=== PATIENT | female | born 1950 | race Caucasian/White ===

== ENCOUNTER 2020-05-05 13:50 | Outpatient (CLI) | payer MEDICARE, OTHER ==
[2020-05-05 14:33] LABS: BASOPHILS % (AUTO) 0.4 %; EOSINOPHILS # (AUTO) 0.2 10^3/uL (0.0-0.7); EOSINOPHILS % (AUTO) 1.8 %; HGB - HEMOGLOBIN 8.7 g/dL (12.0-16.0); LYMPHOCYTES # (AUTO) 0.7 10^3/uL (1.5-3.5); LYMPHOCYTES % (AUTO) 8.8 %; MEAN CORPUSCULAR HEMOGLOBIN 30.5 pg (27.0-31.0); MEAN CORPUSCULAR HGB CONC 32.8 g/dL (32.0-36.0); MEAN PLATELET VOLUME 9.9 fL (7.9-10.8); MONOCYTES # (AUTO) 0.6 10^3/uL (0.0-1.0); MONOCYTES % (AUTO) 6.9 %; NEUTROPHILS # (AUTO) 6.6 10^3/uL (1.5-6.6); NEUTROPHILS % (AUTO) 81.2 %; PLT - PLATELET COUNT 207 10^3/uL (130-450); RED BLOOD COUNT 2.85 10^6/uL (4.20-5.40); RED CELL DISTRIBUTION WIDTH 13.1 % (12.0-15.0); WHITE BLOOD COUNT 8.2 x10^3/uL (4.8-10.8)
[2020-05-05 14:51] LABS: CK- CREATINE KINASE 41 IU/L (22-269)
[2020-05-05 15:03] LABS: THYROID STIMULATING HORMONE 1.49 uIU/mL (0.34-5.60)
[2020-05-05 15:14] LABS: CRP - C-REACTIVE PROTEIN < 1.0 mg/dL (0-1.0)
== END 2020-05-05 13:51 | disposition home or self-care (01) ==
LOC: LAB 13:50
PROVIDERS: ATTEND Internal Medicine
DX: D64.9 Anemia, unspecified (principal); R53.1 Weakness; R20.0 Anesthesia of skin
CPT/HCPCS: 36415; 82550; 82607; 84443; 85025; 85651; 86140

== ENCOUNTER 2020-05-12 08:00 | Outpatient (CLI) | payer MEDICARE, OTHER ==
[2020-05-12 17:59] LABS: ABSOLUTE RETICS # AUTO 0.08 10^6/uL (0.020-0.110); RED BLOOD COUNT 2.9 10^6/uL (4.20-5.40)
[2020-05-12 18:35] LABS: FERRITIN 91.9 ng/mL (11.0-306.8)
[2020-05-12 18:42] LABS: FOLATE 7.4 ng/mL (5.90 - >24.8)
[2020-05-12 18:44] LABS: % IRON SATURATION 17 % (20-50); IRON 63 ug/dL (28-170); TOTAL IRON BINDING CAPACITY 367 ug/dL (250-450); TRANSFERRIN 262 mg/dL (192-382)
== END 2020-05-12 23:59 | disposition home or self-care (01) ==
LOC: LAB 08:00
PROVIDERS: ATTEND Internal Medicine
DX: D64.9 Anemia, unspecified (principal)
CPT/HCPCS: 82668; 82728; 82746; 83540; 84466; 85045

== ENCOUNTER 2020-08-29 12:34 | Outpatient (CLI) | payer MEDICARE, OTHER ==
--- NOTE | 2020-08-29 15:45 | MRI Report ---
PROCEDURE: Lumbar Spine W/O INDICATIONS: MUSCLE WEAKNESS TECHNIQUE: Noncontrast sagittal T1 spin echo and T2 fast echo, sagittal STIR, axial T1 and T2 fast spin echo thr ough the lumbar spine. In cases with scoliosis, additional coronal T2 fast spin echo may be performe d. COMPARISON: None. FINDINGS: Image quality: Excellent. Alignment and Curvature: No plain films are available for comparison. There appears to be a transiti onal element at L5. Numbering system should be confirmed with plain film correlation prior to any lum bar spinal intervention. There is mild, rate 1 retrolisthesis of L3 on L4. Mild grade 1 anterolisthes is of L4 on L5. Bone Marrow: Marrow is of normal overall signal. No acute vertebral body compression fractures. Mi ld reactive signal within the end plates adjacent to the L3-L4 and L4-L5 intervertebral disc. Spinal Cord: Conus medullaris terminates at the mid L1 level. Visualized cord demonstrates normal s ignal and size. Paraspinous Soft Tissues: No paravertebral masses. T12-L1: Mild disc height loss and desiccation. No significant canal, nor foraminal stenosis. L1-L2: Mild disc height loss and desiccation. No significant canal, nor foraminal stenosis. L2-L3: Mild disc desiccation. Mild facet hypertrophy bilaterally. No significant canal, nor forami nal stenosis. L3-L4: Mild disc height loss and desiccation. Mild diffuse disc bulge. Mild facet and ligament flav um hypertrophy. Mild canal stenosis. Mild bilateral foraminal stenosis. L4-L5: Moderate disc height loss and desiccation. Mild diffuse disc bulge. Moderate bilateral facet hypertrophy. Mild canal stenosis. Mild bilateral foraminal stenosis. L5-S1: Rudimentary appearing disc. Mild bilateral facet hypertrophy. No significant canal, nor fora katherine stenosis. IMPRESSION: 1. 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 Correlation with plainfilms f or numbering purposes is recommended prior to any lumbar spinal intervention. 2. Multilevel degenerative disc and facet disease, in addition to epidural lipomatosis and ligamentum flavum hypertrophy. 3. Mild multilevel canal and foraminal stenoses. No neural impingement. Reviewed by: Uche Ivey MD on 08/29/2020 3:44 PM PST Approved by: Uche Ivey MD on 08/29/2020 3:44 PM PST Station ID: [id number]
--- NOTE | 2020-08-29 17:16 | MRI Report ---
PROCEDURE: Pelvis W/O INDICATIONS: MUSCLES WEAKNESS, RECURRENT FALLS, KIDNEY DIEASE TECHNIQUE: Noncontrast coronal oblique T1 and STIR, axial T1 and STIR, sagittal STIR obtained through the sacrum . COMPARISON: Concurrent study of the lumbar spine. FINDINGS: Image quality: Diagnostic. Bony structures: No bone marrow contusions or fractures of the visualized bony structures. Specifica lly, no sacral fracture identified. Soft tissues: There is mild edema within the visualized right gluteus medius and minimus muscles as well as the right iliacus muscle compatible with mild muscle strains. These are incompletely visualiz ed on the current study. Mild to moderate fatty atrophy of the gluteal muscles are also noted bilater ally. No presacral fluid collections. There is a small amount of nonspecific free fluid within the pelvis. Visualized bowel loops are normal in caliber. There is colonic diverticulosis. The urinary bladder is partially distended. IMPRESSION: 1. No evidence of sacral fracture. 2. Mild strains of the right gluteal and iliacus muscles. 3. Small amount of nonspecific free fluid in the pelvis. Reviewed by: Ludwig Ta MD on 08/29/2020 5:15 PM PST Approved by: Ludwig Ta MD on 08/29/2020 5:15 PM PST Station ID: [id number]
== END 2020-08-29 12:35 | disposition home or self-care (01) ==
LOC: DI 12:34
PROVIDERS: ATTEND Internal Medicine Hematology & Oncology
DX: E88.2 Lipomatosis, not elsewhere classified (principal); M47.816 Spondylosis without myelopathy or radiculopathy, lumbar region; M51.36 Other intervertebral disc degeneration, lumbar region; M48.061 Spinal stenosis, lumbar region without neurogenic claudication; M47.817 Spondylosis without myelopathy or radiculopathy, lumbosacral region; S39.012A Strain of muscle, fascia and tendon of lower back, initial encounter

== ENCOUNTER 2020-11-22 20:52 | Outpatient (CLI) | payer MEDICARE, OTHER | END 2020-11-22 20:53 | disposition EMS.NT | LOC: EMS 20:52 | DX: Z03.89 Encounter for observation for other suspected diseases and conditions ruled out (principal) ==

== ENCOUNTER 2020-12-14 23:57 | Outpatient (CLI) | payer MEDICARE, OTHER | END 2020-12-14 23:58 | disposition critical access hospital (66) | LOC: EMS 23:57 | DX: R06.02 Shortness of breath (principal) | CPT/HCPCS: A0425; A0429 ==

== ENCOUNTER 2020-12-15 00:09 | Inpatient (IN) | payer MEDICARE, OTHER ==
[2020-12-15] MEDS ORDERED: DEXAMETHASONE 10 MG/ML VIAL IV STA (00:20)
[2020-12-15] MEDS ORDERED: ALBUTEROL NEB 2.5 MG/3 ML INH STA (00:20)
[2020-12-15] MEDS ORDERED: IPRATROPIUM/ALBUTEROL 3 ML NEB INH STA (00:20)
--- NOTE | 2020-12-15 00:31 | ED Physician Documentation ---
PD HPI DYSPNEA - Stated complaint Stated Complaint: SOA - Chief complaint Chief Complaint: Resp - History obtained from History obtained from: Patient, EMS - Additional information Additional information: Patient is brought to the emergency department by EMS for sudden onset of shortness of breath at her residence at [facility]. History from the patient is somewhat limited, secondary to her degree of dyspnea, but she does deny any history of asthma, COPD, smoking, or CHF previously. She states something like this has happened to her a couple times before but she is not sure what her diagnosis was. Medics state that when they picked her up, her oxygen saturation was 78% on room air. They put her on a nonrebreather mask, which brought her up to around 90, and then switched her over to a DuoNeb. Patient had been noted to have wheezing on their exam. They state the patient seemed to feel a little better, but was still quite tachypneic and sats have been in the low 90s on a nonrebreather. Patient denies swelling or pain in her lower extremities. No chest pain. She has not had any vomiting or diarrhea. Review of her records reveals a history of stage IV kidney disease without hemodialysis, and anemia associated with her kidney disease. She is followed by heme-onc for this. No cardiac or pulmonary diagnoses are listed. Per records, the patient was vaccinated for Covid a couple of months ago. According to son, patient does not want artificial or invasive ventilation or resuscitation in the event of code. Review of Systems Ten Systems: 10 systems reviewed and negative Constitutional: reports: Reviewed and negative. denies: Fever, Chills Eyes: reports: Reviewed and negative Ears: reports: Reviewed and negative Nose: reports: Reviewed and negative Throat: reports: Reviewed and negative Cardiac: reports: Reviewed and negative Respiratory: reports: Dyspnea GI: reports: Reviewed and negative : reports: Reviewed and negative Skin: reports: Reviewed and negative Musculoskeletal: reports: Reviewed and negative Neurologic: reports: Reviewed and negative Psychiatric: reports: Reviewed and negative Endocrine: reports: Reviewed and negative Immunocompromised: reports: Reviewed and negative PD PAST MEDICAL HISTORY - Past Medical History Cardiovascular: None Respiratory: None Neuro: None Endocrine/Autoimmune: None GI: None : None Psych: None Musculoskeletal: None Derm: None - Present Medications Home Medications: Ambulatory Orders Medication Instructions Recorded Confirmed Acetaminophen [Tylenol] 500 mg PO BID 06/20/20 11/28/20 Amlodipine Besylate [Norvasc] 10 mg PO DAILY 06/20/20 11/28/20 Aspirin [Aspirin EC] 81 mg PO DAILY 06/20/20 11/28/20 Atorvastatin [Lipitor] 40 mg PO DAILY 06/20/20 11/28/20 Metoprolol Succinate [Kapspargo 100 mg PO DAILY 06/20/20 11/28/20 Sprinkle] Sevelamer Carbonate [Renvela] 1,600 mg PO DAILY 06/20/20 11/28/20 Sitagliptin Phosphate [Januvia] 25 mg PO DAILY 06/20/20 11/28/20 Sodium Bicarbonate 650 mg PO BID 06/20/20 11/28/20 calcitrioL [Rocaltrol] 0.25 mcg PO 06/20/20 11/28/20 Ergocalciferol [Vitamin D2] 1 cap PO 07/09/20 Hydralazine HCl 150 mg PO BID 07/09/20 11/28/20 calcitrioL [Rocaltrol] 0.5 mcg PO 12/15/20 - Allergies Allergies/Adverse Reactions: Allergies Allergy/AdvReac Type Severity Reaction Status Date / Time No Known Drug Allergies Allergy Verified 11/28/20 11:58 - Social History Smoking Status: Never smoker PD ED PE NORMAL - Vitals Vital signs reviewed: Yes - General General: Well developed/nourished, Other (Patient is alert and in moderate respiratory distress. ) - HEENT HEENT: Atraumatic, PERRL, EOMI, Moist mucous membranes - Neck Neck: Supple, no meningeal sign - Cardiac Cardiac: RRR, No murmur, Strong equal pulses - Respiratory Respiratory: Other (Moderate respiratory distress, speaking in phrases but unable to complete a sentence without taking a breath in the middle. No coughing. Decreased air movement bilateral lower lung fofana. Fine wheezing noted. No rales. Labored respirations with tachypnea and prolonged expiratory phase) - Abdomen Abdomen: Soft, Non tender, Non distended - Derm Derm: Warm and dry, No rash, Other (Moderate pallor.) - Extremities Extremities: No deformity, No edema - Neuro Neuro: Alert and oriented X 3 - Psych Psych: Normal mood, Normal affect Results - Vitals Vitals: Vital Signs - 24 hr 12/15/20 12/15/20 12/15/20 00:19 00:35 01:00 Temperature 36.8 C Heart Rate 121 H 74 72 Respiratory 35 H 44 H 34 H Rate Blood Pressure 138/87 H O2 Saturation 78 L 94 12/15/20 12/15/20 12/15/20 01:30 01:47 02:30 Temperature Heart Rate 73 71 72 Respiratory 31 H 33 H 35 H Rate Blood Pressure 145/65 H 135/59 H O2 Saturation 96 92 93 Oxygen O2 Source Simple Mask Oxygen Flow Rate 10 - EKG (time done) 0023 Rate: Rate (enter#) (70) Rhythm: NSR [place]: Normal Intervals: Prolonged VA QRS: Normal Ischemia: Non specific changes Compare to prior EKG: Old EKG unavailable Computer interpretation: Agree with computer - Labs Labs: Laboratory Tests 12/15/20 12/15/20 12/15/20 00:32 00:32 00:32 WBC 12.0 H RBC 2.96 L Hgb 9.1 L Hct 28.3 L MCV 95.6 MCH 30.7 MCHC 32.2 RDW 14.0 Plt Count 168 MPV 9.6 Neut # (Auto) 9.9 H Lymph # (Auto) 0.7 L [place] # (Auto) 1.1 H Eos # (Auto) 0.2 Baso # (Auto) 0.0 Absolute Nucleated RBC 0.00 Nucleated RBC % 0.0 PT 11.1 INR 1.0 D-Dimer 592.0 H Bld Gas Analysis Time Sample Site ABG pH ABG pCO2 ABG pO2 ABG HCO3 ABG Total CO2 ABG O2 Saturation ABG Base Excess Khadar Test O2 Delivery Device FiO2 Sodium 137 Potassium 4.7 Chloride 103 Carbon Dioxide 20 L Anion Gap 14.0 H BUN 61 H Creatinine 5.7 H Estimated GFR (MDRD) 7 L Glucose 248 H Calcium 10.3 Total Bilirubin 0.9 AST 15 ALT 11 Alkaline Phosphatase 71 Troponin I High Sens B-Natriuretic Peptide Total Protein 8.0 Albumin 3.6 Globulin 4.4 H Albumin/Globulin Ratio 0.8 L Lipase 46 Nasal Adenovirus (PCR) Nasal B. parapertussis DNA (PCR) Nasal Coronavir 229E PCR Nasal Coronavir HKU1 PCR Nasal Coronavir NL63 PCR Nasal Coronavir OC43 PCR Nasal Enterovir/Rhinovir PCR Nasal Influenza B PCR Nasal Influenza A PCR Nasal Parainfluen 1 PCR Nasal Parainfluen 2 PCR Nasal Parainfluen 3 PCR Nasal Parainfluen 4 PCR Nasal RSV (PCR) Nasal B.pertussis DNA PCR Nasal C.pneumoniae (PCR) Han Human Metapneumo PCR Nasal M.pneumoniae (PCR) Nasal SARS-CoV-2 (PCR) 12/15/20 12/15/20 12/15/20 00:32 00:32 01:00 WBC RBC Hgb Hct MCV MCH MCHC RDW Plt Count MPV Neut # (Auto) Lymph # (Auto) [place] # (Auto) Eos # (Auto) Baso # (Auto) Absolute Nucleated RBC Nucleated RBC % PT INR D-Dimer Bld Gas Analysis Time 0104 Sample Site RIGHT RADIAL ABG pH 7.46 H ABG pCO2 27 L ABG pO2 82 ABG HCO3 18.6 L ABG Total CO2 19.4 L ABG O2 Saturation 96 ABG Base Excess -4.4 L Khadar Test POSITIVE O2 Delivery Device SIMPLE MASK FiO2 54.00 Sodium Potassium Chloride Carbon Dioxide Anion Gap BUN Creatinine Estimated GFR (MDRD) Glucose Calcium Total Bilirubin AST ALT Alkaline Phosphatase Troponin I High Sens 23.3 H* B-Natriuretic Peptide 1339 H Total Protein Albumin Globulin Albumin/Globulin Ratio Lipase Nasal Adenovirus (PCR) Nasal B. parapertussis DNA (PCR) Nasal Coronavir 229E PCR Nasal Coronavir HKU1 PCR Nasal Coronavir NL63 PCR Nasal Coronavir OC43 PCR Nasal Enterovir/Rhinovir PCR Nasal Influenza B PCR Nasal Influenza A PCR Nasal Parainfluen 1 PCR Nasal Parainfluen 2 PCR Nasal Parainfluen 3 PCR Nasal Parainfluen 4 PCR Nasal RSV (PCR) Nasal B.pertussis DNA PCR Nasal C.pneumoniae (PCR) Han Human Metapneumo PCR Nasal M.pneumoniae (PCR) Nasal SARS-CoV-2 (PCR) 12/15/20 12/15/20 01:20 02:19 WBC RBC Hgb Hct MCV MCH MCHC RDW Plt Count MPV Neut # (Auto) Lymph # (Auto) [place] # (Auto) Eos # (Auto) Baso # (Auto) Absolute Nucleated RBC Nucleated RBC % PT INR D-Dimer Bld Gas Analysis Time Sample Site ABG pH ABG pCO2 ABG pO2 ABG HCO3 ABG Total CO2 ABG O2 Saturation ABG Base Excess Khadar Test O2 Delivery Device FiO2 Sodium Potassium Chloride Carbon Dioxide Anion Gap BUN Creatinine Estimated GFR (MDRD) Glucose Calcium Total Bilirubin AST ALT Alkaline Phosphatase Troponin I High Sens 22.3 H* B-Natriuretic Peptide Total Protein Albumin Globulin Albumin/Globulin Ratio Lipase Nasal Adenovirus (PCR) NOT DETECTED Nasal B. parapertussis DNA (PCR) NOT DETECTED Nasal Coronavir 229E PCR NOT DETECTED Nasal Coronavir HKU1 PCR NOT DETECTED Nasal Coronavir NL63 PCR NOT DETECTED Nasal Coronavir OC43 PCR NOT DETECTED Nasal Enterovir/Rhinovir PCR NOT DETECTED Nasal Influenza B PCR NOT DETECTED Nasal Influenza A PCR NOT DETECTED Nasal Parainfluen 1 PCR NOT DETECTED Nasal Parainfluen 2 PCR NOT DETECTED Nasal Parainfluen 3 PCR NOT DETECTED Nasal Parainfluen 4 PCR NOT DETECTED Nasal RSV (PCR) NOT DETECTED Nasal B.pertussis DNA PCR NOT DETECTED Nasal C.pneumoniae (PCR) NOT DETECTED Han Human Metapneumo PCR NOT DETECTED Nasal M.pneumoniae (PCR) NOT DETECTED Nasal SARS-CoV-2 (PCR) NOT DETECTED PD MEDICAL DECISION MAKING - ED course Complexity details: reviewed old records, reviewed results, re-evaluated patient, considered differential, d/w patient ED course: The patient appeared quite ill on arrival and was in marked respiratory distress, with labored respirations and a rate in the mid 30s to 40 breaths/min. Heart rate was normal at that time, though blood pressure was mildly elevated. She initially required 100% oxygen by nonrebreather mask to keep her oxygen saturation in the upper 80s while nebulizer treatments were prepared. She was given a DuoNeb plus an albuterol neb, as well as an IV dose of Decadron. This did improve the patient's air movement, and on repeat lung exam, she was noted to have rales throughout her right lung. She did initially still continue to have a high level of need of supplemental oxygen, just to keep her sats around 90. This did gradually improve over the ensuing hour. Chest x-ray showed a normal cardiac silhouette with multifocal consolidation throughout her right lung and consolidation in the left lower lobe, as well, consistent with bilateral pneumonia. Patient had been vaccinated for Covid already, and her respiratory PCR was negative. ABG showed alkalosis with a pH of 7.457, pCO2 of 26.9, and pO2 of 81.9 on with an FiO2 of 100%. Blood cultures were obtained and are pending at this time. Patient had a mildly elevated white blood cell count. Her initial troponin was modestly elevated, but repeat was slightly lower. I suspected, given the patient's history of kidney failure, that the troponin was at or near baseline. Patient's BNP was significantly elevated at over 1000, and D-dimer was also elevated. The patient's GFR was 7, and creatinine was 5.7. On review of patient's prior labs, it did appear that these were both within the range patient has been in for the last 7 months. The pa shalini was given IV Rocephin and Zithromax. I considered the possibility of a PE, although patient did not have any complaints of lower extremity pain or asymmetrical swelling. Due to the patient's poor kidney function, a CT pulmonary angiogram was not possible. I reassessed the patient multiple times during her stay, and she was ultimately found to be feeling quite a bit better, though still required 4 L of oxygen to keep her oxygen saturation in the low 90s. I reviewed the records that we did have, mainly from the patient's charm filter operator helper, and it did appear that the patient had had issues with feeling some dyspnea on exertion previously. It seemed that this was attributed to general deconditioning and poor health. The patient had been admitted to [facility] because she had been feeling too weak to take care of herself at home. The patient's hemoglobin tonight was 9.1, which was around her more recent baseline. I discussed with the patient her situation with her renal failure, and the patient stated that she had seen a steam table associate at [facility] regularly, but that she was not interested in dialysis, as her sister is on dialysis and the patient does not want to have to endure that. The patient was not sure of the last time that she saw the steam table associate, but states that she has mainly been managed by her primary care physician and charm filter operator helper at this point. The patient was doing much better than she had been on arrival, but I felt that she ought to be admitted to the hospital, given the extent of her infiltrates and her hypoxia. I spoke with Dr. Vinson, who did agree to admit the patient to her service. - Critical Care Time(min): 60 Comments: Critical care time was necessary, secondary to high probability of imminent or life threatening deterioration in patient's condition, secondary to acute respiratory distress with hypoxia. Frequent personal assessment and manipulation of the patient's condition was necessary to prevent imminent and life-threatening deterioration. Time Includes: Direct patient care, Review records, Reassess patient, Document care, Coordinate care, Medical consult, See progress note Data interpretation: Labs, Pulse ox, ABG, CXR, Cardiac output, See progress note Departure - Departure Disposition: 66 [facility] DC/Xfer Clinical Impression: Hypoxia Pneumonia Qualifiers: Pneumonia type: due to unspecified organism Laterality: bilateral Lung location: lower lobe of lung Qualified Code(s): J18.9 - Pneumonia, unspecified organism Condition: Serious
[2020-12-15 00:39] LABS: BASOPHILS % (AUTO) 0.3 %; EOSINOPHILS # (AUTO) 0.2 10^3/uL (0.0-0.7); EOSINOPHILS % (AUTO) 1.7 %; HCT - HEMATOCRIT 28.3 % (37.0-47.0); HGB - HEMOGLOBIN 9.1 g/dL (12.0-16.0); LYMPHOCYTES # (AUTO) 0.7 10^3/uL (1.5-3.5); MEAN CORPUSCULAR HEMOGLOBIN 30.7 pg (27.0-31.0); MEAN CORPUSCULAR HGB CONC 32.2 g/dL (32.0-36.0); MEAN CORPUSCULAR VOLUME 95.6 fL (81.0-99.0); MEAN PLATELET VOLUME 9.6 fL (7.9-10.8); MONOCYTES # (AUTO) 1.1 10^3/uL (0.0-1.0); MONOCYTES % (AUTO) 8.9 %; NEUTROPHILS # (AUTO) 9.9 10^3/uL (1.5-6.6); NEUTROPHILS % (AUTO) 82.7 %; PLT - PLATELET COUNT 168 10^3/uL (130-450); RED BLOOD COUNT 2.96 10^6/uL (4.20-5.40)
[2020-12-15 00:58] LABS: ALBUMIN 3.6 g/dL (3.2-5.5); ALBUMIN/GLOBULIN RATIO 0.8 (1.0-2.2); BILIRUBIN,TOTAL 0.9 mg/dL (0.2-1.0); CALCIUM 10.3 mg/dL (8.5-10.3); CREATININE 5.7 mg/dL (0.4-1.0); POTASSIUM 4.7 mmol/L (3.5-5.0)
[2020-12-15 01:04] LABS: PT - PROTHROMBIN TIME 11.1 secs (9.9-12.6)
[2020-12-15 01:05] LABS: ABG PCO2 27 mmHg (34-45); ABG PH 7.46 (7.35-7.45); ABG PO2 82 mmHg (80-100)
[2020-12-15 01:06] LABS: ABG BASE EXCESS -4.4 mmol/L (-2.0-3.0); ABG HCO3 18.6 mmol/L (22.0-26.0); ABG OXYGEN SATURATION 96 % (94-98); ABG TCO2 19.4 MMOL/L (21.0-29.0); ALLEN TEST POSITIVE
[2020-12-15] MEDS ORDERED: AZITHROMYCIN INJ 500 MG in SODIUM CHLORIDE 0.9% 250 ML IV STA (01:40)
[2020-12-15] MEDS ORDERED: cefTRIAXone 2 GM in SODIUM CHLORIDE 0.9% MINIBAG 100 ML IV STA (01:40)
[2020-12-15] MEDS ORDERED: cefTRIAXone 2 GM VIAL ONE (01:53)
[2020-12-15 02:41] LABS: B. PARAPERTUSSIS- RESP PCR PAN NOT DETECTED; B. PERTUSSIS- RESP PCR PANEL NOT DETECTED; C. PNEUMONIAE- RESP PCR PANEL NOT DETECTED; CORONAVIRUS 229E-RESP PCR NOT DETECTED; CORONAVIRUS HKU1-RESP PCR NOT DETECTED; CORONAVIRUS NL63-RESP PCR NOT DETECTED; CORONAVIRUS OC43-RESP PCR NOT DETECTED; HUMAN METAPNEUMOVIRUS NOT DETECTED; INFLUENZA A- RESP PCR PANEL NOT DETECTED; INFLUENZA B - RESP PCR PANEL NOT DETECTED; M. PNEUMONIAE- RESP PCR PANEL NOT DETECTED; PARAINFLUENZA VIRUS 1 NOT DETECTED; PARAINFLUENZA VIRUS 2 NOT DETECTED; PARAINFLUENZA VIRUS 3 NOT DETECTED; PARAINFLUENZA VIRUS 4 NOT DETECTED; RHINOVIRUS/ENTEROVIRUS NOT DETECTED; RSV- RESP PCR PANEL NOT DETECTED; SARS-CoV-2 -RESP PCR PANEL NOT DETECTED
[2020-12-15] MEDS ORDERED: ONDANSETRON ODT 4 MG TABLET TL PRN (03:21)
[2020-12-15] MEDS ORDERED: ONDANSETRON 4 MG/2 ML VIAL IVP PRN (03:21)
[2020-12-15] MEDS ORDERED: oxyCODONE 5 MG TABLET PO PRN (03:21)
[2020-12-15] MEDS ORDERED: ALBUTEROL NEB 2.5 MG/3 ML INH PRN (03:23)
--- NOTE | 2020-12-15 03:38 | HISTORY & PHYSICAL EXAMINATION ---
Chief Complaint - Chief Complaint Chief Complaint: cough and sob History of Present Illness - Admitted From Admitted From:: [facility] via EMS - History Obtained From Records Reviewed: [facility] History obtained from: Dr. Soto and patient Exam Limitations: poor historian and sob - History of Present Illness HPI Comment/Other: This is a 70-year-old female who has a history of chronic kidney disease stage V and is followed by nephrology, and anemia of chronic disease and is followed by oncology. She is on Aranesp, iron, B12. She presents with cough, weakness, shortness of breath for the last few days. She recently moved into [facility] in [place] due to chronic falls requiring EMS help, and right lower extremity weakness. Her oncologist did order an MRI and there is no focal lesion or spinal nerve compression causing the right lower leg weakness and she has been referred to neurology for evaluation. She was due to see them October 27 but canceled due to taxes having to be done. She does not have a history of lung disease. No history of asthma or emphysema. The cough is nonproductive. No hemoptysis. No one else around her is sick. She did receive her Covid vaccine. Most of her history is from the emergency room physicians as the patient is a poor historian with dyspnea. When EMS went to her assisted living facility to pick her up her O2 sats were 78% on room air. She was put on a nonrebreather mask, and DuoNeb. Wheezing was noted. She was evaluated by Dr. Soto in the emergency room. Temperature is 36.8, heart rate was 121, blood pressure 138/87 with a respiratory rate of 35 with moderate respiratory distress. She was unable to complete full sentences without taking a breath in the middle. Decreased air movement bilaterally with fine wheezing. Room air saturation was 78%. Chest x-ray shows multifocal consolidation throughout her right lung and consolidation in the left lower lobe. Initial troponin was 23, and repeat troponin is 22. Her BNP is elevated at 1339. White cell count is 12, hemoglobin 9.1. After treatment for pneumonia with antibiotics, nebulizers, steroids, and oxygen the patient is feeling better. She is less tachypneic. 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 She does not want dialysis. Patient is now admitted to the inpatient setting for treatment of bilateral pneumonia in a patient with renal failure. 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 Mother of multisystem failure at the age of 78. Siblings with chronic kidney disease and her sister is on dialysis and there is a history of strokes in one of them. 2 children healthy Living arrangement: Assisted living Living Situation: Alone Social History Notes: She was living alone at home. For several months now her oncologist has been strongly suggested she be moved to assisted living facility or fdc facility due to her weakness and falls. She even fell in his office with her first visit with him in June 2020. She finally moved to [facility] in the last couple of weeks. She was never a smoker, occasionally drinks alcohol. Is a for 9 years. 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 - Substance History Use: Uses substance without health or social issues: Alcohol Abuse: Recurrent use of substance despite neg consequences: NONE Dependence: Experiences withdrawal or developed tolerances: NONE - POLST Patient has POLST: No POLST Status: DNR Meds/Allgy - Home Medications Home Medications: Ambulatory Orders Medication Instructions Recorded Confirmed Acetaminophen [Tylenol] 500 mg PO BID 06/20/20 11/28/20 Amlodipine Besylate [Norvasc] 10 mg PO DAILY 06/20/20 11/28/20 Aspirin [Aspirin EC] 81 mg PO DAILY 06/20/20 11/28/20 Atorvastatin [Lipitor] 40 mg PO DAILY 06/20/20 11/28/20 Metoprolol Succinate [Kapspargo 100 mg PO DAILY 06/20/20 11/28/20 Sprinkle] Sevelamer Carbonate [Renvela] 1,600 mg PO DAILY 06/20/20 11/28/20 Sitagliptin Phosphate [Januvia] 25 mg PO DAILY 06/20/20 11/28/20 Sodium Bicarbonate 650 mg PO BID 06/20/20 11/28/20 calcitrioL [Rocaltrol] 0.25 mcg PO 06/20/20 11/28/20 Ergocalciferol [Vitamin D2] 1 cap PO 07/09/20 Hydralazine HCl 150 mg PO BID 07/09/20 11/28/20 calcitrioL [Rocaltrol] 0.5 mcg PO 12/15/20 - Allergies Allergies/Adverse Reactions: Allergies Allergy/AdvReac Type Severity Reaction Status Date / Time No Known Drug Allergies Allergy Verified 11/28/20 11:58 Review of Systems - Constitutional Constitutional: reports: Fatigue, Chills, Malaise, Weakness, Poor appetite, Other (All of this has been getting worse over the last year to year and a half. Has been resisting leaving her home due to desire for independence.) - Eyes Eyes: reports: Vision loss (She attributes to aging. She does not know if she has diabetic retinopathy. She cannot remember the last time she saw an imaging scheduler.). denies: Pain, Irritation, Amaurosis - Ears, Nose & Throat Ears, Nose & Throat: denies: Hearing loss, Hearing aids, Postnasal drainage, Sore throat, Hoarseness - Cardiovascular Cariovascular: reports: Exertional dyspnea, Decr. exercise tolerance (Gradually getting worse for the last year and a half. She is now in a wheelchair.). denies: Irregular heart rate, Palpitations, Chest pain - Respiratory Respiratory: reports: Cough, Wheezing, SOB at rest, SOB with exertion. denies: Sputum production, Apnea - Gastrointestinal Gastrointestinal: denies: Abdominal pain, Abdominal distention, Constipation, Diarrhea, Rectal bleeding, Black stools - Genitourinary Genitourinary: reports: Incontinence. denies: Dysuria, Frequency, Urgency - Musculoskeletal Musculoskeletal: reports: Limited range of motion, Muscle weakness (Right leg is particularly painful, and will buckle underneath her unexpectedly causing falls) - Integumentary Integumentary: denies: Rash, Pruritis, Lesions - Neurological Neurological: reports: General weakness, Focal weakness - Psychiatric Psychiatric: reports: Depression - Endocrine Endocrine: denies: Polyuria, Polydypsia, Polyphagia - Hematologic/Lymphatic Hematologic/Lymphatic: reports: Anemia, Bruising Prior Level of Functionality: Was living alone at home, semiindependent in spite of her multiple falls weakness and fatigue. The right shoulder fracture resulted in a severe diminishment in her ability to take care of her self but she persisted in living alone in spite of the falls For over a year and a half. She was finally persuaded to move to assisted living facility and has been there for Just over a week. She needs help with dressing, and can no longer cook for herself, clean house, drive.She uses a wheelchair now. This because her right leg is so weak she falls Exam - Vital Signs Reviewed Vital Signs: Yes Vital Signs: Vital Signs x48h Temp Pulse Resp BP Pulse Ox 12/15/20 02:30 72 35 H 135/59 H 93 12/15/20 01:47 71 33 H 145/65 H 92 12/15/20 01:30 73 31 H 96 12/15/20 01:00 72 34 H 94 12/15/20 00:35 74 44 H 12/15/20 00:19 36.8 C 121 H 35 H 138/87 H 78 L - Physical Exam General Appearance: positive: Alert, Moderate distress (Pursed lip breathing at times, still not able to complete full sentences), Other (5 foot 5 inch female who is 92.9 kg,) Eyes Bilateral: positive: PERRL, EOMI ENT: positive: Dry mucous membranes Neck: positive: No JVD. negative: Stiff neck, Carotid bruit Respiratory: positive: Wheezes, Other (No rib retraction, no use of accessory muscles but she is recruiting her abdominal wall to help her breathe) Peripheral Pulses: positive: 1+ Abdomen: positive: Non-tender, Nml bowel sounds, No distention, Other (Abdominal pannus difficult to assess for organomegaly). negative: Guarding, Rebound Skin: positive: Warm, Dry, Pallor, Other (Multiple bruises on lateral hips, lateral knees, knees, shins.). negative: Diaphoresis, Skin rash Extremities: positive: Full ROM, No pedal edema Neurologic/Psychiatric: positive: Oriented x3, CN's nml (2-12), Weakness. negative: Motor nml (Severe generalized weakness. She needs the help of 2 people to be able to roll her over her side to side, and she cannot be mobile even within the bed and needs help with him to bring her up into the bed to be comfortable.She cannot lift her right leg off the bed, but is able to move her left leg.) Conclusion/Plan - Problem List (1) Acute respiratory failure with hypoxia Conclusion/Plan: This patient does not have a history of lung disease, COPD, congestive heart failure. She is not on home O2. No previous history of asthma. She does have a history of chronic kidney disease stage V and may have early CHF after review of her creatinine and CO2. But she declines dialysis. Plan: Inpatient admission Treat underlying cause which is pneumonia Check echocardiogram (2) Pneumonia Conclusion/Plan: She recently moved into an assisted living facility, but has had no recent hospitalizations. While she is probably immunocompromise from her chronic kidney disease, I do not feel she warrants treatment other than community- acquired pneumonia treatment. Plan: Rocephin and azithromycin Florastor Daily white cell count Qualifiers: Pneumonia type: due to unspecified organism Laterality: bilateral Lung location: lower lobe of lung Qualified Code(s): J18.9 - Pneumonia, unspecified organism (3) Bronchospasm, acute Conclusion/Plan: In a patient who does not have a history of lung disease, emphysema. She could have cardiac asthma. Plan: Scheduled DuoNeb, as needed albuterol, low-dose steroids for 3 days. (4) Acute renal failure superimposed on stage 5 chronic kidney disease, not on chronic dialysis Conclusion/Plan: There is acute worsening that I suspect is most likely due to p.o. intake or lack thereof. That would result in some dehydration. My worry is that she has slipped into needing dialysis because of mild acidosis on CO2 but venous pH is normal. Her BNP is elevated. There is no report of how much urine she is making. Plan: Avoid nephrotoxic agents Check echocardiogram Check bladder scan for urine output Qualifiers: Acute renal failure type: unspecified Qualified Code(s): N17.9 - Acute kidney failure, unspecified; N18.5 - Chronic kidney disease, stage 5 (5) Type 2 diabetes mellitus, uncontrolled Conclusion/Plan: The outpatient setting she is usually on Januvia, and I will switch her over to Lantus and sliding scale insulin. Check glycosylated hemoglobin. Carb co ntrolled diet. Qualifiers: Glycemic state: with hyperglycemia Qualified Code(s): E11.65 - Type 2 diabetes mellitus with hyperglycemia (6) Anemia in chronic kidney disease (CKD) Conclusion/Plan: Currently hemoglobin appears stable. No need for transfusion unless she is below 7. She recently received her Aranesp, dextran on December 12. Plan: I again discussed the need for dialysis in her. If she is hypoxic and short of breath because she is now in congestive heart failure, prognosis is poor. She initially did not know if she did want resuscitation. I explained to her that if she goes into pulmonary or cardiac failure because of her congestive heart failure due to dialysis, lack of dialysis will definitely result in an early . I encouraged her to let us know if she changes her mind. Try not to wait too long since dialysis cannot be done at the last second. And in view of the fact of the poor prognosis with lack of dialysis, she wishes to be DNR Qualifiers: Chronic kidney disease stage: stage 5, not on chronic dialysis Qualified Code(s): N18.5 - Chronic kidney disease, stage 5; D63.1 - Anemia in chronic kidney disease (7) Elevated troponin level not due myocardial infarction Conclusion/Plan: We have high-sensitivity troponins with high normal being 14. In this patient she is in chronic renal failure and I suspect that her shortness of breath, cardiac work-up resulted in enzyme leak. Her trending is "flat". As such I do not suspect NSTEMI (8) Right leg weakness Conclusion/Plan: It is painful, causing enough weakness that she can no longer weight-bear on her leg, and MRI of the back is been normal. The pain is diffuse and down the right leg. Bruising is evident in the right ischial tuberosity skin area. Right lateral knee area. No effusions of the knee. No effusions of the ankle. MRI of the spine has been normal. Plan: Plain film in the morning. She is exhausted tonight. (9) DVT prophylaxis Conclusion/Plan: Started on heparin. Usual dose is 40 mg. Due to her renal failure it will be decreased to 30 mg. - Lab Results Lab results reviewed: Yes Fish Bones: 12/15/20 00:32 12/15/20 00:32 - Diagnostic Imaging Results Diagnostic Imaging Results: positive: Prelim report reviewed Diagnostic Imaging Results Comments: Multifocal consolidation of the right lung and left lung base. Cardiomegaly. 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 - EKG Results EKG Interpreted Independently: No Core Measures - Anticipated LOS I expect patient to be DC'd or transferred within 96 hours.: Yes - DVT/VTE - Prophylaxis VTE/DVT Device ordered at admit?: Yes
[2020-12-15] MEDS ORDERED: LACTATED RINGERS 1,000 ML IV SCH (04:00)
[2020-12-15 05:53] LABS: CREATININE 5.8 mg/dL (0.4-1.0); POTASSIUM 4.4 mmol/L (3.5-5.0)
[2020-12-15] MEDS: IPRATROPIUM/ALBUTEROL 3 ML NEB INH SCH ×4 (07:14→19:50)
[2020-12-15 07:35] LABS: BASOPHILS % (AUTO) 0.3 %; HCT - HEMATOCRIT 26.1 % (37.0-47.0); HGB - HEMOGLOBIN 8.4 g/dL (12.0-16.0); LYMPHOCYTES # (AUTO) 0.3 10^3/uL (1.5-3.5); LYMPHOCYTES % (AUTO) 3.3 %; MEAN CORPUSCULAR HEMOGLOBIN 30.8 pg (27.0-31.0); MEAN CORPUSCULAR HGB CONC 32.2 g/dL (32.0-36.0); MEAN CORPUSCULAR VOLUME 95.6 fL (81.0-99.0); MEAN PLATELET VOLUME 10.6 fL (7.9-10.8); MONOCYTES # (AUTO) 0.1 10^3/uL (0.0-1.0); MONOCYTES % (AUTO) 1.1 %; NEUTROPHILS # (AUTO) 8.8 10^3/uL (1.5-6.6); NEUTROPHILS % (AUTO) 94.7 %; PLT - PLATELET COUNT 163 10^3/uL (130-450); RED BLOOD COUNT 2.73 10^6/uL (4.20-5.40); RED CELL DISTRIBUTION WIDTH 14.1 % (12.0-15.0); WHITE BLOOD COUNT 9.3 x10^3/uL (4.8-10.8)
--- NOTE | 2020-12-15 07:37 | PHARMACY PROGRESS NOTE ---
- Best Possible Medication History Admit Date and Time: 12/15/20 0321 Processed by: Pharmacy Medication History completed: Yes Secondary Source(s): Facility MAR as ONLY source As the person ultimately responsible for medication therapy, providers are able to order a medication from an existing home medication list in [facility] via the "Reconcile Routine" prior to Confirmation of that medication by support group manager. Such practice is discouraged except when the physician, in their clinical judgment, deems that a medical need exists for a medication without regard to previous use.
[2020-12-15] MEDS: SACCHAROMYCES BOULARDII 250 MG CAPSULE PO SCH ×2 (07:58→16:51)
[2020-12-15] MEDS: INSULIN ASPART 300 UNIT/3 ML PEN SUBQ SCH ×6 (07:59→21:38)
[2020-12-15] MEDS ORDERED: INSULIN GLARGINE 300 UNIT/3 ML PEN SUBQ ONE (08:00)
[2020-12-15] MEDS ORDERED: ENOXAPARIN 40 MG/0.4 ML SYRINGE SUBQ SCH ×2 (09:00)
--- NOTE | 2020-12-15 09:13 | XRAY Report ---
PROCEDURE: Chest 1 View X-Ray INDICATIONS: Chest Pain TECHNIQUE: One view of the chest was acquired. COMPARISON: None FINDINGS: Surgical changes and devices: None. Lungs and pleura: There is an overall appearance bilateral pulmonary opacities most severe in the rig ht base. Increased pulmonary vascularity is present. Mediastinum: Mediastinal contours appear normal. Heart size is enlarged. Bones and chest wall: No suspicious bony lesions. Overlying soft tissues appear unremarkable. Old right proximal humeral fracture. IMPRESSION: 1. Bilateral pulmonary opacities suspicious for pneumonia. Underlying areas of pneumonia and/or atele ctasis cannot be excluded. Recommend interval follow-up to document resolution is present underlying mass lesion. The above findings are concordant with preliminary report. Reviewed by: Angelica Crenshaw MD on 12/15/2020 9:12 AM PDT Approved by: Angelica Crenshaw MD on 12/15/2020 9:12 AM PDT Station ID: [id number]
[2020-12-15] MEDS: SODIUM CHLORIDE FLUSH 0.9% 10 ML SYRINGE IVP SCH ×2 (09:23→16:52)
[2020-12-15] MEDS: ENOXAPARIN 30 MG/0.3 ML SYRINGE SUBQ SCH (09:24)
--- NOTE | 2020-12-15 09:41 | Ultrasound Report ---
PROCEDURE: Duplex Ext Veins Bilateral INDICATIONS: BRAEDEN YOUMICHELINE TECHNIQUE: Real-time imaging, as well as color and pulse Doppler interrogation, were performed of the deep veins of both legs from the inguinal ligament to the popliteal fossa. COMPARISON: None FINDINGS: The deep veins are normally compressible, and free of intraluminal thrombus. Color and pu lse Doppler demonstrate normal phasic intravascular flow. There is normal augmentation response to d istal compression maneuver. IMPRESSION: No evidence of bilateral lower extremity DVT. Reviewed by: Uche Ivey MD on 12/15/2020 9:39 AM PDT Approved by: Uche Ivey MD on 12/15/2020 9:39 AM PDT Station ID: [id number]
--- NOTE | 2020-12-15 09:49 | XRAY Report ---
PROCEDURE: Hip w/Pelvis 2-3V RT INDICATIONS: fall w femur and hip pain TECHNIQUE: AP pelvis with lateral view(s) of the right hip(s). COMPARISON: X-ray femur 12/15/2020 FINDINGS: Exam is markedly limited secondary to patient body habitus. Bones: No fractures or dislocations. Pelvic ring appears intact. No suspicious bony lesions. Soft tissues: The visualized bowel gas pattern is normal. No suspicious soft tissue calcifications. IMPRESSION: Markedly limited exam secondary to patient body habitus. No gross fracture is identified . However, if concern persists, CT is highly recommended for better visualization and characterizatio n. Reviewed by: Angelica Crenshaw MD on 12/15/2020 9:48 AM PDT Approved by: Angelica Crenshaw MD on 12/15/2020 9:48 AM PDT Station ID: [id number]
--- NOTE | 2020-12-15 09:51 | XRAY Report ---
PROCEDURE: Femur 2V RT INDICATIONS: falls w hip and femur pain TECHNIQUE: 2 views of the femur were acquired. COMPARISON: X-ray hip 12/15/2020 FINDINGS: Extremely limited exam secondary to patient body habitus in the region of the proximal femur.. Bones: No fractures or dislocations. No suspicious bony lesions. Soft tissues: No suspicious soft tissue calcifications or masses. IMPRESSION: Markedly limited exam particularly in the region of the proximal femur. No gross fracture is identifi ed. If clinical concern persists, CT is recommended for further evaluation and visualization. Reviewed by: Angelica Crenshaw MD on 12/15/2020 9:50 AM PDT Approved by: Angelica Crenshaw MD on 12/15/2020 9:50 AM PDT Station ID: [id number]
[2020-12-15 11:40] LABS: ESTIMATED AVERAGE GLUCOSE 169 mg/dL (70-100); HEMOGLOBIN A1c% 7.5 % (4.27-6.07)
[2020-12-15 15:31] LABS: CALCIUM 9.9 mg/dL (8.5-10.3); CREATININE 5.8 mg/dL (0.4-1.0); POTASSIUM 4.7 mmol/L (3.5-5.0)
--- NOTE | 2020-12-15 16:20 | ADVANCE CARE PLANNING NOTE ---
Advance Care Planning - Planning Encounter Date: 12/15/20 Time: 15:05 Purpose: To complete a POLST form. Parties in Attendance: The patient and her son, Robson. Decisional Capacity of the Patient: She has ability to make her own medical decisions. - Diagnosis for Encounter (1) Acute renal failure superimposed on stage 5 chronic kidney disease, not on chronic dialysis Qualifiers: Acute renal failure type: unspecified Qualified Code(s): N17.9 - Acute kidney failure, unspecified; N18.5 - Chronic kidney disease, stage 5 Summary: The patient has known CKD stage V and now has acute kidney injury admitted for community-acquired pneumonia. She has made it clear that she does not want dialysis after seeing her sister go to dialysis over the past 10 years. - Encounter Subjective/Patient's Story: She joined the [employer] when she was 17 years old and retired 5 years ago. She has a son and daughter as well as many grandchildren. She reports living very fulfilled life and she is very happy with what she has accomplished. She has seen her sister go through dialysis over the past 10 years including multiple ports and infections associated with this. She understands the change in quality of life that comes with dialysis. Objective/Medical Story: She has known CKD stage V and used to see a vessel slagman at [facility]. She is no longer followed there due to her being over 100 miles away. She is looking to get a vessel slagman closer to [facility]. She does see a smog technician in [place], Dr. Rai Green, for anemia. She receives B12 and iron supplementation. She is now admitted for community-acquired pneumonia as well as acute kidney injury superimposed on CKD. She is being treated with IV antibiotics and hydration. Goals of Care: She has accepted that she has worsening renal disease and she has not changed her wishes with regards to dialysis. She has seen her sister go through over the past 10 years and she does not want to do the same. She does not want to put any pressure or emotional stress on her children and so she wants to complete POLST form to reflect her medical wishes so that they do not have to make these decisions for her. Plan: The patient has made it quite clear that she is a DNR and she does not want dialysis. We reviewed a POLST form and this was completed today. She is a DNR with limited interventions. The POLST form was completed to reflect this. Additional Discussion: We discussed what entails of CPR and the risks and benefits of dialysis. Code Status: Do Not Attempt Resuscitation Time spent on advance care plannin
[2020-12-15] MEDS ORDERED: INSULIN GLARGINE 300 UNIT/3 ML PEN SUBQ SCH (21:00)
[2020-12-15] MEDS ORDERED: INSULIN ASPART 300 UNIT/3 ML PEN SUBQ ONE (21:07)
[2020-12-15] MEDS: SODIUM BICARBONATE 650 MG TABLET PO SCH (21:36)
[2020-12-15] MEDS: INSULIN GLARGINE 300 UNIT/3 ML PEN SUBQ SCH (21:39)
[2020-12-16] MEDS: cefTRIAXone 1 GM in SODIUM CHLORIDE 0.9% MINIBAG 100 ML IV SCH (02:02)
[2020-12-16] MEDS: SODIUM CHLORIDE FLUSH 0.9% 10 ML SYRINGE IVP SCH ×3 (02:50→18:23)
[2020-12-16] MEDS: AZITHROMYCIN INJ 500 MG in SODIUM CHLORIDE 0.9% 250 ML IV SCH (02:50)
[2020-12-16] MEDS: ACETAMINOPHEN 325 MG TABLET PO PRN ×3 (03:38→14:28)
[2020-12-16 05:40] LABS: BASOPHILS % (AUTO) 0.2 %; HCT - HEMATOCRIT 22.2 % (37.0-47.0); HGB - HEMOGLOBIN 7.1 g/dL (12.0-16.0); LYMPHOCYTES # (AUTO) 0.5 10^3/uL (1.5-3.5); LYMPHOCYTES % (AUTO) 4.1 %; MEAN CORPUSCULAR HEMOGLOBIN 30.2 pg (27.0-31.0); MEAN CORPUSCULAR VOLUME 94.5 fL (81.0-99.0); MEAN PLATELET VOLUME 10.7 fL (7.9-10.8); MONOCYTES # (AUTO) 0.8 10^3/uL (0.0-1.0); MONOCYTES % (AUTO) 6.8 %; NEUTROPHILS # (AUTO) 9.9 10^3/uL (1.5-6.6); NEUTROPHILS % (AUTO) 87.9 %; PLT - PLATELET COUNT 181 10^3/uL (130-450); RED BLOOD COUNT 2.35 10^6/uL (4.20-5.40); RED CELL DISTRIBUTION WIDTH 13.8 % (12.0-15.0); WHITE BLOOD COUNT 11.3 x10^3/uL (4.8-10.8)
[2020-12-16 05:41] LABS: CALCIUM 9.4 mg/dL (8.5-10.3); CREATININE 5.5 mg/dL (0.4-1.0); MAGNESIUM 2.2 mg/dL (1.7-2.8); PHOSPHORUS 4.7 mg/dL (2.5-4.6); POTASSIUM 4.6 mmol/L (3.5-5.0)
[2020-12-16] MEDS ORDERED: INSULIN ASPART 300 UNIT/3 ML PEN SUBQ SCH (08:00)
[2020-12-16] MEDS: SACCHAROMYCES BOULARDII 250 MG CAPSULE PO SCH ×2 (08:23→18:23)
[2020-12-16] MEDS: ENOXAPARIN 30 MG/0.3 ML SYRINGE SUBQ SCH (08:24)
[2020-12-16] MEDS: INSULIN ASPART 300 UNIT/3 ML PEN SUBQ SCH ×4 (08:24→21:33)
[2020-12-16] MEDS: SODIUM BICARBONATE 650 MG TABLET PO SCH ×2 (08:24→21:33)
--- NOTE | 2020-12-16 09:39 | XRAY Report ---
PROCEDURE: Chest 1 View X-Ray INDICATIONS: sob TECHNIQUE: One view of the chest was acquired. COMPARISON: Chest x-ray 12/15/2020 FINDINGS: Surgical changes and devices: None. Lungs and pleura: Increased pulmonary vascularity is present bilaterally as well as bilateral pulmona ry opacities. Overall appearance is minimally improved compared to prior exam. There is blunting of t he costophrenic angles bilaterally. Mediastinum: Mediastinal contours appear normal. Heart size is enlarged. Bones and chest wall: No suspicious bony lesions. Overlying soft tissues appear unremarkable. IMPRESSION: Persistent appearance of increased vascularity and bilateral opacities suggestive of effusions and ed alejandra. Given appearance of opacities, there is suspicion for superimposed pneumonia. Reviewed by: Angelica Crenshaw MD on 12/16/2020 9:38 AM PDT Approved by: Angelica Crenshaw MD on 12/16/2020 9:38 AM PDT Station ID: [id number]
--- NOTE | 2020-12-16 09:42 | XRAY Report ---
PROCEDURE: Foot 3 View RT INDICATIONS: pain, and fall in home TECHNIQUE: 3 views of the foot were acquired. COMPARISON: None FINDINGS: Bones: No fractures or dislocations. No suspicious bony lesions. Soft tissues: No tibiotalar joint effusion. Achilles tendon appears normal. IMPRESSION: No visualized acute fracture or dislocation. However, occult injury cannot be excluded. Recommend almaz rt interval imaging follow-up in 7-10 days as clinically indicated for additional evaluation. Reviewed by: Angelica Crenshaw MD on 12/16/2020 9:41 AM PDT Approved by: Angelica Crenshaw MD on 12/16/2020 9:41 AM PDT Station ID: [id number]
[2020-12-16] MEDS ORDERED: GABAPENTIN 100 MG CAPSULE PO SCH ×2 (10:00)
--- NOTE | 2020-12-16 12:19 | PROVIDER PROGRESS NOTE ---
Subjective - Prog Note Date Prog Note Date: 12/16/20 - Subjective Pt reports feeling: No change Subjective: Patient present significant dyspnea on today. She also complains of right feel with tingling and numbness. She reported this tingling and numbness was chronic, but she also report she had frequent falls. She continues to decline to have dialysis for her kidney failure. She also agree to have palliative care Current Medications - Current Medications Current Medications: Active Medications Acetaminophen (Acetaminophen 325 Mg Tablet) 650 mg PO Q4HR PRN PRN Reason: Pain 1 to 4 Last Admin: 12/16/20 08:24 Dose: 650 mg Documented by: Albuterol (Albuterol Neb 2.5 Mg/3 Ml) 2.5 mg INH Q4HR PRN PRN Reason: Wheezing Last Admin: 12/16/20 07:32 Dose: 2.5 mg Documented by: Furosemide (Furosemide 40 Mg/4 Ml Vial) 80 mg IVP DAILY [facility] Last Admin: 12/16/20 12:27 Dose: 80 mg Documented by: Gabapentin (Gabapentin 100 Mg Capsule) 100 mg PO Q24H [facility] Heparin Sodium (Porcine) (Heparin 5,000 Unit/Ml Vial) 5,000 unit SUBQ BID [facility] Azithromycin 500 mg/ Sodium (Chloride) 250 mls @ 250 mls/hr IV Q24H [facility] Stop: 12/18/20 03:29 Last Infusion: 12/16/20 03:50 Dose: Infused Documented by: Ceftriaxone Sodium 1 gm/ (Sodium Chloride) 100 mls @ 200 mls/hr IV Q24H [facility] Stop: 12/20/20 02:29 Last Infusion: 12/16/20 02:32 Dose: Infused Documented by: Insulin Aspart (Insulin Aspart 300 Unit/3 Ml Pen) 3 - 11 unit SUBQ 0800,1200,1700,2100 [facility]; Protocol Last Admin: 12/16/20 11:49 Dose: 9 unit Documented by: Insulin Glargine (Insulin Glargine 300 Unit/3 Ml Pen) 20 unit SUBQ QPM [facility] Last Admin: 12/15/20 21:39 Dose: 20 unit Documented by: Ondansetron HCl (Ondansetron Odt 4 Mg Tablet) 4 mg TL Q6HR PRN PRN Reason: Nausea / Vomiting Ondansetron HCl (Ondansetron 4 Mg/2 Ml Vial) 4 mg IVP Q6HR PRN PRN Reason: Nausea / Vomiting Oxycodone HCl (Oxycodone 5 Mg Tablet) 5 mg PO Q4HR PRN PRN Reason: Pain 5 to 7 Saccharomyces Boulardii (Saccharomyces Boulardii 250 Mg Capsule) 250 mg PO BIDWM [facility] Last Admin: 12/16/20 08:23 Dose: 250 mg Documented by: Sodium Bicarbonate (Sodium Bicarbonate 650 Mg Tablet) 650 mg PO BID [facility] Last Admin: 12/16/20 08:24 Dose: 650 mg Documented by: Sodium Chloride (Sodium Chloride Flush 0.9% 10 Ml Syringe) 10 ml IVP PRN PRN PRN Reason: NEEDED PER PROVIDER ORDERS Last Admin: 12/16/20 12:28 Dose: 10 ml Documented by: Sodium Chloride (Sodium Chloride Flush 0.9% 10 Ml Syringe) 10 ml IVP 010 0,0900,1700 [facility] Last Admin: 12/16/20 08:24 Dose: 10 ml Documented by: Acetaminophen [Tylenol] 500 mg PO BID 06/20/20 Aspirin [Aspirin EC] 81 mg PO DAILY 06/20/20 Sevelamer Carbonate [Renvela] 1,600 mg PO DAILY 06/20/20 Sitagliptin Phosphate [Januvia] 25 mg PO DAILY 06/20/20 Sodium Bicarbonate 650 mg PO BID 06/20/20 calcitrioL [Rocaltrol] 0.25 mcg PO SUTUTHSA 06/20/20 Ergocalciferol [Vitamin D2] 50,000 unit PO WE 07/09/20 Hydralazine HCl 150 mg PO BID 07/09/20 Amlodipine Besylate/Benazepril [Lotrel 10-40 mg Capsule] 1 each PO DAILY 12/15/20 Atorvastatin Calcium 40 mg PO QPM 12/15/20 Metoprolol Succinate [Toprol Xl] 100 mg PO DAILY 12/15/20 calcitrioL [Rocaltrol] 0.5 mcg PO MOWEFR 12/15/20 Objective - Vital Signs/Intake & Output Vital Signs: Vital Signs x48h Temp Pulse Pulse Resp BP BP Pulse Ox 12/16/20 11:51 36.8 C 73 26 H 132/54 H 93 12/16/20 08:00 36.3 C L 73 26 H 135/58 H 92 12/16/20 07:33 71 16 Intake & Output: Intake & Output 12/13/20 12/14/20 12/15/20 12/16/20 23:59 23:59 23:59 23:59 Intake Total 1921.66 470 Output Total 450 1000 Balance 1471.66 -530 - Objective General Appearance: positive: Alert. negative: Lethargic Eyes Bilateral: positive: Normal inspection, PERRL, No lid inflammation ENT: positive: ENT inspection nml, No signs of dehydration. negative: Purulent nasal drainage Neck: positive: Nml inspection, Trachea midline. negative: Thyromegaly, Tracheal deviation Respiratory: positive: Chest non-tender, Wheezes, Rales. negative: Breath sounds nml, Rhonchi Cardiovascular: positive: Regular rate & rhythm, No murmur. negative: Tachycardia, Bradycardia, Systolic murmur, Diastolic murmur Peripheral Pulses: 2+ Radial (R), 2+ Radial (L) Abdomen: positive: Non-tender, Nml bowel sounds, No distention. negative: Tenderness Back: positive: Nml inspection Skin: positive: Color nml, Warm, Dry. negative: Cyanosis, Diaphoresis Extremities: positive: Non-tender, No pedal edema. negative: Calf tenderness Neurologic/Psychiatric: positive: Oriented x3. negative: Weakness, Sensory loss, Facial droop, Slurred/abnml speech - Lab Results Fish Bones: 12/16/20 05:05 12/16/20 05:05 Other Labs: Lab Results x24hrs 12/16/20 12/16/20 12/16/20 Range/Units 11:09 07:45 05:05 WBC (4.8-10.8) x10^3/uL RBC (4.20-5.40) 10^6/uL Hgb (12.0-16.0) g/dL Hct (37.0-47.0) % MCV (81.0-99.0) fL MCH (27.0-31.0) pg MCHC (32.0-36.0) g/dL RDW (12.0-15.0) % Plt Count (130-450) 10^3/uL MPV (7.9-10.8) fL Neut # (Auto) (1.5-6.6) 10^3/uL Lymph # (Auto) (1.5-3.5) 10^3/uL Posey # (Auto) (0.0-1.0) 10^3/uL Eos # (Auto) (0.0-0.7) 10^3/uL Baso # (Auto) (0.0-0.1) 10^3/uL Absolute Nucleated RBC x10^3/uL Nucleated RBC % /100WBC Sodium (135-145) mmol/L Potassium (3.5-5.0) mmol/L Chloride (101-111) mmol/L Carbon Dioxide (21-32) mmol/L Anion Gap (6-13) BUN (6-20) mg/dL Creatinine (0.4-1.0) mg/dL Estimated GFR (MDRD) (>89) Glucose (70-100) mg/dL POC Whole Bld Glucose 280 H 287 H (70 - 100) mg/dL Calcium (8.5-10.3) mg/dL Phosphorus (2.5-4.6) mg/dL Magnesium (1.7-2.8) mg/dL B-Natriuretic Peptide 1113 H (5-100) pg/mL 12/16/20 12/16/20 12/15/20 Range/Units 05:05 05:05 20:36 WBC 11.3 H (4.8-10.8) x10^3/uL RBC 2.35 L (4.20-5.40) 10^6/uL Hgb 7.1 L (12.0-16.0) g/dL Hct 22.2 L (37.0-47.0) % MCV 94.5 (81.0-99.0) fL MCH 30.2 (27.0-31.0) pg MCHC 32.0 (32.0-36.0) g/dL RDW 13.8 (12.0-15.0) % Plt Count 181 (130-450) 10^3/uL MPV 10.7 (7.9-10.8) fL Neut # (Auto) 9.9 H (1.5-6.6) 10^3/uL Lymph # (Auto) 0.5 L (1.5-3.5) 10^3/uL Posey # (Auto) 0.8 (0.0-1.0) 10^3/uL Eos # (Auto) 0.0 (0.0-0.7) 10^3/uL Baso # (Auto) 0.0 (0.0-0.1) 10^3/uL Absolute Nucleated RBC 0.00 x10^3/uL Nucleated RBC % 0.0 /100WBC Sodium 134 L (135-145) mmol/L Potassium 4.6 (3.5-5.0) mmol/L Chloride 102 (101-111) mmol/L Carbon Dioxide 19 L (21-32) mmol/L Anion Gap 13.0 (6-13) BUN 72 H (6-20) mg/dL Creatinine 5.5 H (0.4-1.0) mg/dL Estimated GFR (MDRD) 8 L (>89) Glucose 293 H (70-100) mg/dL POC Whole Bld Glucose 393 H (70 - 100) mg/dL Calcium 9.4 (8.5-10.3) mg/dL Phosphorus 4.7 H (2.5-4.6) mg/dL Magnesium 2.2 (1.7-2.8) mg/dL B-Natriuretic Peptide (5-100) pg/mL 12/15/20 12/15/20 Range/Units 16:42 15:13 WBC (4.8-10.8) x10^3/uL RBC (4.20-5.40) 10^6/uL Hgb (12.0-16.0) g/dL Hct (37.0-47.0) % MCV (81.0-99.0) fL MCH (27.0-31.0) pg MCHC (32.0-36.0) g/dL RDW (12.0-15.0) % Plt Count (130-450) 10^3/uL MPV (7.9-10.8) fL Neut # (Auto) (1.5-6.6) 10^3/uL Lymph # (Auto) (1.5-3.5) 10^3/uL Posey # (Auto) (0.0-1.0) 10^3/uL Eos # (Auto) (0.0-0.7) 10^3/uL Baso # (Auto) (0.0-0.1) 10^3/uL Absolute Nucleated RBC x10^3/uL Nucleated RBC % /100WBC Sodium 134 L (135-145) mmol/L Potassium 4.7 (3.5-5.0) mmol/L Chloride 102 (101-111) mmol/L Carbon Dioxide 19 L (21-32) mmol/L Anion Gap 13.0 (6-13) BUN 68 H (6-20) mg/dL Creatinine 5.8 H (0.4-1.0) mg/dL Estimated GFR (MDRD) 7 L (>89) Glucose 381 H (70-100) mg/dL POC Whole Bld Glucose 374 H (70 - 100) mg/dL Calcium 9.9 (8.5-10.3) mg/dL Phosphorus (2.5-4.6) mg/dL Magnesium (1.7-2.8) mg/dL B-Natriuretic Peptide (5-100) pg/mL ABX Reporting Has patient been on IV antibiotics over the past 48 hours?: Yes Assessment/Plan - Problem List (1) Dyspnea Impression: patient present shortness of breath today with RR 26/27. pt still need 4 liter of O2 support. CXR reveals persisted increased vascular bilateral pulmonary edema and effusion, and suspicion of superimposed pneumonia. pt had over 1000 BNP, ECHO reveals preserved EF but mild right heart abnormal pressure. pt has stage 5 renal failure and decline to have dialysis. we will give high dosage lasix to see if diuretics works for pt to reduce pulmonary edema and improve her respiratory status. pt's BP is tolerated to have diuretics now. (2) Acute respiratory failure with hypoxia Conclusion/Plan: pt still need 4 liter of O2 support. it is likely caused by her combination of pulmonary edema, fluid over-loaded plus pneumonia order lasix, continue antibiotics (3) Pneumonia continue Rocephin and azithromycin Florastor Daily white cell count (4) Bronchospasm, acute In a patient who does not have a history of lung disease, emphysema. She could have cardiac asthma. Scheduled DuoNeb, as needed albuterol, hold steroid because of pulmonary edema. supplement of O2 as needed (5) Acute renal failure superimposed on stage 5 chronic kidney disease, not on chronic dialysis pt decline to have dialysis, she had stage 5 renal failure. she agree to have palliative care consult, based her diastolic heart failure and renal, her prognosis is poor. Plan: Avoid nephrotoxic agents Check echocardiogram Check bladder scan for urine output (6) Type 2 diabetes mellitus, uncontrolled continue to have Lantus and sliding scale insulin. A1C is 7.5. Carb controlled diet. (7) Anemia in chronic kidney disease (CKD) Conclusion/Plan: Currently hemoglobin 7.1. untill she is below 7 then consideration of transfusion of blood. She recently received her Aranesp, dextran on December 12. it is likely caused by her renal failure chronic disease. will have anemia study, and followup with the study.her prognosis is poor, and consult with palliative care. (8) Elevated troponin level not due myocardial infarction Conclusion/Plan: We have high-sensitivity troponins with high normal being 14. In this patient she is in chronic renal failure and I suspect that her shortness of breath, cardiac work-up resulted in enzyme leak. Her trending is "flat". 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 pt report she had frequent fall, check right foot which has no acute fracture or dislocation. pt has no other focal neurology deficient, this is her chronic conditions, no consideration of TIA/Stroke at this point. order gabapentin (10) DVT prophylaxis Conclusion/Plan: Started on heparin.
[2020-12-16] MEDS: FUROSEMIDE 40 MG/4 ML VIAL IVP SCH (12:27)
[2020-12-16] MEDS: SODIUM CHLORIDE FLUSH 0.9% 10 ML SYRINGE IVP PRN (12:28)
[2020-12-16 14:55] LABS: ABSOLUTE RETICS # AUTO 0.065 10^6/uL (0.020-0.110); RED BLOOD COUNT 2.55 10^6/uL (4.20-5.40); RETICULOCYTE COUNT % (AUTO) 2.54 % (0.5-2.3)
[2020-12-16 15:24] LABS: % IRON SATURATION 13 % (20-50); IRON 34 ug/dL (28-170); TOTAL IRON BINDING CAPACITY 255 ug/dL (250-450); TRANSFERRIN 182 mg/dL (192-382)
[2020-12-16 15:27] LABS: FERRITIN 377.4 ng/mL (11.0-306.8)
[2020-12-16] MEDS: INSULIN GLARGINE 300 UNIT/3 ML PEN SUBQ SCH (21:34)
[2020-12-17] MEDS: SODIUM CHLORIDE FLUSH 0.9% 10 ML SYRINGE IVP SCH ×3 (01:23→17:17)
[2020-12-17] MEDS: cefTRIAXone 1 GM in SODIUM CHLORIDE 0.9% MINIBAG 100 ML IV SCH (01:23)
[2020-12-17] MEDS: AZITHROMYCIN INJ 500 MG in SODIUM CHLORIDE 0.9% 250 ML IV SCH (02:04)
[2020-12-17 05:37] LABS: BASOPHILS % (AUTO) 0.1 %; EOSINOPHILS % (AUTO) 0.1 %; HCT - HEMATOCRIT 22.5 % (37.0-47.0); HGB - HEMOGLOBIN 7.1 g/dL (12.0-16.0); LYMPHOCYTES # (AUTO) 0.8 10^3/uL (1.5-3.5); MEAN CORPUSCULAR HEMOGLOBIN 30.2 pg (27.0-31.0); MEAN CORPUSCULAR HGB CONC 31.6 g/dL (32.0-36.0); MEAN CORPUSCULAR VOLUME 95.7 fL (81.0-99.0); MEAN PLATELET VOLUME 10.1 fL (7.9-10.8); MONOCYTES # (AUTO) 0.8 10^3/uL (0.0-1.0); MONOCYTES % (AUTO) 8.3 %; NEUTROPHILS # (AUTO) 7.8 10^3/uL (1.5-6.6); NEUTROPHILS % (AUTO) 82.1 %; PLT - PLATELET COUNT 184 10^3/uL (130-450); RED BLOOD COUNT 2.35 10^6/uL (4.20-5.40); RED CELL DISTRIBUTION WIDTH 13.9 % (12.0-15.0); WHITE BLOOD COUNT 9.5 x10^3/uL (4.8-10.8)
[2020-12-17 05:43] LABS: CREATININE 5.6 mg/dL (0.4-1.0); MAGNESIUM 2.3 mg/dL (1.7-2.8); POTASSIUM 4.7 mmol/L (3.5-5.0)
[2020-12-17] MEDS: INSULIN ASPART 300 UNIT/3 ML PEN SUBQ SCH ×4 (08:22→21:10)
[2020-12-17] MEDS: HEPARIN 5,000 UNIT/ML VIAL SUBQ SCH ×2 (08:22→21:12)
[2020-12-17] MEDS: SACCHAROMYCES BOULARDII 250 MG CAPSULE PO SCH ×2 (08:33→17:40)
[2020-12-17] MEDS: FUROSEMIDE 40 MG/4 ML VIAL IVP SCH (08:33)
[2020-12-17] MEDS: polyethylene glycoL 3350 17 GM PACKET PO SCH (08:33)
[2020-12-17] MEDS: SEVELAMER 800 MG TABLET PO SCH ×2 (08:33→21:10)
[2020-12-17] MEDS: SODIUM BICARBONATE 650 MG TABLET PO SCH ×2 (08:34→21:10)
[2020-12-17] MEDS ORDERED: SEVELAMER 800 MG TABLET PO SCH (09:00)
--- NOTE | 2020-12-17 11:12 | CONSULTATION NOTE ---
Palliative Care Consultation - Referral Referring Provider: Fracisco LOVELL Time of Visit: 5316-6053 Referral setting: Hospitalized patient Referral Reason: CKD Stage V/Pneumonia/Goals of Care - Information Sources Records reviewed: Previous records reviewed History/Review of Systems obtained from: Patient Exam limitations: Clinical condition (patient with STM issues; reports feeling "fuzzy") - History of Present Illness Brief History of Present Illness: This is a 70-year-old woman who was admitted acutely for acute respiratory failure with hypoxia, pneumonia, and acute renal failure superimposed on stage V chronic kidney disease not on dialysis. She had recently moved to [facility], was having increased cough, weakness, and shortness of breath but did not recognize her decline, until staff are concerned and identified the hypoxia. She was sent into the emergency room, does not really recall the last couple days. Patient had been quite clear she did not want dialysis, had been managed by a peer financial counselor at [facility], currently is not being followed by nephrology. She is being followed by hematology for anemia of renal disease, has received Aranesp and B12 infusions. She had presented with prior right lower extremity weakness, this has worsened over the last 10 to 12 months, resulting in patient being wheelchair-bound over the last couple months. She has had several falls, which she is found quite traumatic, was having home physical therapy with no improvement. She did have a little work-up with a MRI of her lumbar spine, as well as x-rays with no identified underlying etiology. She does complain of numbness, increased pain with weightbearing, and unable to ambulate regarding this. Patient currently is feeling "somewhat fuzzy", her hemoglobin is 7.1, she is disoriented to time, but is oriented to person and place. She does have some insight into her disorientation, her son reports she has had some increased cognitive issues over the last couple weeks. Patient does have some insight into the seriousness of her illness, she reports she has lost a significant amount of weight, unable to confirm this with the son, as they have not been able to weigh her. She did have a fall 3 years ago, which displaced right humeral fracture, she did not get this repaired, and has some negative feelings regarding this. She does express she does feel like she is beginning to feel like she is coming to the end, which is "okay". She has felt quite depressed, with her worsening functional status and loss of independence, her son has been concerned about her isolation particularly in the context of the pandemic. She was starting to make friends and settle in at [facility]. 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 She had worked at [employer], reports she retired about 5 to 6 years ago. She lost her 9 years ago after a spinal surgery, with a traumatic outcome regarding a PE. Her dog about a year ago, whom she was quite close with, she has had multiple traumatic events over the last few years, she did come to move closer to her son about 5 years ago. With her increased falls and decline in functional status, she had just transition to [facility]. She does have a home in [place], she loves to go to [employer] shopping. She does have her son and his here in the [place] who provide her significant support, as well as her daughter who is planning to come in December from [place]. Family History - Family History Family History: Mother: , Father: , Sister: Alive and Well, Renal Disease/Failure (one sister on dialysis; has 3 other sisters; one brother) Medications/Allergies - Medications Active Medication List: Active Medications Acetaminophen (Acetaminophen 325 Mg Tablet) 650 mg PO Q4HR PRN PRN Reason: Pain 1 to 4 Last Admin: 12/16/20 14:28 Dose: 650 mg Documented by: Albuterol (Albuterol Neb 2.5 Mg/3 Ml) 2.5 mg INH Q4HR PRN PRN Reason: Wheezing Last Admin: 12/16/20 07:32 Dose: 2.5 mg Documented by: Calcitriol (Calcitriol 0.25 Mcg Capsule) 0.5 mcg PO MoWeFr@0900 [facility] Calcitriol (Calcitriol 0.25 Mcg Capsule) 0.25 mcg PO SUTUTHSA [facility] Furosemide (Furosemide 40 Mg/4 Ml Vial) 40 mg IVP DAILY [facility] Gabapentin (Gabapentin 100 Mg Capsule) 100 mg PO Q24H [facility] Heparin Sodium (Porcine) (Heparin 5,000 Unit/Ml Vial) 5,000 unit SUBQ BID [facility] Last Admin: 12/17/20 08:22 Dose: 5,000 unit Documented by: Ceftriaxone Sodium 1 gm/ (Sodium Chloride) 100 mls @ 200 mls/hr IV Q24H [facility] Stop: 12/20/20 02:29 Last Infusion: 12/17/20 01:53 Dose: Infused Documented by: Insulin Aspart (Insulin Aspart 300 Unit/3 Ml Pen) 3 - 11 unit SUBQ 0800,1200,1700,2100 [facility]; Protocol Last Admin: 12/17/20 08:22 Dose: 3 unit Documented by: Insulin Glargine (Insulin Glargine 300 Unit/3 Ml Pen) 20 unit SUBQ QPM [facility] Last Admin: 12/16/20 21:34 Dose: 20 unit Documented by: Ondansetron HCl (Ondansetron Odt 4 Mg Tablet) 4 mg TL Q6HR PRN PRN Reason: Nausea / Vomiting Oxycodone HCl (Oxycodone 5 Mg Tablet) 5 mg PO Q4HR PRN PRN Reason: Pain 5 to 7 Polyethylene Glycol (Polyethylene Glycol 3350 17 Gm Packet) 17 gm PO DAILY [facility] Last Admin: 12/17/20 08:33 Dose: 17 gm Documented by: Saccharomyces Boulardii (Saccharomyces Boulardii 250 Mg Capsule) 250 mg PO BIDWM [facility] Last Admin: 12/17/20 08:33 Dose: 250 mg Documented by: Sevelamer HCl (Sevelamer 800 Mg Tablet) 1,600 mg PO BID [facility] Last Admin: 12/17/20 08:33 Dose: 1,600 mg Documented by: Sodium Bicarbonate (Sodium Bicarbonate 650 Mg Tablet) 650 mg PO BID [facility] Last Admin: 12/17/20 08:34 Dose: 650 mg Documented by: Sodium Chloride (Sodium Chloride Flush 0.9% 10 Ml Syringe) 10 ml IVP PRN PRN PRN Reason: NEEDED PER PROVIDER ORDERS Last Admin: 12/16/20 12:28 Dose: 10 ml Documented by: Sodium Chloride (Sodium Chloride Flush 0.9% 10 Ml Syringe) 10 ml IVP 0100,0900,1700 [facility] Last Admin: 12/17/20 08:34 Dose: 10 ml Documented by: Acetaminophen [Tylenol] 500 mg PO BID 06/20/20 Aspirin [Aspirin EC] 81 mg PO DAILY 06/20/20 Sevelamer Carbonate [Renvela] 1,600 mg PO BID 06/20/20 Sitagliptin Phosphate [Januvia] 25 mg PO DAILY 06/20/20 Sodium Bicarbonate 650 mg PO BID 06/20/20 calcitrioL [Rocaltrol] 0.25 mcg PO SUTUTHSA 06/20/20 Ergocalciferol [Vitamin D2] 50,000 unit PO WE 07/09/20 Hydralazine HCl 150 mg PO BID 07/09/20 Amlodipine Besylate/Benazepril [Lotrel 10-40 mg Capsule] 1 each PO DAILY 12/15/20 Atorvastatin Calcium 40 mg PO QPM 12/15/20 Metoprolol Succinate [Toprol Xl] 100 mg PO DAILY 12/15/20 calcitrioL [Rocaltrol] 0.5 mcg PO MOWEFR 12/15/20 - Allergies Allergies/Adverse Reactions: Allergies Allergy/AdvReac Type Severity Reaction Status Date / Time No Known Drug Allergies Allergy Verified 11/28/20 11:58 Review of Systems - Constitutional Constitutional: reports: Fatigue, Poor appetite (reports early satiet), Weight loss. denies: Fever, Chills - Cardiovascular Cardiovascular: reports: Edema (occasional LE), Exertional dyspnea, Decr. exercise tolerance. denies: Chest pain - Respiratory Respiratory: reports: Cough (improved), SOB at rest, SOB with exertion - Gastrointestinal Gastrointestinal: reports: Early satiety. denies: Constipation, Diarrhea, Nausea, Reflux/heartburn - Genitourinary Genitourinary: reports: Other (on Wick catheter) - Musculoskeletal Musculoskeletal: reports: Muscle aches, Stiffness, Limited range of motion (right side;), Muscle weakness, Transfer issues (using wheelchair at [facility]) - Integumentary Integumentary: reports: Dryness - Neurological Neurological: reports: General weakness, Numbness (right leg; painful to touch), Memory problems (feeling "fuzzy") - Psychiatric Psychiatric: reports: Depression, Anxiety - Endocrine Endocrine: reports: Diabetes type 2 - Hematologic/Lymphatic Hematologic/Lymph: reports: Anemia (worsening 7.1), Recurrent infections (pneumonia being treated with AB) - All Other Systems All Other Systems: reports: Other (limited ROS) Physical Exam - Vital Signs Vital Signs: Vital Signs x48h Temp Pulse Pulse Resp BP Pulse Ox 12/17/20 10:15 67 18 12/17/20 07:33 36.6 C 65 24 142/62 H 94 - Physical Exam General Appearance: positive: No acute distress, Alert Eyes Bilateral: positive: Normal inspection ENT: positive: No signs of dehydration Neck: positive: Trachea midline Cardiovascular: positive: Regular rate & rhythm Respiratory: positive: Diminished in bases, Other (breathless with conversation) Abdomen: positive: Non-tender, Soft, Taut Skin: positive: Pallor, Dryness Extremities: positive: No pedal edema Neurologic/Psychiatric: positive: Disoriented to time, Depressed mood/affect, Flat affect, Other (tearful through conversation) Palliative Care - POLST Patient has POLST: Yes POLST Status: DNR, Selective Treatment (completed with Dr. Ayoub) Pain: Pain worsening, Location (right leg and thigh;) Tiredness/Fatigue: Moderate (4-6) Drowsiness/Sedation: Moderate (4-6) Nausea: None Anorexia: Moderate (4-6) (early satiety), Weight loss ("80 pounds" unable to) Dyspnea: Moderate (4-6), Comment (worse with activity) Depression: Moderate (4-6) Anxiety: Moderate (4-6) Feelings of wellbeing/Perceived Quality of Life: Fair, Acceptable, Worsening Sleep: Sleeps well (reports slept well last night) Constipation: No Performance Status: Patient currently bedbound, reports she is wheelchair-bound at facility. Does need assistance with transfers, reports she has a hospital bed and a lift chair. Her perception is her functional status has declined most rapidly over the last month, and is unable to meet her care needs or be independent. - Palliative Care Discussion: Patient does understand she has CKD 5, and would be a candidate for dialysis. She does not feel that this would be consistent with her wishes, her sister had been on dialysis for over 10 years, she feels like she has had functional decline, loss of independence, does not perceive her quality of life is improving. She has recently moved into assisted living, does appear to be settling in, does like going to meals and meeting other residents. 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 She does understand she is acutely ill, she has not been hospitalized prior to this nor had any surgeries, she reports she is "beginning to feel like life is coming to an end" and is saying that this is "okay". Her biggest worry is being a burden on her children, she would like at end-of-life to have a quiet exit, to be able to say goodbye to her kids but not disrupt their lives as far as being her caregiver. We did discuss that we did not see whether it is coming in the next few weeks over the next few months to years,that [facility] does do end-of-life care and does a nice job. Patient did complete a POLST on 12/15 with her son and Dr. Montes, she does confirm she does not want any heroic measures nor her suffering extended if it was her time. 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 Her short-term goals if she were to recover, is to return to [facility], continue with support of care there, she is hoping to gain some strength, but does not perceive herself as being able to ambulate again. She perceives the trauma of a fall with greater than the trauma of dying. Did speak with son Robson, who has been supporting her over the last few years. Her care needs have been increasing, and certainly concern with her falls. She had just moved into [facility], is hoping for her to have a safe place, has been concerned about her being alone, and wondering if she will improve with increased interaction he feels isolation has not helped her with her "mental acuity". He does not see her being independent again, given her decline. He does understand though did not understand the severity of her illness with CKD stage V, we did discuss the continuum of care including hospice as part of the continuum. Will follow and see how much patient improves, reviewed current findings from today, he is planning to come visit. Results - Lab Results Lab results reviewed: Yes Fish Bones: 12/17/20 05:25 12/17/20 05:25 Lab and Imaging Results: Lab Results x24hrs 12/17/20 12/17/20 12/17/20 Range/Units 11:06 07:32 05:25 WBC (4.8-10.8) x10^3/uL RBC (4.20-5.40) 10^6/uL Hgb (12.0-16.0) g/dL Hct (37.0-47.0) % MCV (81.0-99.0) fL MCH (27.0-31.0) pg MCHC (32.0-36.0) g/dL RDW (12.0-15.0) % Plt Count (130-450) 10^3/uL MPV (7.9-10.8) fL Reticulocyte % (Auto) (0.5-2.3) % Neut # (Auto) (1.5-6.6) 10^3/uL Lymph # (Auto) (1.5-3.5) 10^3/uL Power # (Auto) (0.0-1.0) 10^3/uL Eos # (Auto) (0.0-0.7) 10^3/uL Baso # (Auto) (0.0-0.1) 10^3/uL Absolute Nucleated RBC x10^3/uL Nucleated RBC % /100WBC Absolute Retic (0.020-0.110) 10^6/uL Sodium (135-145) mmol/L Potassium (3.5-5.0) mmol/L Chloride (101-111) mmol/L Carbon Dioxide (21-32) mmol/L Anion Gap (6-13) BUN (6-20) mg/dL Creatinine (0.4-1.0) mg/dL Estimated GFR (MDRD) (>89) Glucose (70-100) mg/dL POC Whole Bld Glucose 181 H 164 H (70 - 100) mg/dL Calcium (8.5-10.3) mg/dL Phosphorus (2.5-4.6) mg/dL Magnesium (1.7-2.8) mg/dL Iron (28-170) ug/dL TIBC (250-450) ug/dL % Saturation (20-50) % Transferrin (192-382) mg/dL Ferritin (11.0-306.8) ng/mL Lactate Dehydrogenase (91-225) IU/L B-Natriuretic Peptide 710 H (5-100) pg/mL Vitamin B12 (180-914) pg/mL 12/17/20 12/17/20 12/17/20 Range/Units 05:25 05:25 05:25 WBC 9.5 (4.8-10.8) x10^3/uL RBC 2.35 L (4.20-5.40) 10^6/uL Hgb 7.1 L (12.0-16.0) g/dL Hct 22.5 L (37.0-47.0) % MCV 95.7 (81.0-99.0) fL MCH 30.2 (27.0-31.0) pg MCHC 31.6 L (32.0-36.0) g/dL RDW 13.9 (12.0-15.0) % Plt Count 184 (130-450) 10^3/uL MPV 10.1 (7.9-10.8) fL Reticulocyte % (Auto) (0.5-2.3) % Neut # (Auto) 7.8 H (1.5-6.6) 10^3/uL Lymph # (Auto) 0.8 L (1.5-3.5) 10^3/uL Power # (Auto) 0.8 (0.0-1.0) 10^3/uL Eos # (Auto) 0.0 (0.0-0.7) 10^3/uL Baso # (Auto) 0.0 (0.0-0.1) 10^3/uL Absolute Nucleated RBC 0.00 x10^3/uL Nucleated RBC % 0.0 /100WBC Absolute Retic (0.020-0.110) 10^6/uL Sodium 135 (135-145) mmol/L Potassium 4.7 (3.5-5.0) mmol/L Chloride 104 (101-111) mmol/L Carbon Dioxide 19 L (21-32) mmol/L Anion Gap 12.0 (6-13) BUN 75 H (6-20) mg/dL Creatinine 5.6 H (0.4-1.0) mg/dL Estimated GFR (MDRD) 7 L (>89) Glucose 180 H (70-100) mg/dL POC Whole Bld Glucose (70 - 100) mg/dL Calcium 9.0 (8.5-10.3) mg/dL Phosphorus 6.0 H (2.5-4.6) mg/dL Magnesium 2.3 (1.7-2.8) mg/dL Iron (28-170) ug/dL TIBC (250-450) ug/dL % Saturation (20-50) % Transferrin (192-382) mg/dL Ferritin (11.0-306.8) ng/mL Lactate Dehydrogenase (91-225) IU/L B-Natriuretic Peptide (5-100) pg/mL Vitamin B12 (180-914) pg/mL 12/16/20 12/16/20 12/16/20 Range/Units 20:29 16:44 14:43 WBC (4.8-10.8) x10^3/uL RBC (4.20-5.40) 10^6/uL Hgb (12.0-16.0) g/dL Hct (37.0-47.0) % MCV (81.0-99.0) fL MCH (27.0-31.0) pg MCHC (32.0-36.0) g/dL RDW (12.0-15.0) % Plt Count (130-450) 10^3/uL MPV (7.9-10.8) fL Reticulocyte % (Auto) (0.5-2.3) % Neut # (Auto) (1.5-6.6) 10^3/uL Lymph # (Auto) (1.5-3.5) 10^3/uL Power # (Auto) (0.0-1.0) 10^3/uL Eos # (Auto) (0.0-0.7) 10^3/uL Baso # (Auto) (0.0-0.1) 10^3/uL Absolute Nucleated RBC x10^3/uL Nucleated RBC % /100WBC Absolute Retic (0.020-0.110) 10^6/uL Sodium (135-145) mmol/L Potassium (3.5-5.0) mmol/L Chloride (101-111) mmol/L Carbon Dioxide (21-32) mmol/L Anion Gap (6-13) BUN (6-20) mg/dL Creatinine (0.4-1.0) mg/dL Estimated GFR (MDRD) (>89) Glucose (70-100) mg/dL POC Whole Bld Glucose 186 H 218 H (70 - 100) mg/dL Calcium (8.5-10.3) mg/dL Phosphorus (2.5-4.6) mg/dL Magnesium (1.7-2.8) mg/dL Iron (28-170) ug/dL TIBC (250-450) ug/dL % Saturation (20-50) % Transferrin (192-382) mg/dL Ferritin (11.0-306.8) ng/mL Lactate Dehydrogenase 177 (91-225) IU/L B-Natriuretic Peptide (5-100) pg/mL Vitamin B12 (180-914) pg/mL 12/16/20 12/16/20 12/16/20 Range/Units 14:43 14:43 14:43 WBC (4.8-10.8) x10^3/uL RBC 2.55 L (4.20-5.40) 10^6/uL Hgb (12.0-16.0) g/dL Hct (37.0-47.0) % MCV (81.0-99.0) fL MCH (27.0-31.0) pg MCHC (32.0-36.0) g/dL RDW (12.0-15.0) % Plt Count (130-450) 10^3/uL MPV (7.9-10.8) fL Reticulocyte % (Auto) 2.54 H (0.5-2.3) % Neut # (Auto) (1.5-6.6) 10^3/uL Lymph # (Auto) (1.5-3.5) 10^3/uL Power # (Auto) (0.0-1.0) 10^3/uL Eos # (Auto) (0.0-0.7) 10^3/uL Baso # (Auto) (0.0-0.1) 10^3/uL Absolute Nucleated RBC x10^3/uL Nucleated RBC % /100WBC Absolute Retic 0.065 (0.020-0.110) 10^6/uL Sodium (135-145) mmol/L Potassium (3.5-5.0) mmol/L Chloride (101-111) mmol/L Carbon Dioxide (21-32) mmol/L Anion Gap (6-13) BUN (6-20) mg/dL Creatinine (0.4-1.0) mg/dL Estimated GFR (MDRD) (>89) Glucose (70-100) mg/dL POC Whole Bld Glucose (70 - 100) mg/dL Calcium (8.5-10.3) mg/dL Phosphorus (2.5-4.6) mg/dL Magnesium (1.7-2.8) mg/dL Iron 34 (28-170) ug/dL TIBC 255 (250-450) ug/dL % Saturation 13 L (20-50) % Transferrin 182 L (192-382) mg/dL Ferritin 377.4 H (11.0-306.8) ng/mL Lactate Dehydrogenase (91-225) IU/L B-Natriuretic Peptide (5-100) pg/mL Vitamin B12 > 7000 H (180-914) pg/mL Impression and Recommendations - Palliative Care Impression: This is a 70-year-old woman who presented acutely with respiratory distress, pneumonia, and acute renal failure superimposed on stage V chronic kidney disease not on chronic dialysis. Patient has had declining functional status, presents with mild cognitive changes, and increasing dependence for caregiving with recent transition to [facility]. Patient's goals are to return back to [facility], hoping to feel better and regain some independence. Patient does have some insight into seriousness of her illness, and is concerned about her declining quality of life. Palliative care to provide support for goals of care and transition planning. Recommendations/Counseling Done: 1. Fatigue. This is multifactorial, including worsening kidney failure, deconditioning, worsening anemia and acute illness. Follow-up with hospitalist regarding transfusion for anemia, patient at baseline is managed by oncology for anemia of renal disease. Patient also benefit from PT/OT frankie, had spoken with Natalie GILBERT and at [facility], they were considering initiating outpatient services in facility prior to hospitalization, would resume this plan on discharge. 2. Depression. This is multifactorial, patient has been quite isolated, does relate a significant amounts of grief and loss with loss of independence, loss of her dog, Not transitioning to new setting. Patient may actually benefit with decreased isolation and better able to engage in conversation. 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 3. CKD stage V. Patient has no history known of COPD or CHF, does present with fluid overload. Review hospice eligibility criteria for renal failure is patient does refuse dialysis, and creatinine clearance is less than 10; (less than 15 for diabetics) patient is 14 (and serum creatinine greater than 8; ( greater than 6 for diabetic) patient is 5.4 ; patient is making urine, does present with some symptoms of fluid overload but not intractable fluid overload, and does not have other comorbidities of chronic lung disease cardiac disease or liver disease. We will follow hospital course, does meet 2/3 of criteria, but most likely would be better served for monitoring through palliative care unless continues to decline or further sequela from her illness during this hospitalization. 4. Right lower extremity pain. It does appear to be neuropathic and description, with numbness component. Patient was initiated on gabapentin, would move this to nighttime dosing and titrate slowly given her renal clearance. 5. Advanced care planning. Patient did complete a POLST with DN AR/DNI and selective treatments with Dr. Ayoub 12/15 with son present. Counseling provided to both patient and son regarding continuum of care palliative versus hospice, confirmed with both patient and son goals of care to focus on quality of life is sues and keeping comfortable, versus prolonging suffering. Patient's hope is to have more time, her daughter is coming to visit in December, and would like both quantity and quality of life if possible, but is concerned about her ongoing loss of independence and decline overall. 90 minutes with greater than 50% of this done in counseling regarding goals of care, setting up rapport, coordination of care with hospital team, and anticipatory guidance with both patient and son.
[2020-12-17] MEDS: GABAPENTIN 100 MG CAPSULE PO SCH (12:17)
[2020-12-17] MEDS: calcitrioL 0.25 MCG CAPSULE PO SCH (12:18)
--- NOTE | 2020-12-17 15:02 | PROVIDER PROGRESS NOTE ---
Subjective - Prog Note Date Prog Note Date: 12/17/20 - Subjective Pt reports feeling: Improved Subjective: Patient report for her breathing she feels much better, she state "we did great job." She still feels significant fatigued, her hemoglobin is 7.1, palliative care provider recommended 1 unit blood transfusion for patient. Current Medications - Current Medications Current Medications: Active Medications Acetaminophen (Acetaminophen 325 Mg Tablet) 650 mg PO Q4HR PRN PRN Reason: Pain 1 to 4 Last Admin: 12/16/20 14:28 Dose: 650 mg Documented by: Albuterol (Albuterol Neb 2.5 Mg/3 Ml) 2.5 mg INH Q4HR PRN PRN Reason: Wheezing Last Admin: 12/16/20 07:32 Dose: 2.5 mg Documented by: Calcitriol (Calcitriol 0.25 Mcg Capsule) 0.5 mcg PO MoWeFr@0900 [facility] Last Admin: 12/17/20 12:18 Dose: 0.5 mcg Documented by: Calcitriol (Calcitriol 0.25 Mcg Capsule) 0.25 mcg PO SUTUTHSA [facility] Furosemide (Furosemide 40 Mg/4 Ml Vial) 40 mg IVP DAILY [facility] Gabapentin (Gabapentin 100 Mg Capsule) 100 mg PO Q24H [facility] Last Admin: 12/17/20 12:17 Dose: 100 mg Documented by: Heparin Sodium (Porcine) (Heparin 5,000 Unit/Ml Vial) 5,000 unit SUBQ BID [facility] Last Admin: 12/17/20 08:22 Dose: 5,000 unit Documented by: Ceftriaxone Sodium 1 gm/ (Sodium Chloride) 100 mls @ 200 mls/hr IV Q24H [facility] Stop: 12/20/20 02:29 Last Infusion: 12/17/20 01:53 Dose: Infused Documented by: Insulin Aspart (Insulin Aspart 300 Unit/3 Ml Pen) 3 - 11 unit SUBQ 0800,1200,1700,2100 [facility]; Protocol Last Admin: 12/17/20 12:18 Dose: 5 unit Documented by: Insulin Glargine (Insulin Glargine 300 Unit/3 Ml Pen) 20 unit SUBQ QPM [facility] Last Admin: 12/16/20 21:34 Dose: 20 unit Documented by: Ondansetron HCl (Ondansetron Odt 4 Mg Tablet) 4 mg TL Q6HR PRN PRN Reason: Nausea / Vomiting Oxycodone HCl (Oxycodone 5 Mg Tablet) 5 mg PO Q4HR PRN PRN Reason: Pain 5 to 7 Polyethylene Glycol (Polyethylene Glycol 3350 17 Gm Packet) 17 gm PO DAILY [facility] Last Admin: 12/17/20 08:33 Dose: 17 gm Documented by: Saccharomyces Boulardii (Saccharomyces Boulardii 250 Mg Capsule) 250 mg PO BIDWM [facility] Last Admin: 12/17/20 08:33 Dose: 250 mg Documented by: Sevelamer HCl (Sevelamer 800 Mg Tablet) 1,600 mg PO BID [facility] Last Admin: 12/17/20 08:33 Dose: 1,600 mg Documented by: Sodium Bicarbonate (Sodium Bicarbonate 650 Mg Tablet) 650 mg PO BID [facility] Last Admin: 12/17/20 08:34 Dose: 650 mg Documented by: Sodium Chloride (Sodium Chloride Flush 0.9% 10 Ml Syringe) 10 ml IVP PRN PRN PRN Reason: NEEDED PER PROVIDER ORDERS Last Admin: 12/16/20 12:28 Dose: 10 ml Documented by: Sodium Chloride (Sodium Chloride Flush 0.9% 10 Ml Syringe) 10 ml IVP 0100,0900,1700 [facility] Last Admin: 12/17/20 08:34 Dose: 10 ml Documented by: Acetaminophen [Tylenol] 500 mg PO BID 06/20/20 Aspirin [Aspirin EC] 81 mg PO DAILY 06/20/20 Sevelamer Carbonate [Renvela] 1,600 mg PO BID 06/20/20 Sitagliptin Phosphate [Januvia] 25 mg PO DAILY 06/20/20 Sodium Bicarbonate 650 mg PO BID 06/20/20 calcitrioL [Rocaltrol] 0.25 mcg PO SUTUTHSA 06/20/20 Ergocalciferol [Vitamin D2] 50,000 unit PO WE 07/09/20 Hydralazine HCl 150 mg PO BID 07/09/20 Amlodipine Besylate/Benazepril [Lotrel 10-40 mg Capsule] 1 each PO DAILY 12/15/20 Atorvastatin Calcium 40 mg PO QPM 12/15/20 Metoprolol Succinate [Toprol Xl] 100 mg PO DAILY 12/15/20 calcitrioL [Rocaltrol] 0.5 mcg PO MOWEFR 12/15/20 Objective - Vital Signs/Intake & Output Vital Signs: Vital Signs x48h Temp Pulse Pulse Pulse Pulse Pulse Resp 12/17/20 12:19 36.4 C L 76 20 12/17/20 11:50 71 76 69 12/17/20 11:49 71 76 69 12/17/20 11:00 24 12/17/20 10:15 67 18 12/17/20 07:33 36.6 C 65 24 BP BP BP BP Pulse Ox 12/17/20 12:19 142/85 H 95 12/17/20 11:50 166/74 H 142/85 H 146/57 H 12/17/20 11:49 166/74 H 142/85 H 146/57 H 12/17/20 11:00 92 12/17/20 10:15 12/17/20 07:33 142/62 H 94 Intake & Output: Intake & Output 12/14/20 12/15/20 12/16/20 12/17/20 23:59 23:59 23:59 23:59 Intake Total 1921.66 620 830 Output Total 450 1500 3600 Balance 1471.66 -654 -8210 - Objective General Appearance: positive: No acute distress, Alert. negative: Lethargic Eyes Bilateral: positive: Normal inspection, PERRL, No lid inflammation ENT: positive: ENT inspection nml, No signs of dehydration. negative: Purulent nasal drainage Neck: positive: Nml inspection, Trachea midline. negative: Thyromegaly, Tr acheal deviation Respiratory: positive: Chest non-tender, No respiratory distress, Rales. negative: Wheezes Cardiovascular: positive: Regular rate & rhythm, No murmur. negative: Tachycardia, Bradycardia, Systolic murmur, Diastolic murmur Peripheral Pulses: 2+ Radial (R), 2+ Radial (L) Abdomen: positive: Non-tender, Nml bowel sounds, No distention. negative: Tenderness Back: positive: Nml inspection Skin: positive: Color nml, Warm, Dry. negative: Cyanosis, Diaphoresis Extremities: positive: Non-tender, Nml appearance, No pedal edema. negative: Calf tenderness Neurologic/Psychiatric: positive: Oriented x3, Sensation nml, Mood/affect nml. negative: Weakness, Sensory loss, Facial droop, Slurred/abnml speech - Lab Results Fish Bones: 12/17/20 05:25 12/17/20 05:25 Other Labs: Lab Results x24hrs 12/17/20 12/17/20 12/17/20 Range/Units 11:53 11:06 07:32 WBC (4.8-10.8) x10^3/uL RBC (4.20-5.40) 10^6/uL Hgb (12.0-16.0) g/dL Hct (37.0-47.0) % MCV (81.0-99.0) fL MCH (27.0-31.0) pg MCHC (32.0-36.0) g/dL RDW (12.0-15.0) % Plt Count (130-450) 10^3/uL MPV (7.9-10.8) fL Neut # (Auto) (1.5-6.6) 10^3/uL Lymph # (Auto) (1.5-3.5) 10^3/uL Day # (Auto) (0.0-1.0) 10^3/uL Eos # (Auto) (0.0-0.7) 10^3/uL Baso # (Auto) (0.0-0.1) 10^3/uL Absolute Nucleated RBC x10^3/uL Nucleated RBC % /100WBC Sodium (135-145) mmol/L Potassium (3.5-5.0) mmol/L Chloride (101-111) mmol/L Carbon Dioxide (21-32) mmol/L Anion Gap (6-13) BUN (6-20) mg/dL Creatinine (0.4-1.0) mg/dL Estimated GFR (MDRD) (>89) Glucose (70-100) mg/dL POC Whole Bld Glucose 181 H 164 H (70 - 100) mg/dL Calcium (8.5-10.3) mg/dL Phosphorus (2.5-4.6) mg/dL Magnesium (1.7-2.8) mg/dL Iron (28-170) ug/dL TIBC (250-450) ug/dL % Saturation (20-50) % Transferrin (192-382) mg/dL Ferritin (11.0-306.8) ng/mL Lactate Dehydrogenase (91-225) IU/L B-Natriuretic Peptide (5-100) pg/mL Vitamin B12 (180-914) pg/mL Blood Type B POSITIVE Blood Type Recheck Antibody Screen NEGATIVE Crossmatch IS Only See Detail 12/17/20 12/17/20 12/17/20 Range/Units 05:25 05:25 05:25 WBC (4.8-10.8) x10^3/uL RBC (4.20-5.40) 10^6/uL Hgb (12.0-16.0) g/dL Hct (37.0-47.0) % MCV (81.0-99.0) fL MCH (27.0-31.0) pg MCHC (32.0-36.0) g/dL RDW (12.0-15.0) % Plt Count (130-450) 10^3/uL MPV (7.9-10.8) fL Neut # (Auto) (1.5-6.6) 10^3/uL Lymph # (Auto) (1.5-3.5) 10^3/uL Day # (Auto) (0.0-1.0) 10^3/uL Eos # (Auto) (0.0-0.7) 10^3/uL Baso # (Auto) (0.0-0.1) 10^3/uL Absolute Nucleated RBC x10^3/uL Nucleated RBC % /100WBC Sodium (135-145) mmol/L Potassium (3.5-5.0) mmol/L Chloride (101-111) mmol/L Carbon Dioxide (21-32) mmol/L Anion Gap (6-13) BUN (6-20) mg/dL Creatinine (0.4-1.0) mg/dL Estimated GFR (MDRD) (>89) Glucose (70-100) mg/dL POC Whole Bld Glucose (70 - 100) mg/dL Calcium (8.5-10.3) mg/dL Phosphorus 6.0 H (2.5-4.6) mg/dL Magnesium (1.7-2.8) mg/dL Iron (28-170) ug/dL TIBC (250-450) ug/dL % Saturation (20-50) % Transferrin (192-382) mg/dL Ferritin (11.0-306.8) ng/mL Lactate Dehydrogenase (91-225) IU/L B-Natriuretic Peptide 710 H (5-100) pg/mL Vitamin B12 (180-914) pg/mL Blood Type Blood Type Recheck B POSITIVE Antibody Screen Crossmatch IS Only 12/17/20 12/17/20 12/16/20 Range/Units 05:25 05:25 20:29 WBC 9.5 (4.8-10.8) x10^3/uL RBC 2.35 L (4.20-5.40) 10^6/uL Hgb 7.1 L (12.0-16.0) g/dL Hct 22.5 L (37.0-47.0) % MCV 95.7 (81.0-99.0) fL MCH 30.2 (27.0-31.0) pg MCHC 31.6 L (32.0-36.0) g/dL RDW 13.9 (12.0-15.0) % Plt Count 184 (130-450) 10^3/uL MPV 10.1 (7.9-10.8) fL Neut # (Auto) 7.8 H (1.5-6.6) 10^3/uL Lymph # (Auto) 0.8 L (1.5-3.5) 10^3/uL Day # (Auto) 0.8 (0.0-1.0) 10^3/uL Eos # (Auto) 0.0 (0.0-0.7) 10^3/uL Baso # (Auto) 0.0 (0.0-0.1) 10^3/uL Absolute Nucleated RBC 0.00 x10^3/uL Nucleated RBC % 0.0 /100WBC Sodium 135 (135-145) mmol/L Potassium 4.7 (3.5-5.0) mmol/L Chloride 104 (101-111) mmol/L Carbon Dioxide 19 L (21-32) mmol/L Anion Gap 12.0 (6-13) BUN 75 H (6-20) mg/dL Creatinine 5.6 H (0.4-1.0) mg/dL Estimated GFR (MDRD) 7 L (>89) Glucose 180 H (70-100) mg/dL POC Whole Bld Glucose 186 H (70 - 100) mg/dL Calcium 9.0 (8.5-10.3) mg/dL Phosphorus (2.5-4.6) mg/dL Magnesium 2.3 (1.7-2.8) mg/dL Iron (28-170) ug/dL TIBC (250-450) ug/dL % Saturation (20-50) % Transferrin (192-382) mg/dL Ferritin (11.0-306.8) ng/mL Lactate Dehydrogenase (91-225) IU/L B-Natriuretic Peptide (5-100) pg/mL Vitamin B12 (180-914) pg/mL Blood Type Blood Type Recheck Antibody Screen Crossmatch IS Only 12/16/20 12/16/20 12/16/20 Range/Units 16:44 14:43 14:43 WBC (4.8-10.8) x10^3/uL RBC (4.20-5.40) 10^6/uL Hgb (12.0-16.0) g/dL Hct (37.0-47.0) % MCV (81.0-99.0) fL MCH (27.0-31.0) pg MCHC (32.0-36.0) g/dL RDW (12.0-15.0) % Plt Count (130-450) 10^3/uL MPV (7.9-10.8) fL Neut # (Auto) (1.5-6.6) 10^3/uL Lymph # (Auto) (1.5-3.5) 10^3/uL Day # (Auto) (0.0-1.0) 10^3/uL Eos # (Auto) (0.0-0.7) 10^3/uL Baso # (Auto) (0.0-0.1) 10^3/uL Absolute Nucleated RBC x10^3/uL Nucleated RBC % /100WBC Sodium (135-145) mmol/L Potassium (3.5-5.0) mmol/L Chloride (101-111) mmol/L Carbon Dioxide (21-32) mmol/L Anion Gap (6-13) BUN (6-20) mg/dL Creatinine (0.4-1.0) mg/dL Estimated GFR (MDRD) (>89) Glucose (70-100) mg/dL POC Whole Bld Glucose 218 H (70 - 100) mg/dL Calcium (8.5-10.3) mg/dL Phosphorus (2.5-4.6) mg/dL Magnesium (1.7-2.8) mg/dL Iron (28-170) ug/dL TIBC (250-450) ug/dL % Saturation (20-50) % Transferrin (192-382) mg/dL Ferritin 377.4 H (11.0-306.8) ng/mL Lactate Dehydrogenase 177 (91-225) IU/L B-Natriuretic Peptide (5-100) pg/mL Vitamin B12 > 7000 H (180-914) pg/mL Blood Type Blood Type Recheck Antibody Screen Crossmatch IS Only 12/16/20 Range/Units 14:43 WBC (4.8-10.8) x10^3/uL RBC (4.20-5.40) 10^6/uL Hgb (12.0-16.0) g/dL Hct (37.0-47.0) % MCV (81.0-99.0) fL MCH (27.0-31.0) pg MCHC (32.0-36.0) g/dL RDW (12.0-15.0) % Plt Count (130-450) 10^3/uL MPV (7.9-10.8) fL Neut # (Auto) (1.5-6.6) 10^3/uL Lymph # (Auto) (1.5-3.5) 10^3/uL Day # (Auto) (0.0-1.0) 10^3/uL Eos # (Auto) (0.0-0.7) 10^3/uL Baso # (Auto) (0.0-0.1) 10^3/uL Absolute Nucleated RBC x10^3/uL Nucleated RBC % /100WBC Sodium (135-145) mmol/L Potassium (3.5-5.0) mmol/L Chloride (101-111) mmol/L Carbon Dioxide (21-32) mmol/L Anion Gap (6-13) BUN (6-20) mg/dL Creatinine (0.4-1.0) mg/dL Estimated GFR (MDRD) (>89) Glucose (70-100) mg/dL POC Whole Bld Glucose (70 - 100) mg/dL Calcium (8.5-10.3) mg/dL Phosphorus (2.5-4.6) mg/dL Magnesium (1.7-2.8) mg/dL Iron 34 (28-170) ug/dL TIBC 255 (250-450) ug/dL % Saturation 13 L (20-50) % Transferrin 182 L (192-382) mg/dL Ferritin (11.0-306.8) ng/mL Lactate Dehydrogenase (91-225) IU/L B-Natriuretic Peptide (5-100) pg/mL Vitamin B12 (180-914) pg/mL Blood Type Blood Type Recheck Antibody Screen Crossmatch IS Only ABX Reporting Has patient been on IV antibiotics over the past 48 hours?: Yes Assessment/Plan - Problem List (1) Dyspnea Impression: 12/17 Patient reported she feel much better for her breathing. She appears no shortness breathing. RR is down to 20 and 95% sats on 3 liter of O2, it is improved. pt had 1500 cc urine on yesterday and 3600 cc on today after pt was given Lasix, and BNP is down to 700 from 1100 on yesterday. continue IV 80mg Lasix on today, then reduce to 40 mg IV on tomorrow. patient present shortness of breath today with RR 26/27. pt still need 4 liter of O2 support. CXR reveals persisted increased vascular bilateral pulmonary edema and effusion, and suspicion of superimposed pneumonia. pt had over 1000 BNP, ECHO reveals preserved EF but mild right heart abnormal pressure. pt has stage 5 renal failure and decline to have dialysis. we will give high dosage lasix to see if diuretics works for pt to reduce pulmonary edema and improve her respiratory status. pt's BP is tolerated to have diuretics now. (2) Acute respiratory failure with hypoxia Conclusion/Plan: 12/17 Patient reported she feel much better for her breathing. it is improved. WBC became normal range. RR is down to 20 and pt has 95% sats on 3 liter of O2. Continue antibiotics azithromycin and Rocephin and IV lasix. pt still need 4 liter of O2 support. it is likely caused by her combination of pulmonary edema, fluid over-loaded plus pneumonia order lasix, continue antibiotics (3) Pneumonia 12/17, improved. WBC became normal range. RR is down to 20 and pt has 95% sats on 3 liter of O2 Continue antibiotics azithromycin continue Rocephin and azithromycin Florastor Daily white cell count (4) Bronchospasm, acute In a patient who does not have a history of lung disease, emphysema. She could have cardiac asthma. Scheduled DuoNeb, as needed albuterol, hold steroid because of pulmonary edema. supplement of O2 as needed (5) Acute renal failure superimposed on stage 5 chronic kidney disease, not on chronic dialysis 12/17 stable, creatinine is 5.6, yesterday is 5.5. 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 and will reduced Lasix dosage on tomorrow. pt decline to have dialysis, she had stage 5 renal failure. she agree to have palliative care consult, based her diastolic heart failure and renal, her prognosis is poor. Plan: Avoid nephrotoxic agents Check echocardiogram Check bladder scan for urine output (6) Type 2 diabetes mellitus, uncontrolled continue to have Lantus and sliding scale insulin. A1C is 7.5. Carb controlled diet. (7) Anemia in chronic kidney disease (CKD) Conclusion/Plan: pt feel fatigue,HGB is 7.1, and Palliative care provide recommended 1 unit blood transfusion for patient. Currently hemoglobin 7.1. untill she is below 7 then consideration of transfusion of blood. She recently received her Aranesp, dextran on December 12. it is likely caused by her renal failure chronic disease. will have anemia study, and followup with the study.her prognosis is poor, and consult with palliative care. (8) Elevated troponin level not due myocardial infarction Conclusion/Plan: We have high-sensitivity troponins with high normal being 14. In this patient she is in chronic renal failure and I suspect that her shortness of breath, cardiac work-up resulted in enzyme leak. Her trending is "flat". As such I do not suspect NSTEMI (9) Right leg parethesia and weakness 12/17 Patient reported she feel better On right leg paresthesia, continue gabapentin. 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 pt report she had frequent fall, check right foot which has no acute fracture or dislocation. pt has no other focal neurology deficient, this is her chronic conditions, no consideration of TIA/Stroke at this point. order gabapentin (10) DVT prophylaxis Conclusion/Plan: Started on heparin.
[2020-12-17] MEDS: ACETAMINOPHEN 325 MG TABLET PO PRN (19:20)
[2020-12-17] MEDS ORDERED: DOCUSATE SODIUM 250 MG CAPSULE PO PRN (20:56)
[2020-12-17] MEDS ORDERED: SENNA 8.6 MG TABLET PO PRN (20:56)
[2020-12-17 21:09] LABS: HCT - HEMATOCRIT 26.6 % (37.0-47.0); HGB - HEMOGLOBIN 8.7 g/dL (12.0-16.0)
[2020-12-17] MEDS: INSULIN GLARGINE 300 UNIT/3 ML PEN SUBQ SCH (21:14)
[2020-12-18] MEDS: cefTRIAXone 1 GM in SODIUM CHLORIDE 0.9% MINIBAG 100 ML IV SCH (01:28)
[2020-12-18] MEDS: SODIUM CHLORIDE FLUSH 0.9% 10 ML SYRINGE IVP SCH ×3 (01:51→16:37)
[2020-12-18 05:27] LABS: MAGNESIUM 2.3 mg/dL (1.7-2.8); PHOSPHORUS 6.9 mg/dL (2.5-4.6)
[2020-12-18] MEDS: SEVELAMER 800 MG TABLET PO SCH ×2 (08:07→21:24)
[2020-12-18] MEDS: SACCHAROMYCES BOULARDII 250 MG CAPSULE PO SCH ×2 (08:07→16:37)
[2020-12-18] MEDS: polyethylene glycoL 3350 17 GM PACKET PO SCH (08:08)
[2020-12-18] MEDS: INSULIN ASPART 300 UNIT/3 ML PEN SUBQ SCH ×4 (08:08→21:25)
[2020-12-18] MEDS: SODIUM BICARBONATE 650 MG TABLET PO SCH ×2 (08:08→21:23)
[2020-12-18] MEDS: HEPARIN 5,000 UNIT/ML VIAL SUBQ SCH ×2 (08:09→21:24)
[2020-12-18 08:30] LABS: BASOPHILS % (AUTO) 0.3 %; EOSINOPHILS # (AUTO) 0.2 10^3/uL (0.0-0.7); EOSINOPHILS % (AUTO) 2.1 %; HCT - HEMATOCRIT 28.9 % (37.0-47.0); HGB - HEMOGLOBIN 9.4 g/dL (12.0-16.0); LYMPHOCYTES % (AUTO) 13.1 %; MEAN CORPUSCULAR HEMOGLOBIN 30.5 pg (27.0-31.0); MEAN CORPUSCULAR HGB CONC 32.5 g/dL (32.0-36.0); MEAN CORPUSCULAR VOLUME 93.8 fL (81.0-99.0); MEAN PLATELET VOLUME 10.1 fL (7.9-10.8); MONOCYTES # (AUTO) 0.9 10^3/uL (0.0-1.0); MONOCYTES % (AUTO) 11.3 %; NEUTROPHILS # (AUTO) 5.4 10^3/uL (1.5-6.6); NEUTROPHILS % (AUTO) 71.3 %; NRBC ABSOLUTE COUNT (AUTO) 0.02 x10^3/uL; NUCLEATED RED BLOOD CELLS AUTO 0.3 /100WBC; PLT - PLATELET COUNT 205 10^3/uL (130-450); RED BLOOD COUNT 3.08 10^6/uL (4.20-5.40); RED CELL DISTRIBUTION WIDTH 13.9 % (12.0-15.0); WHITE BLOOD COUNT 7.5 x10^3/uL (4.8-10.8)
[2020-12-18 08:45] LABS: CALCIUM 9.5 mg/dL (8.5-10.3); CREATININE 5.7 mg/dL (0.4-1.0); POTASSIUM 4.8 mmol/L (3.5-5.0)
[2020-12-18] MEDS: SODIUM CHLORIDE FLUSH 0.9% 10 ML SYRINGE IVP PRN (08:55)
[2020-12-18] MEDS: calcitrioL 0.25 MCG CAPSULE PO SCH (08:55)
[2020-12-18] MEDS ORDERED: FUROSEMIDE 40 MG/4 ML VIAL IVP SCH ×2 (09:00)
--- NOTE | 2020-12-18 11:48 | PROVIDER PROGRESS NOTE ---
Subjective - Prog Note Date Prog Note Date: 12/18/20 - Subjective Pt reports feeling: No change Subjective: pt's BUN is 80 today but pt is alert and oriented on today. she state she feel very tired and hope to have sleep. she report her breath is good. she denies fever, chill, chest pain. Current Medications - Current Medications Current Medications: Active Medications Acetaminophen (Acetaminophen 325 Mg Tablet) 650 mg PO Q4HR PRN PRN Reason: Pain 1 to 4 Last Admin: 12/17/20 19:20 Dose: 650 mg Documented by: Albuterol (Albuterol Neb 2.5 Mg/3 Ml) 2.5 mg INH Q4HR PRN PRN Reason: Wheezing Last Admin: 12/16/20 07:32 Dose: 2.5 mg Documented by: Calcitriol (Calcitriol 0.25 Mcg Capsule) 0.5 mcg PO MoWeFr@0900 [facility] Last Admin: 12/17/20 12:18 Dose: 0.5 mcg Documented by: Calcitriol (Calcitriol 0.25 Mcg Capsule) 0.25 mcg PO SUTUTHSA [facility] Last Admin: 12/18/20 08:55 Dose: 0.25 mcg Documented by: Docusate Sodium (Docusate Sodium 250 Mg Capsule) 250 - 500 mg PO DAILY PRN PRN Reason: Constipation Last Admin: 12/18/20 08:07 Dose: 250 mg Documented by: Furosemide (Furosemide 40 Mg/4 Ml Vial) 40 mg IVP DAILY [facility] Gabapentin (Gabapentin 100 Mg Capsule) 100 mg PO Q24H [facility] Last Admin: 12/17/20 12:17 Dose: 100 mg Documented by: Heparin Sodium (Porcine) (Heparin 5,000 Unit/Ml Vial) 5,000 unit SUBQ BID [facility] Last Admin: 12/18/20 08:09 Dose: 5,000 unit Documented by: Ceftriaxone Sodium 1 gm/ (Sodium Chloride) 100 mls @ 200 mls/hr IV Q24H [facility] Stop: 12/20/20 02:29 Last Infusion: 12/18/20 01:58 Dose: Infused Documented by: Insulin Aspart (Insulin Aspart 300 Unit/3 Ml Pen) 3 - 11 unit SUBQ 0800,1200,1700,2100 [facility]; Protocol Last Admin: 12/18/20 08:08 Dose: 3 unit Documented by: Insulin Glargine (Insulin Glargine 300 Unit/3 Ml Pen) 20 unit SUBQ QPM [facility] Last Admin: 12/17/20 21:14 Dose: 20 unit Documented by: Ondansetron HCl (Ondansetron Odt 4 Mg Tablet) 4 mg TL Q6HR PRN PRN Reason: Nausea / Vomiting Oxycodone HCl (Oxycodone 5 Mg Tablet) 5 mg PO Q4HR PRN PRN Reason: Pain 5 to 7 Polyethylene Glycol (Polyethylene Glycol 3350 17 Gm Packet) 17 gm PO DAILY [facility] Last Admin: 12/18/20 08:08 Dose: 17 gm Documented by: Saccharomyces Boulardii (Saccharomyces Boulardii 250 Mg Capsule) 250 mg PO BIDWM [facility] Last Admin: 12/18/20 08:07 Dose: 250 mg Documented by: Senna (Senna 8.6 Mg Tablet) 8.6 - 17.2 mg PO DAILY PRN PRN Reason: Constipation Last Admin: 12/18/20 08:07 Dose: 8.6 mg Documented by: Sevelamer HCl (Sevelamer 800 Mg Tablet) 1,600 mg PO BID [facility] Last Admin: 12/18/20 08:07 Dose: 1,600 mg Documented by: Sodium Bicarbonate (Sodium Bicarbonate 650 Mg Tablet) 650 mg PO BID [facility] Last Admin: 12/18/20 08:08 Dose: 650 mg Documented by: Sodium Chloride (Sodium Chloride Flush 0.9% 10 Ml Syringe) 10 ml IVP PRN PRN PRN Reason: NEEDED PER PROVIDER ORDERS Last Admin: 12/18/20 08:55 Dose: 10 ml Documented by: Sodium Chloride (Sodium Chloride Flush 0.9% 10 Ml Syringe) 10 ml IVP 0100,0900,1700 [facility] Last Admin: 12/18/20 08:08 Dose: 10 ml Documented by: Acetaminophen [Tylenol] 500 mg PO BID 06/20/20 Aspirin [Aspirin EC] 81 mg PO DAILY 06/20/20 Sevelamer Carbonate [Renvela] 1,600 mg PO BID 06/20/20 Sitagliptin Phosphate [Januvia] 25 mg PO DAILY 06/20/20 Sodium Bicarbonate 650 mg PO BID 06/20/20 calcitrioL [Rocaltrol] 0.25 mcg PO SUTUTHSA 06/20/20 Ergocalciferol [Vitamin D2] 50,000 unit PO WE 12/09/20 Hydralazine HCl 150 mg PO BID 07/09/20 Amlodipine Besylate/Benazepril [Lotrel 10-40 mg Capsule] 1 each PO DAILY 12/15/20 Atorvastatin Calcium 40 mg PO QPM 12/15/20 Metoprolol Succinate [Toprol Xl] 100 mg PO DAILY 12/15/20 calcitrioL [Rocaltrol] 0.5 mcg PO MOWEFR 12/15/20 Objective - Vital Signs/Intake & Output Vital Signs: Vital Signs x48h Temp Pulse Resp BP Pulse Ox 12/18/20 08:55 71 171/69 H 12/18/20 08:00 36.6 C 62 18 163/61 H 93 12/18/20 05:31 36.5 C 66 20 151/66 H 95 Intake & Output: Intake & Output 12/15/20 12/16/20 12/17/20 12/18/20 23:59 23:59 23:59 23:59 Intake Total 1921.66 620 1430 400 Output Total 450 1500 4200 1500 Balance 1471.66 -880 -2770 -1100 - Objective General Appearance: positive: No acute distress, Alert. negative: Lethargic Eyes Bilateral: positive: Normal inspection, PERRL, No lid inflammation ENT: positive: ENT inspection nml, No signs of dehydration. negative: Purulent nasal drainage Neck: positive: Nml inspection, Trachea midline. negative: Thyromegaly, Tracheal deviation Respiratory: positive: Chest non-tender, No respiratory distress, Rales. negative: Wheezes Cardiovascular: positive: Regular rate & rhythm, No murmur. negative: Tachycardia, Bradycardia, Systolic murmur, Diastolic murmur Peripheral Pulses: 2+ Radial (R), 2+ Radial (L) Abdomen: positive: Non-tender, Nml bowel sounds, No distention. negative: Tenderness Back: positive: Nml inspection Skin: positive: Color nml, Warm, Dry. negative: Cyanosis, Diaphoresis Extremities: positive: Non-tender, Nml appearance. negative: Calf tenderness Neurologic/Psychiatric: positive: Oriented x3, Sensation nml, Mood/affect nml. negative: Weakness, Sensory loss, Facial droop, Slurred/abnml speech - Lab Results Fish Bones: 12/18/20 08:25 12/18/20 08:25 Other Labs: Lab Results x24hrs 12/18/20 12/18/20 12/18/20 Range/Units 11:11 08:25 08:25 WBC 7.5 (4.8-10.8) x10^3/uL RBC 3.08 L (4.20-5.40) 10^6/uL Hgb 9.4 L (12.0-16.0) g/dL Hct 28.9 L (37.0-47.0) % MCV 93.8 (81.0-99.0) fL MCH 30.5 (27.0-31.0) pg MCHC 32.5 (32.0-36.0) g/dL RDW 13.9 (12.0-15.0) % Plt Count 205 (130-450) 10^3/uL MPV 10.1 (7.9-10.8) fL Neut # (Auto) 5.4 (1.5-6.6) 10^3/uL Lymph # (Auto) 1.0 L (1.5-3.5) 10^3/uL Sevier # (Auto) 0.9 (0.0-1.0) 10^3/uL Eos # (Auto) 0.2 (0.0-0.7) 10^3/uL Baso # (Auto) 0.0 (0.0-0.1) 10^3/uL Absolute Nucleated RBC 0.02 x10^3/uL Nucleated RBC % 0.3 /100WBC Sodium 138 (135-145) mmol/L Potassium 4.8 (3.5-5.0) mmol/L Chloride 105 (101-111) mmol/L Carbon Dioxide 20 L (21-32) mmol/L Anion Gap 13.0 (6-13) BUN 80 H* (6-20) mg/dL Creatinine 5.7 H (0.4-1.0) mg/dL Estimated GFR (MDRD) 7 L (>89) Glucose 168 H (70-100) mg/dL POC Whole Bld Glucose 195 H (70 - 100) mg/dL Calcium 9.5 (8.5-10.3) mg/dL Phosphorus (2.5-4.6) mg/dL Magnesium (1.7-2.8) mg/dL B-Natriuretic Peptide (5-100) pg/mL Blood Type Blood Type Recheck Antibody Screen Crossmatch IS Only 12/18/20 12/18/20 12/18/20 Range/Units 07:29 04:35 04:35 WBC (4.8-10.8) x10^3/uL RBC (4.20-5.40) 10^6/uL Hgb (12.0-16.0) g/dL Hct (37.0-47.0) % MCV (81.0-99.0) fL MCH (27.0-31.0) pg MCHC (32.0-36.0) g/dL RDW (12.0-15.0) % Plt Count (130-450) 10^3/uL MPV (7.9-10.8) fL Neut # (Auto) (1.5-6.6) 10^3/uL Lymph # (Auto) (1.5-3.5) 10^3/uL Sevier # (Auto) (0.0-1.0) 10^3/uL Eos # (Auto) (0.0-0.7) 10^3/uL Baso # (Auto) (0.0-0.1) 10^3/uL Absolute Nucleated RBC x10^3/uL Nucleated RBC % /100WBC Sodium (135-145) mmol/L Potassium (3.5-5.0) mmol/L Chloride (101-111) mmol/L Carbon Dioxide (21-32) mmol/L Anion Gap (6-13) BUN (6-20) mg/dL Creatinine (0.4-1.0) mg/dL Estimated GFR (MDRD) (>89) Glucose (70-100) mg/dL POC Whole Bld Glucose 152 H (70 - 100) mg/dL Calcium (8.5-10.3) mg/dL Phosphorus 6.9 H (2.5-4.6) mg/dL Magnesium 2.3 (1.7-2.8) mg/dL B-Natriuretic Peptide 1001 H (5-100) pg/mL Blood Type Blood Type Recheck Antibody Screen Crossmatch IS Only 12/17/20 12/17/20 12/17/20 Range/Units 21:04 20:53 16:22 WBC (4.8-10.8) x10^3/uL RBC (4.20-5.40) 10^6/uL Hgb 8.7 L (12.0-16.0) g/dL Hct 26.6 L (37.0-47.0) % MCV (81.0-99.0) fL MCH (27.0-31.0) pg MCHC (32.0-36.0) g/dL RDW (12.0-15.0) % Plt Count (130-450) 10^3/uL MPV (7.9-10.8) fL Neut # (Auto) (1.5-6.6) 10^3/uL Lymph # (Auto) (1.5-3.5) 10^3/uL Sevier # (Auto) (0.0-1.0) 10^3/uL Eos # (Auto) (0.0-0.7) 10^3/uL Baso # (Auto) (0.0-0.1) 10^3/uL Absolute Nucleated RBC x10^3/uL Nucleated RBC % /100WBC Sodium (135-145) mmol/L Potassium (3.5-5.0) mmol/L Chloride (101-111) mmol/L Carbon Dioxide (21-32) mmol/L Anion Gap (6-13) BUN (6-20) mg/dL Creatinine (0.4-1.0) mg/dL Estimated GFR (MDRD) (>89) Glucose (70-100) mg/dL POC Whole Bld Glucose 259 H 239 H (70 - 100) mg/dL Calcium (8.5-10.3) mg/dL Phosphorus (2.5-4.6) mg/dL Magnesium (1.7-2.8) mg/dL B-Natriuretic Peptide (5-100) pg/mL Blood Type Blood Type Recheck Antibody Screen Crossmatch IS Only 12/17/20 12/17/20 Range/Units 11:53 05:25 WBC (4.8-10.8) x10^3/uL RBC (4.20-5.40) 10^6/uL Hgb (12.0-16.0) g/dL Hct (37.0-47.0) % MCV (81.0-99.0) fL MCH (27.0-31.0) pg MCHC (32.0-36.0) g/dL RDW (12.0-15.0) % Plt Count (130-450) 10^3/uL MPV (7.9-10.8) fL Neut # (Auto) (1.5-6.6) 10^3/uL Lymph # (Auto) (1.5-3.5) 10^3/uL Sevier # (Auto) (0.0-1.0) 10^3/uL Eos # (Auto) (0.0-0.7) 10^3/uL Baso # (Auto) (0.0-0.1) 10^3/uL Absolute Nucleated RBC x10^3/uL Nucleated RBC % /100WBC Sodium (135-145) mmol/L Potassium (3.5-5.0) mmol/L Chloride (101-111) mmol/L Carbon Dioxide (21-32) mmol/L Anion Gap (6-13) BUN (6-20) mg/dL Creatinine (0.4-1.0) mg/dL Estimated GFR (MDRD) (>89) Glucose (70-100) mg/dL POC Whole Bld Glucose (70 - 100) mg/dL Calcium (8.5-10.3) mg/dL Phosphorus (2.5-4.6) mg/dL Magnesium (1.7-2.8) mg/dL B-Natriuretic Peptide (5-100) pg/mL Blood Type B POSITIVE Blood Type Recheck B POSITIVE Antibody Screen NEGATIVE Crossmatch IS Only See Detail ABX Reporting Has patient been on IV antibiotics over the past 48 hours?: Yes Assessment/Plan - Problem List (1) Dyspnea Impression: 12/18 pt's BNP increased to over 1000. pt had one unit of blood transfusion. pt feel breath is good. but pt still need 3 liter of O2 to support her on 93% sats. we will continue IV of Lasix, continue supplement of O2 as needed. continue antibiotics treatment course for his PNA. 12/17 Patient reported she feel much better for her breathing. She appears no shortness breathing. RR is down to 20 and 95% sats on 3 liter of O2, it is improved. pt had 1500 cc urine on yesterday and 3600 cc on today after pt was given Lasix, and BNP is down to 700 from 1100 on yesterday. continue IV 80mg Lasix on today, then reduce to 40 mg IV on tomorrow. patient present shortness of breath today with RR 26/27. pt still need 4 liter of O2 support. CXR reveals persisted increased vascular bilateral pulmonary edema and effusion, and suspicion of superimposed pneumonia. pt had over 1000 BNP, ECHO reveals preserved EF but mild right heart abnormal pressure. pt has stage 5 renal failure and decline to have dialysis. we will give high dosage lasix to see if diuretics works for pt to reduce pulmonary edema and improve her respiratory status. pt's BP is tolerated to have diuretics now. (2) Acute renal failure superimposed on stage 5 chronic kidney disease, not on chronic dialysis 12/18 pt has stage 5 renal failure, but pt declined to have dialysis. pt's BUN continue increased. pt clinic feel very tired. pt made urine after she had high dosage of Lasix. The prognosis is poor as I discussed with pt and pt's son. palliative care was consulted for pt. continue lab monitor. 12/17 stable, creatinine is 5.6, yesterday is 5.5. Continue [facility] tester laboratory, Continue intravenous IV lasix. and will reduced Lasix dosage on tomorrow. pt decline to have dialysis, she had stage 5 renal failure. she agree to have palliative care consult, based her diastolic heart failure and renal, her prognosis is poor. Plan: Avoid nephrotoxic agents Check echocardiogram Check bladder scan for urine output (3) Acute respiratory failure with hypoxia Conclusion/Plan: 12/18 slight improved. pt need 3 liter of O2 to support her sats. pt did not take O2 at home before. will continue treatment of PNA and fluid-over loaded 12/17 Patient reported she feel much better for her breathing. it is improved. WBC became normal range. RR is down to 20 and pt has 95% sats on 3 liter of O2. Continue antibiotics azithromycin and Rocephin and IV lasix. pt still need 4 liter of O2 support. it is likely caused by her combination of pulmonary edema, fluid over-loaded plus pneumonia order lasix, continue antibiotics (4)diastolic heart failure 12/18Patient's ECHO show preserved EF but with RVSP 47 mmHG and mild abnormal right heart pressure. pt had significantly elevated BNP, clinic pt present pulmonary edema and fluid -overloaded. we will continue IV of Lasix, lab monitor (5) Pneumonia 12/17, improved. WBC became normal range. RR is down to 20 and pt has 95% sats on 3 liter of O2 Continue antibiotics azithromycin continue Rocephin and azithromycin Florastor Daily white cell count (6) Bronchospasm, acute In a patient who does not have a history of lung disease, emphysema. She could have cardiac asthma. Scheduled DuoNeb, as needed albuterol, hold steroid because of pulmonary edema. supplement of O2 as needed (7) Type 2 diabetes mellitus, uncontrolled continue to have Lantus and sliding scale insulin. A1C is 7.5. Carb controlled diet. (8) Anemia in chronic kidney disease (CKD) Conclusion/Plan: 12/18 improved. HGB is 9.4 after one unit of blood transfusion per palliative care's recommendation. continue lab and vital monitor pt feel fatigue,HGB is 7.1, and Palliative care provide recommended 1 unit bl ood transfusion for patient. Currently hemoglobin 7.1. untill she is below 7 then consideration of transfusion of blood. She recently received her Aranesp, dextran on December 12. it is likely caused by her renal failure chronic disease. will have anemia study, and followup with the study.her prognosis is poor, and consult with palliative care. (9) Elevated troponin level not due myocardial infarction Conclusion/Plan: We have high-sensitivity troponins with high normal being 14. In this patient she is in chronic renal failure and I suspect that her shortness of breath, cardiac work-up resulted in enzyme leak. Her trending is "flat". As such I do not suspect NSTEMI (10) Right leg parethesia and weakness 12/17 Patient reported she feel better On right leg paresthesia, continue gabapentin. 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 pt report she had frequent fall, check right foot which has no acute fracture or dislocation. pt has no other focal neurology deficient, this is her chronic conditions, no consideration of TIA/Stroke at this point. order gabapentin (11) DVT prophylaxis Conclusion/Plan: Started on heparin.
[2020-12-18] MEDS: GABAPENTIN 100 MG CAPSULE PO SCH (11:56)
--- NOTE | 2020-12-18 15:43 | CONSULTATION NOTE ---
Palliative Care Follow Up - Referral Referring Provider: Kingsley Time of Visit: [id number] Referral setting: Hospitalized patient Referral Reason: CKD V/ Pneumonia/Goals of Care - Information Sources Records reviewed: RN notes reviewed, Previous records reviewed - History of Present Illness Update Brief HPI Update: Please see 12/17 for complete history. This is a 70-year-old woman who was admitted acutely for acute respiratory failure with hypoxia, pneumonia, and acute renal failure superimposed on stage V chronic kidney disease not on dialysis. She did receive 1 unit packed red blood cells yesterday, with improvement in energy, patient is much more alert, able to engage, her hemoglobin is up to 9.4. She reports she feels better though continues to have persistent fatigue. She reports though she is still somewhat fuzzy around the edges, she is feeling clearer. She does remember meeting me yesterday, and some of the conversation, but a poor recall over most of it. She reports her breathing is much easier, she does get some shortness of breath with persistent conversation, but less respiratory distress noted. Her cough is dry only intermittent, she has normalized WBC, she is still on oxygen, though most likely can be weaned off as she is no underlying respiratory disease and is continuing to improve. Palliative care has been meeting with patient, to follow-up regarding goals of care, given her decision not to pursue dialysis, this is her first acute hospitalization. She is seen by oncology for her anemia of renal disease. She is not currently followed by long goods drier, will need to revisit patient's goals of care if this would be an appropriate referral. Patient with right leg numbness, reports this is improved, did demonstrate she is better able to move it, she does have some hyper analgesia effects with it, with severe short stabbing pain with touch, but reports this is improved. She does appear to be responding to the gabapentin, we also have not moved to nighttime, as it does make her drowsy. Social History - Living Situation Living arrangement: Assisted living Living Situation: Alone Support System: Patient joined the [employer] 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 She had worked at [employer], reports she retired about 5 to 6 years ago. She lost her 9 years ago after a spinal surgery, with a traumatic outcome regarding a PE. Her dog about a year ago, whom she was quite close with, she has had multiple traumatic events over the last few years, she did come to move closer to her son about 5 years ago. With her increased falls and decline in functional status, she had just transition to [facility]. She does have a home in [place], she loves to go to mobile mum shopping. She does have her son and his [place] who provide her significant support, as well as her daughter who is planning to come in December from [place]. Patient expresses her long-term goal would be to return to her own home setting, with companionship support if she were to regain functional status. This though is tempered by her acknowledgment of her worsening kidney disease, and expected shortened life expectancy. Medications/Allergies - Medications Active Medication List: Active Medications Acetaminophen (Acetaminophen 325 Mg Tablet) 650 mg PO Q4HR PRN PRN Reason: Pain 1 to 4 Last Admin: 12/17/20 19:20 Dose: 650 mg Documented by: Albuterol (Albuterol Neb 2.5 Mg/3 Ml) 2.5 mg INH Q4HR PRN PRN Reason: Wheezing Last Admin: 12/16/20 07:32 Dose: 2.5 mg Documented by: Calcitriol (Calcitriol 0.25 Mcg Capsule) 0.5 mcg PO MoWeFr@0900 [facility] Last Admin: 12/17/20 12:18 Dose: 0.5 mcg Documented by: Calcitriol (Calcitriol 0.25 Mcg Capsule) 0.25 mcg PO SUTUTHSA [facility] Last Admin: 12/18/20 08:55 Dose: 0.25 mcg Documented by: Docusate Sodium (Docusate Sodium 250 Mg Capsule) 250 - 500 mg PO DAILY PRN PRN Reason: Constipation Last Admin: 12/18/20 08:07 Dose: 250 mg Documented by: Furosemide (Furosemide 40 Mg/4 Ml Vial) 40 mg IVP DAILY [facility] Gabapentin (Gabapentin 100 Mg Capsule) 100 mg PO Q24H [facility] Heparin Sodium (Porcine) (Heparin 5,000 Unit/Ml Vial) 5,000 unit SUBQ BID [facility] Last Admin: 12/18/20 08:09 Dose: 5,000 unit Documented by: Ceftriaxone Sodium 1 gm/ (Sodium Chloride) 100 mls @ 200 mls/hr IV Q24H [facility] Stop: 12/20/20 02:29 Last Infusion: 12/18/20 01:58 Dose: Infused Documented by: Insulin Aspart (Insulin Aspart 300 Unit/3 Ml Pen) 3 - 11 unit SUBQ 0800,1200,1700,2100 [facility]; Protocol Last Admin: 12/18/20 11:56 Dose: 5 unit Documented by: Insulin Glargine (Insulin Glargine 300 Unit/3 Ml Pen) 20 unit SUBQ QPM [facility] Last Admin: 12/17/20 21:14 Dose: 20 unit Documented by: Ondansetron HCl (Ondansetron Odt 4 Mg Tablet) 4 mg TL Q6HR PRN PRN Reason: Nausea / Vomiting Oxycodone HCl (Oxycodone 5 Mg Tablet) 5 mg PO Q4HR PRN PRN Reason: Pain 5 to 7 Polyethylene Glycol (Polyethylene Glycol 3350 17 Gm Packet) 17 gm PO DAILY [facility] Last Admin: 12/18/20 08:08 Dose: 17 gm Documented by: Saccharomyces Boulardii (Saccharomyces Boulardii 250 Mg Capsule) 250 mg PO BIDWM [facility] Last Admin: 12/18/20 08:07 Dose: 250 mg Documented by: Senna (Senna 8.6 Mg Tablet) 8.6 - 17.2 mg PO DAILY PRN PRN Reason: Constipation Last Admin: 12/18/20 08:07 Dose: 8.6 mg Documented by: Sevelamer HCl (Sevelamer 800 Mg Tablet) 1,600 mg PO BID [facility] Last Admin: 12/18/20 08:07 Dose: 1,600 mg Documented by: Sodium Bicarbonate (Sodium Bicarbonate 650 Mg Tablet) 650 mg PO BID [facility] Last Admin: 12/18/20 08:08 Dose: 650 mg Documented by: Sodium Chloride (Sodium Chloride Flush 0.9% 10 Ml Syringe) 10 ml IVP PRN PRN PRN Reason: NEEDED PER PROVIDER ORDERS Last Admin: 12/18/20 08:55 Dose: 10 ml Documented by: Sodium Chloride (Sodium Chloride Flush 0.9% 10 Ml Syringe) 10 ml IVP 0100,0900,1700 [facility] Last Admin: 12/18/20 08:08 Dose: 10 ml Documented by: Acetaminophen [Tylenol] 500 mg PO BID 06/20/20 Aspirin [Aspirin EC] 81 mg PO DAILY 06/20/20 Sevelamer Carbonate [Renvela] 1,600 mg PO BID 06/20/20 Sitagliptin Phosphate [Januvia] 25 mg PO DAILY 06/20/20 Sodium Bicarbonate 650 mg PO BID 06/20/20 calcitrioL [Rocaltrol] 0.25 mcg PO SUTUTHSA 06/20/20 Ergocalciferol [Vitamin D2] 50,000 unit PO WE 07/09/20 Hydralazine HCl 150 mg PO BID 07/09/20 Amlodipine Besylate/Benazepril [Lotrel 10-40 mg Capsule] 1 each PO DAILY 12/15/20 Atorvastatin Calcium 40 mg PO QPM 12/15/20 Metoprolol Succinate [Toprol Xl] 100 mg PO DAILY 12/15/20 calcitrioL [Rocaltrol] 0.5 mcg PO MOWEFR 12/15/20 - Allergies Allergies/Adverse Reactions: Allergies Allergy/AdvReac Type Severity Reaction Status Date / Time No Known Drug Allergies Allergy Verified 11/28/20 11:58 Review of Systems - Constitutional Constitutional: reports: Fatigue, Weight loss. denies: Fever, Chills - Cardiovascular Cardiovascular: reports: Exertional dyspnea, Decr. exercise tolerance. denies: Chest pain - Respiratory Respiratory: reports: Cough (improved occasional dry), SOB with exertion, Other (currently on oxygen). denies: SOB at rest - Gastrointestinal Gastrointestinal: reports: Constipation (no BM x 4 days, feeling rectal pressure but is weak; up on bedpain x 2 hours per her report), Early satiety, Good appetite. denies: Diarrhea, Nausea, Reflux/heartburn - Genitourinary Genitourinary: reports: Other (on Wick catheter) - Musculoskeletal Musculoskeletal: reports: Muscle aches, Stiffness, Limited range of motion (right side;), Muscle weakness, Transfer issues (using wheelchair at [facility]; working with PT; plan to work with PT/OT at [facility]) - Integumentary Integumentary: reports: Dryness - Neurological Neurological: reports: General weakness, Numbness (right leg; painful to touch), Memory problems (feeling improved today; reports some blurring when waking from dreams last couple of months) - Psychiatric Psychiatric: reports: Depression (remains tearful when talking about st/lt goals), Anxiety (does not want to stress/worry her childrean) - Endocrine Endocrine: reports: Diabetes type 2 - Hematologic/Lymphatic Hematologic/Lymph: reports: Anemia (received 1 unit PRBCs with 9.4 hgb today; feeling better) - All Other Systems All Other Systems: reports: Reviewed and negative Physical Exam - Vital Signs Vital Signs: Vital Signs x48h Temp Pulse Resp BP Pulse Ox 12/18/20 08:55 71 171/69 H 12/18/20 08:00 36.6 C 62 18 163/61 H 93 - Physical Exam General Appearance: positive: No acute distress, Alert Eyes Bilateral: positive: Normal inspection ENT: positive: No signs of dehydration Neck: positive: Trachea midline Cardiovascular: positive: Regular rate & rhythm Respiratory: positive: Diminished in bases Abdomen: positive: Non-tender, Soft, Obese Skin: positive: Pallor, Dryness Extremities: positive: No pedal edema Neurologic/Psychiatric: positive: Mood/affect nml, Disoriented to time, Flat affect, Other (tearful through conversation) Palliative Care - POLST Patient has POLST: Yes POLST Status: DNR, Selective Treatment Pain: Pain improved, Location (right leg), Severity (4/10) Constipation: Yes, Unmanaged, Comment (discussed options; would like to try supp ository) - Palliative Care Discussion: Patient is challenged with trying to track over the last several days, does remember meeting palliative care yesterday, and reviewed our conversation. Patient does still understand the seriousness of her illness, she is thankful to have support test she feels sometimes people do not understand why she would not do dialysis. She does have a sister who is and does not feel like that would be quality of life for her. She does understand this impacts her prognosis, and this hospitalization is of concern as her numbers have been acutely changed as well is on top of her chronic disease. She is looking forward to returning back to [facility], she has been making some friends, has some ideas about further making connections. Her long-term goal would be to return back to her own home with support, though does recognize this is unrealistic at this point in time and is satisfied with the support she is getting at [facility]. Counseling provided regarding palliative care and the role as she continues to this journey, agreed follow-up on Tuesday or Tuesday when she is back at [facility]. We will get referral from outpatient PCP Dr. Hawkins. She would like to meet with palliative care and her son, he is off work on Fridays and Mondays, will make arrangements for outpatient family conference. Results - Lab Results Lab results reviewed: Yes Fish Bones: 12/18/20 08:25 12/18/20 08:25 Lab and Imaging Results: Lab Results x24hrs 12/18/20 12/18/20 12/18/20 Range/Units 11:11 08:25 08:25 WBC 7.5 (4.8-10.8) x10^3/uL RBC 3.08 L (4.20-5.40) 10^6/uL Hgb 9.4 L (12.0-16.0) g/dL Hct 28.9 L (37.0-47.0) % MCV 93.8 (81.0-99.0) fL MCH 30.5 (27.0-31.0) pg MCHC 32.5 (32.0-36.0) g/dL RDW 13.9 (12.0-15.0) % Plt Count 205 (130-450) 10^3/uL MPV 10.1 (7.9-10.8) fL Neut # (Auto) 5.4 (1.5-6.6) 10^3/uL Lymph # (Auto) 1.0 L (1.5-3.5) 10^3/uL Leake # (Auto) 0.9 (0.0-1.0) 10^3/uL Eos # (Auto) 0.2 (0.0-0.7) 10^3/uL Baso # (Auto) 0.0 (0.0-0.1) 10^3/uL Absolute Nucleated RBC 0.02 x10^3/uL Nucleated RBC % 0.3 /100WBC Sodium 138 (135-145) mmol/L Potassium 4.8 (3.5-5.0) mmol/L Chloride 105 (101-111) mmol/L Carbon Dioxide 20 L (21-32) mmol/L Anion Gap 13.0 (6-13) BUN 80 H* (6-20) mg/dL Creatinine 5.7 H (0.4-1.0) mg/dL Estimated GFR (MDRD) 7 L (>89) Glucose 168 H (70-100) mg/dL POC Whole Bld Glucose 195 H (70 - 100) mg/dL Calcium 9.5 (8.5-10.3) mg/dL Phosphorus (2.5-4.6) mg/dL Magnesium (1.7-2.8) mg/dL B-Natriuretic Peptide (5-100) pg/mL Blood Type Antibody Screen Crossmatch IS Only 12/18/20 12/18/20 12/18/20 Range/Units 07:29 04:35 04:35 WBC (4.8-10.8) x10^3/uL RBC (4.20-5.40) 10^6/uL Hgb (12.0-16.0) g/dL Hct (37.0-47.0) % MCV (81.0-99.0) fL MCH (27.0-31.0) pg MCHC (32.0-36.0) g/dL RDW (12.0-15.0) % Plt Count (130-450) 10^3/uL MPV (7.9-10.8) fL Neut # (Auto) (1.5-6.6) 10^3/uL Lymph # (Auto) (1.5-3.5) 10^3/uL Leake # (Auto) (0.0-1.0) 10^3/uL Eos # (Auto) (0.0-0.7) 10^3/uL Baso # (Auto) (0.0-0.1) 10^3/uL Absolute Nucleated RBC x10^3/uL Nucleated RBC % /100WBC Sodium (135-145) mmol/L Potassium (3.5-5.0) mmol/L Chloride (101-111) mmol/L Carbon Dioxide (21-32) mmol/L Anion Gap (6-13) BUN (6-20) mg/dL Creatinine (0.4-1.0) mg/dL Estimated GFR (MDRD) (>89) Glucose (70-100) mg/dL POC Whole Bld Glucose 152 H (70 - 100) mg/dL Calcium (8.5-10.3) mg/dL Phosphorus 6.9 H (2.5-4.6) mg/dL Magnesium 2.3 (1.7-2.8) mg/dL B-Natriuretic Peptide 1001 H (5-100) pg/mL Blood Type Antibody Screen Crossmatch IS Only 12/17/20 12/17/20 12/17/20 Range/Units 21:04 20:53 16:22 WBC (4.8-10.8) x10^3/uL RBC (4.20-5.40) 10^6/uL Hgb 8.7 L (12.0-16.0) g/dL Hct 26.6 L (37.0-47.0) % MCV (81.0-99.0) fL MCH (27.0-31.0) pg MCHC (32.0-36.0) g/dL RDW (12.0-15.0) % Plt Count (130-450) 10^3/uL MPV (7.9-10.8) fL Neut # (Auto) (1.5-6.6) 10^3/uL Lymph # (Auto) (1.5-3.5) 10^3/uL Leake # (Auto) (0.0-1.0) 10^3/uL Eos # (Auto) (0.0-0.7) 10^3/uL Baso # (Auto) (0.0-0.1) 10^3/uL Absolute Nucleated RBC x10^3/uL Nucleated RBC % /100WBC Sodium (135-145) mmol/L Potassium (3.5-5.0) mmol/L Chloride (101-111) mmol/L Carbon Dioxide (21-32) mmol/L Anion Gap (6-13) BUN (6-20) mg/dL Creatinine (0.4-1.0) mg/dL Estimated GFR (MDRD) (>89) Glucose (70-100) mg/dL POC Whole Bld Glucose 259 H 239 H (70 - 100) mg/dL Calcium (8.5-10.3) mg/dL Phosphorus (2.5-4.6) mg/dL Magnesium (1.7-2.8) mg/dL B-Natriuretic Peptide (5-100) pg/mL Blood Type Antibody Screen Crossmatch IS Only 12/17/20 Range/Units 11:53 WBC (4.8-10.8) x10^3/uL RBC (4.20-5.40) 10^6/uL Hgb (12.0-16.0) g/dL Hct (37.0-47.0) % MCV (81.0-99.0) fL MCH (27.0-31.0) pg MCHC (32.0-36.0) g/dL RDW (12.0-15.0) % Plt Count (130-450) 10^3/uL MPV (7.9-10.8) fL Neut # (Auto) (1.5-6.6) 10^3/uL Lymph # (Auto) (1.5-3.5) 10^3/uL Leake # (Auto) (0.0-1.0) 10^3/uL Eos # (Auto) (0.0-0.7) 10^3/uL Baso # (Auto) (0.0-0.1) 10^3/uL Absolute Nucleated RBC x10^3/uL Nucleated RBC % /100WBC Sodium (135-145) mmol/L Potassium (3.5-5.0) mmol/L Chloride (101-111) mmol/L Carbon Dioxide (21-32) mmol/L Anion Gap (6-13) BUN (6-20) mg/dL Creatinine (0.4-1.0) mg/dL Estimated GFR (MDRD) (>89) Glucose (70-100) mg/dL POC Whole Bld Glucose (70 - 100) mg/dL Calcium (8.5-10.3) mg/dL Phosphorus (2.5-4.6) mg/dL Magnesium (1.7-2.8) mg/dL B-Natriuretic Peptide (5-100) pg/mL Blood Type B POSITIVE Antibody Screen NEGATIVE Crossmatch IS Only See Detail Impression and Recommendations - Palliative Care Impression: This is a 70-year-old woman who presents with improving respiratory status, resolving pneumonia, concerns continue regarding her acute renal failure superimposed on her stage IV kidney disease not on chronic dialysis. Patient is feeling better today, with decreased symptom burden, continues with fatigue, mild dyspnea, she is able to participate in physical therapy today. She reports her pain in her right leg has improved some. Palliative care to provide support ongoing regarding transition back to outpatient setting. Recommendations/Counseling Done: 1. Acute on chronic renal failure stage V. We will continue to monitor, patient with increased BUN of 80 today, but continues stable 5.7 creatinine and GFR remains at 7. Patient is voiding, has diuresed with furosemide. This point in time she does not present with any further signs or symptoms of fluid overload. No lower extremity edema, wheezing resolved, shortness of breath improved. 2. Right leg pain. Does appear neuropathic in nature, unknown etiology. Patient is responding the gabapentin 100 mg, requested move at bedtime, to improve level of alertness, will continue to monitor does have some wiggle room to increase but is needing to be renally dosed. Patient is pleased with response. 3. Depression. Patient with multiple and traumatic losses, now with transition to new setting. She is able to verbalize loss of independence, concerned about the future, and impact on her kids. Did spend some time with life review and prioritizing what is most important to her. 4. Advanced care planning. Patient certainly is at high risk for sequela of further decline, will continue to monitor through palliative care and transition to hospice when appropriate unless patient has acute changes over the next 24 to 48 hours. 5. Constipation. Patient reports rectal discomfort and pressure, has been on the bedpan for 2 hours without results. Discussed options, would like to try Dulcolax suppository, this is communicated to hospitalist. 40 minutes with greater 50% of this done in counseling regarding goals of care, coordination of care with hospital team, continue to build rapport, and anticipatory guidance.
[2020-12-18] MEDS ORDERED: BISACODYL 10 MG SUPP PR PRN (16:57)
[2020-12-18] MEDS ORDERED: BISACODYL 10 MG SUPP PR ONE (17:00)
[2020-12-18] MEDS ORDERED: MAGNESIUM HYDROXIDE 2,400 MG/30 ML UDC PO ONE (17:16)
[2020-12-18] MEDS: SENNA 8.6 MG TABLET PO SCH (18:01)
[2020-12-18] MEDS: INSULIN GLARGINE 300 UNIT/3 ML PEN SUBQ SCH (21:26)
[2020-12-18] MEDS: ACETAMINOPHEN 325 MG TABLET PO PRN (21:28)
[2020-12-19] MEDS: SENNA 8.6 MG TABLET PO SCH ×3 (00:12→11:25)
[2020-12-19] MEDS: cefTRIAXone 1 GM in SODIUM CHLORIDE 0.9% MINIBAG 100 ML IV SCH (02:20)
[2020-12-19] MEDS: SODIUM CHLORIDE FLUSH 0.9% 10 ML SYRINGE IVP SCH ×3 (02:21→16:52)
[2020-12-19 04:49] LABS: BASOPHILS % (AUTO) 0.4 %; EOSINOPHILS # (AUTO) 0.3 10^3/uL (0.0-0.7); EOSINOPHILS % (AUTO) 4.7 %; HCT - HEMATOCRIT 28.4 % (37.0-47.0); HGB - HEMOGLOBIN 9.1 g/dL (12.0-16.0); LYMPHOCYTES # (AUTO) 0.8 10^3/uL (1.5-3.5); LYMPHOCYTES % (AUTO) 10.9 %; MEAN CORPUSCULAR HEMOGLOBIN 29.8 pg (27.0-31.0); MEAN CORPUSCULAR VOLUME 93.1 fL (81.0-99.0); MEAN PLATELET VOLUME 9.8 fL (7.9-10.8); MONOCYTES # (AUTO) 0.7 10^3/uL (0.0-1.0); MONOCYTES % (AUTO) 9.9 %; NEUTROPHILS # (AUTO) 5.1 10^3/uL (1.5-6.6); NEUTROPHILS % (AUTO) 71.8 %; NRBC ABSOLUTE COUNT (AUTO) 0.02 x10^3/uL; NUCLEATED RED BLOOD CELLS AUTO 0.3 /100WBC; PLT - PLATELET COUNT 208 10^3/uL (130-450); RED BLOOD COUNT 3.05 10^6/uL (4.20-5.40); RED CELL DISTRIBUTION WIDTH 13.8 % (12.0-15.0); WHITE BLOOD COUNT 7.1 x10^3/uL (4.8-10.8)
[2020-12-19 05:08] LABS: CALCIUM 9.4 mg/dL (8.5-10.3); CREATININE 5.6 mg/dL (0.4-1.0); MAGNESIUM 2.2 mg/dL (1.7-2.8); PHOSPHORUS 7.5 mg/dL (2.5-4.6); POTASSIUM 4.3 mmol/L (3.5-5.0)
[2020-12-19] MEDS: INSULIN ASPART 300 UNIT/3 ML PEN SUBQ SCH ×4 (07:30→21:43)
[2020-12-19] MEDS: SEVELAMER 800 MG TABLET PO SCH ×3 (07:59→21:53)
[2020-12-19] MEDS: SACCHAROMYCES BOULARDII 250 MG CAPSULE PO SCH ×2 (07:59→16:52)
[2020-12-19] MEDS ORDERED: FUROSEMIDE 40 MG/4 ML VIAL IVP SCH (09:00)
[2020-12-19] MEDS ORDERED: NON FORMULARY MED (Hydralazine Hcl [Hydralazine Hcl] 50 MG Tablet) PO SCH (09:15)
[2020-12-19] MEDS ORDERED: AMLODIPINE BESYLATE PO SCH (09:15)
[2020-12-19] MEDS ORDERED: [UNRECOGNIZED DRUG - OTHER] PO SCH (09:15)
[2020-12-19] MEDS ORDERED: BENAZEPRIL PO SCH (09:15)
[2020-12-19] MEDS: calcitrioL 0.25 MCG CAPSULE PO SCH (09:29)
[2020-12-19] MEDS: SODIUM BICARBONATE 650 MG TABLET PO SCH ×2 (09:37→21:53)
[2020-12-19] MEDS: HEPARIN 5,000 UNIT/ML VIAL SUBQ SCH ×2 (09:38→21:43)
[2020-12-19] MEDS: hydrALAZINE 25 MG TABLET PO SCH ×2 (09:44→21:53)
[2020-12-19] MEDS: polyethylene glycoL 3350 17 GM PACKET PO SCH (09:44)
--- NOTE | 2020-12-19 11:25 | PROVIDER PROGRESS NOTE ---
Subjective - Prog Note Date Prog Note Date: 12/19/20 - Subjective Pt reports feeling: Improved Subjective: pt feel fatigue but pt is alert and oriented plus 4. I called Dr Josue machinist outside, reported pt's conditions and discussed the care plan with him. Dr Lacey state pt does not necessary to followup with his office if pt continue decline to have dialysis, but if pt change her mind to have dialysis, then Pt can go to [facility] to start with dialysis and they will followup with pt. pt may be consulted with Palliative care, then followup with hospice care as needed. Every pt's life expectancy with renal failure without dialysis is different and difficult to be estimated. I discussed suggestion with pt and pt's YEYO Chance by phone, answered their questions, they understood. pt is on palliative care consulting now. Current Medications - Current Medications Current Medications: Active Medications Acetaminophen (Acetaminophen 325 Mg Tablet) 650 mg PO Q4HR PRN PRN Reason: Pain 1 to 4 Last Admin: 12/18/20 21:28 Dose: 650 mg Documented by: Albuterol (Albuterol Neb 2.5 Mg/3 Ml) 2.5 mg INH Q4HR PRN PRN Reason: Wheezing Last Admin: 12/16/20 07:32 Dose: 2.5 mg Documented by: Bisacodyl (Bisacodyl 10 Mg Supp) 10 mg PA DAILY PRN PRN Reason: Constipation Calcitriol (Calcitriol 0.25 Mcg Capsule) 0.5 mcg PO MoWeFr@0900 [facility] Last Admin: 12/19/20 09:29 Dose: 0.5 mcg Documented by: Calcitriol (Calcitriol 0.25 Mcg Capsule) 0.25 mcg PO SUTUTHSA [facility] Last Admin: 12/18/20 08:55 Dose: 0.25 mcg Documented by: Docusate Sodium (Docusate Sodium 250 Mg Capsule) 250 - 500 mg PO DAILY PRN PRN Reason: Constipation Last Admin: 12/18/20 08:07 Dose: 250 mg Documented by: Furosemide (Furosemide 40 Mg/4 Ml Vial) 40 mg IVP DAILY [facility] Last Admin: 12/19/20 09:34 Dose: 40 mg Documented by: Gabapentin (Gabapentin 100 Mg Capsule) 100 mg PO Q24H [facility] Heparin Sodium (Porcine) (Heparin 5,000 Unit/Ml Vial) 5,000 unit SUBQ BID [facility] Last Admin: 12/19/20 09:38 Dose: 5,000 unit Documented by: Hydralazine HCl (Hydralazine 25 Mg Tablet) 50 mg PO BID [facility] Last Admin: 12/19/20 09:44 Dose: 50 mg Documented by: Ceftriaxone Sodium 1 gm/ (Sodium Chloride) 100 mls @ 200 mls/hr IV Q24H [facility] Stop: 12/20/20 02:29 Last Infusion: 12/19/20 02:50 Dose: Infused Documented by: Insulin Aspart (Insulin Aspart 300 Unit/3 Ml Pen) 2 - 10 unit SUBQ 0800,1200,1700,2100 [facility]; Protocol Last Admin: 12/19/20 11:30 Dose: 2 unit Documented by: Insulin Glargine (Insulin Glargine 300 Unit/3 Ml Pen) 20 unit SUBQ QPM [facility] Last Admin: 12/18/20 21:26 Dose: 20 unit Documented by: Ondansetron HCl (Ondansetron Odt 4 Mg Tablet) 4 mg TL Q6HR PRN PRN Reason: Nausea / Vomiting Oxycodone HCl (Oxycodone 5 Mg Tablet) 5 mg PO Q4HR PRN PRN Reason: Pain 5 to 7 Polyethylene Glycol (Polyethylene Glycol 3350 17 Gm Packet) 17 gm PO DAILY [facility] Last Admin: 12/19/20 09:44 Dose: 17 gm Documented by: Saccharomyces Boulardii (Saccharomyces Boulardii 250 Mg Capsule) 250 mg PO BIDWM [facility] Last Admin: 12/19/20 07:59 Dose: 250 mg Documented by: Senna (Senna 8.6 Mg Tablet) 8.6 - 17.2 mg PO DAILY PRN PRN Reason: Constipation Last Admin: 12/18/20 08:07 Dose: 8.6 mg Documented by: Senna (Senna 8.6 Mg Tablet) 17.2 - 25.8 mg PO Q6H [facility] Stop: 12/19/20 12:01 Last Admin: 12/19/20 11:25 Dose: Not Given Documented by: Sevelamer HCl (Sevelamer 800 Mg Tablet) 1,600 mg PO TID [facility] Last Admin: 12/19/20 07:59 Dose: 1,600 mg Documented by: Sodium Bicarbonate (Sodium Bicarbonate 650 Mg Tablet) 650 mg PO BID [facility] Last Admin: 12/19/20 09:37 Dose: 650 mg Documented by: Sodium Chloride (Sodium Chloride Flush 0.9% 10 Ml Syringe) 10 ml IVP PRN PRN PRN Reason: NEEDED PER PROVIDER ORDERS Last Admin: 12/18/20 08:55 Dose: 10 ml Documented by: Sodium Chloride (Sodium Chloride Flush 0.9% 10 Ml Syringe) 10 ml IVP 0100,0900,1700 [facility] Last Admin: 12/19/20 09:36 Dose: 10 ml Documented by: Acetaminophen [Tylenol] 500 mg PO BID 06/20/20 Aspirin [Aspirin EC] 81 mg PO DAILY 06/20/20 Sevelamer Carbonate [Renvela] 1,600 mg PO BID 06/20/20 Sitagliptin Phosphate [Januvia] 25 mg PO DAILY 06/20/20 Sodium Bicarbonate 650 mg PO BID 06/20/20 calcitrioL [Rocaltrol] 0.25 mcg PO SUTUTHSA 06/20/20 Ergocalciferol [Vitamin D2] 50,000 unit PO WE 07/09/20 Hydralazine HCl 150 mg PO BID 07/09/20 Amlodipine Besylate/Benazepril [Lotrel 10-40 mg Capsule] 1 each PO DAILY 12/15/20 Atorvastatin Calcium 40 mg PO QPM 12/15/20 Metoprolol Succinate [Toprol Xl] 100 mg PO DAILY 12/15/20 calcitrioL [Rocaltrol] 0.5 mcg PO MOWEFR 12/15/20 Objective - Vital Signs/Intake & Output Vital Signs: Vital Signs x48h Temp Pulse Resp BP Pulse Ox 12/19/20 08:00 36.5 C 79 18 173/74 H 100 Intake & Output: Intake & Output 12/16/20 12/17/20 12/18/20 12/19/20 23:59 23:59 23:59 23:59 Intake Total 620 1430 1760 400 Output Total 1500 4200 2800 1100 Balance -880 -2770 -1040 -700 - Objective General Appearance: positive: No acute distress, Alert. negative: Lethargic Eyes Bilateral: positive: Normal inspection, PERRL, No lid inflammation ENT: positive: ENT inspection nml, No signs of dehydration. negative: Purulent nasal drainage Neck: positive: Nml inspection, Trachea midline. negative: Thyromegaly, Tracheal deviation Respiratory: positive: Chest non-tender, No respiratory distress, Rales. negative: Wheezes Cardiovascular: positive: Regular rate & rhythm, No murmur. negative: Tachycardia, Bradycardia, Systolic murmur, Diastolic murmur Peripheral Pulses: 2+ Radial (R), 2+ Radial (L) Abdomen: positive: Non-tender, Nml bowel sounds, No distention. negative: Tenderness Back: positive: Nml inspection Skin: positive: Color nml, Warm, Dry. negative: Cyanosis, Diaphoresis Extremities: positive: Non-tender, Nml appearance. negative: Calf tenderness Neurologic/Psychiatric: positive: Oriented x3, Motor nml, Sensation nml, Mood/affect nml. negative: Weakness, Sensory loss, Facial droop, Slurred/abnml speech, Depressed mood/affect - Lab Results Fish Bones: 12/19/20 04:25 12/19/20 04:25 Other Labs: Lab Results x24hrs 12/19/20 12/19/20 12/19/20 Range/Units 10:35 07:22 04:25 WBC 7.1 (4.8-10.8) x10^3/uL RBC 3.05 L (4.20-5.40) 10^6/uL Hgb 9.1 L (12.0-16.0) g/dL Hct 28.4 L (37.0-47.0) % MCV 93.1 (81.0-99.0) fL MCH 29.8 (27.0-31.0) pg MCHC 32.0 (32.0-36.0) g/dL RDW 13.8 (12.0-15.0) % Plt Count 208 (130-450) 10^3/uL MPV 9.8 (7.9-10.8) fL Neut # (Auto) 5.1 (1.5-6.6) 10^3/uL Lymph # (Auto) 0.8 L (1.5-3.5) 10^3/uL Ceiba # (Auto) 0.7 (0.0-1.0) 10^3/uL Eos # (Auto) 0.3 (0.0-0.7) 10^3/uL Baso # (Auto) 0.0 (0.0-0.1) 10^3/uL Absolute Nucleated RBC 0.02 x10^3/uL Nucleated RBC % 0.3 /100WBC Sodium (135-145) mmol/L Potassium (3.5-5.0) mmol/L Chloride (101-111) mmol/L Carbon Dioxide (21-32) mmol/L Anion Gap (6-13) BUN (6-20) mg/dL Creatinine (0.4-1.0) mg/dL Estimated GFR (MDRD) (>89) Glucose (70-100) mg/dL POC Whole Bld Glucose 154 H 97 (70 - 100) mg/dL Calcium (8.5-10.3) mg/dL Phosphorus (2.5-4.6) mg/dL Magnesium (1.7-2.8) mg/dL B-Natriuretic Peptide (5-100) pg/mL 12/19/20 12/19/20 12/18/20 Range/Units 04:25 04:25 20:58 WBC (4.8-10.8) x10^3/uL RBC (4.20-5.40) 10^6/uL Hgb (12.0-16.0) g/dL Hct (37.0-47.0) % MCV (81.0-99.0) fL MCH (27.0-31.0) pg MCHC (32.0-36.0) g/dL RDW (12.0-15.0) % Plt Count (130-450) 10^3/uL MPV (7.9-10.8) fL Neut # (Auto) (1.5-6.6) 10^3/uL Lymph # (Auto) (1.5-3.5) 10^3/uL Ceiba # (Auto) (0.0-1.0) 10^3/uL Eos # (Auto) (0.0-0.7) 10^3/uL Baso # (Auto) (0.0-0.1) 10^3/uL Absolute Nucleated RBC x10^3/uL Nucleated RBC % /100WBC Sodium 136 (135-145) mmol/L Potassium 4.3 (3.5-5.0) mmol/L Chloride 103 (101-111) mmol/L Carbon Dioxide 21 (21-32) mmol/L Anion Gap 12.0 (6-13) BUN 82 H* (6-20) mg/dL Creatinine 5.6 H (0.4-1.0) mg/dL Estimated GFR (MDRD) 7 L (>89) Glucose 111 H (70-100) mg/dL POC Whole Bld Glucose 270 H (70 - 100) mg/dL Calcium 9.4 (8.5-10.3) mg/dL Phosphorus 7.5 H (2.5-4.6) mg/dL Magnesium 2.2 (1.7-2.8) mg/dL B-Natriuretic Peptide 998 H (5-100) pg/mL 12/18/20 Range/Units 16:26 WBC (4.8-10.8) x10^3/uL RBC (4.20-5.40) 10^6/uL Hgb (12.0-16.0) g/dL Hct (37.0-47.0) % MCV (81.0-99.0) fL MCH (27.0-31.0) pg MCHC (32.0-36.0) g/dL RDW (12.0-15.0) % Plt Count (130-450) 10^3/uL MPV (7.9-10.8) fL Neut # (Auto) (1.5-6.6) 10^3/uL Lymph # (Auto) (1.5-3.5) 10^3/uL Ceiba # (Auto) (0.0-1.0) 10^3/uL Eos # (Auto) (0.0-0.7) 10^3/uL Baso # (Auto) (0.0-0.1) 10^3/uL Absolute Nucleated RBC x10^3/uL Nucleated RBC % /100WBC Sodium (135-145) mmol/L Potassium (3.5-5.0) mmol/L Chloride (101-111) mmol/L Carbon Dioxide (21-32) mmol/L Anion Gap (6-13) BUN (6-20) mg/dL Creatinine (0.4-1.0) mg/dL Estimated GFR (MDRD) (>89) Glucose (70-100) mg/dL POC Whole Bld Glucose 206 H (70 - 100) mg/dL Calcium (8.5-10.3) mg/dL Phosphorus (2.5-4.6) mg/dL Magnesium (1.7-2.8) mg/dL B-Natriuretic Peptide (5-100) pg/mL ABX Reporting Has patient been on IV antibiotics over the past 48 hours?: Yes Assessment/Plan - Problem List (1) Dyspnea Impression: 12/19 good progress. pt feel better breath. now pt need 2 liter of O2 to remain 95% O2 sats, continue antibiotics to treat pneumonia and lasix to treat pt's fluid overloaded. supplement of O2 as needed. 12/18 pt's BNP increased to over 1000. pt had one unit of blood transfusion. pt feel breath is good. but pt still need 3 liter of O2 to support her on 93% sats. we will continue IV of Lasix, continue supplement of O2 as needed. continue antibiotics treatment course for his PNA. 12/17 Patient reported she feel much better for her breathing. She appears no shortness breathing. RR is down to 20 and 95% sats on 3 liter of O2, it is improved. pt had 1500 cc urine on yesterday and 3600 cc on today after pt was given Lasix, and BNP is down to 700 from 1100 on yesterday. continue IV 80mg Lasix on today, then reduce to 40 mg IV on tomorrow. patient present shortness of breath today with RR 26/27. pt still need 4 liter of O2 support. CXR reveals persisted increased vascular bilateral pulmonary edema and effusion, and suspicion of superimposed pneumonia. pt had over 1000 BNP, ECHO reveals preserved EF but mild right heart abnormal pressure. pt has stage 5 renal failure and decline to have dialysis. we will give high dosage lasix to see if diuretics works for pt to reduce pulmonary edema and improve her respiratory status. pt's BP is tolerated to have diuretics now. (2)fluid overloaded 12/19 improved. BNP is slight/y reduced. pt feel better breathing. continue lasix 12/18Patient's ECHO show preserved EF but with RVSP 47 mmHG and mild abnormal right heart pressure. pt had significantly elevated BNP, clinic pt present pulmonary edema and fluid -overloaded. we will continue IV of Lasix, lab monitor (3) Pneumonia 12/19 improved. WBC became normal range. RR is down to 20 and pt has 95% sats on 2 liter of O2 Continue antibiotics continue Rocephin and azithromycin Florastor Daily white cell count (4) stage 5 chronic kidney disease, not on chronic dialysis 12/19 pt decline to have dialysis. pt had palliative care consult, then followup with hospice care as needed per machinist outside's recommendation. 12/18 pt has stage 5 renal failure, but pt declined to have dialysis. pt's BUN continue increased. pt clinic feel very tired. pt made urine after she had high dosage of Lasix. The prognosis is poor as I discussed with pt and pt's son. palliative care was consulted for pt. continue lab monitor. 12/17 stable, creatinine is 5.6, yesterday is 5.5. Continue clinical genetics laboratory chief, Continue intravenous IV lasix. and will reduced Lasix dosage on tomorrow. pt decline to have dialysis, she had stage 5 renal failure. she agree to have palliative care consult, based her diastolic heart failure and renal, her prognosis is poor. Plan: Avoid nephrotoxic agents Check echocardiogram Check bladder scan for urine output (5) Right leg parethesia and weakness 12/19 improved significantly, continue Gabapentin 12/17 Patient reported she feel better On right leg paresthesia, continue gabapentin. 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 pt report she had frequent fall, check right foot which has no acute fracture or dislocation. pt has no other focal neurology deficient, this is her chronic conditions, no consideration of TIA/Stroke at this point. order gabapentin (6) Acute respiratory failure with hypoxia Conclusion/Plan: 12/19 improved, pt has 95% sats on 2 liter of O2 without respiratory distress no w. continue treatment for Fluid overloaded and pneumonia 12/18 slight improved. pt need 3 liter of O2 to support her sats. pt did not take O2 at home before. will continue treatment of PNA and fluid-over loaded 12/17 Patient reported she feel much better for her breathing. it is improved. WBC became normal range. RR is down to 20 and pt has 95% sats on 3 liter of O2. Continue antibiotics azithromycin and Rocephin and IV lasix. pt still need 4 liter of O2 support. it is likely caused by her combination of pulmonary edema, fluid over-loaded plus pneumonia order lasix, continue antibiotics (7)hyperphosphatemia pt has elevated phosphorus elevel as expected from renal failure, increased renagel to tid per her phosphorus level (8) Type 2 diabetes mellitus, uncontrolled 12/19 slight reduce Novolog according to pt's glucose level, continue slide scale continue to have Lantus and sliding scale insulin. A1C is 7.5. Carb controlled diet. (9) Anemia in chronic kidney disease (CKD) Conclusion/Plan: 12/18 improved. HGB is 9.4 after one unit of blood transfusion per palliative care's recommendation. continue lab and vital monitor pt feel fatigue,HGB is 7.1, and Palliative care provide recommended 1 unit blood transfusion for patient. Currently hemoglobin 7.1. untill she is below 7 then consideration of transfusion of blood. She recently received her Aranesp, dextran on December 12. it is likely caused by her renal failure chronic disease. will have anemia study, and followup with the study.her prognosis is poor, and consult with palliative care. (10) Elevated troponin level not due myocardial infarction Conclusion/Plan: We have high-sensitivity troponins with high normal being 14. In this patient she is in chronic renal failure and I suspect that her shortness of breath, cardiac work-up resulted in enzyme leak. Her trending is "flat". As such I do not suspect NSTEMI (11) DVT prophylaxis Conclusion/Plan: Started on heparin.
[2020-12-19] MEDS: ACETAMINOPHEN 325 MG TABLET PO PRN (16:52)
[2020-12-19] MEDS: INSULIN GLARGINE 300 UNIT/3 ML PEN SUBQ SCH (21:43)
[2020-12-19] MEDS: GABAPENTIN 100 MG CAPSULE PO SCH (21:47)
[2020-12-20] MEDS: cefTRIAXone 1 GM in SODIUM CHLORIDE 0.9% MINIBAG 100 ML IV SCH (02:11)
[2020-12-20] MEDS: SODIUM CHLORIDE FLUSH 0.9% 10 ML SYRINGE IVP SCH ×4 (02:11→23:45)
[2020-12-20 05:45] LABS: BASOPHILS % (AUTO) 0.4 %; EOSINOPHILS # (AUTO) 0.4 10^3/uL (0.0-0.7); EOSINOPHILS % (AUTO) 4.7 %; HCT - HEMATOCRIT 27.4 % (37.0-47.0); HGB - HEMOGLOBIN 9.1 g/dL (12.0-16.0); LYMPHOCYTES # (AUTO) 0.9 10^3/uL (1.5-3.5); LYMPHOCYTES % (AUTO) 11.9 %; MEAN CORPUSCULAR HEMOGLOBIN 30.4 pg (27.0-31.0); MEAN CORPUSCULAR HGB CONC 33.2 g/dL (32.0-36.0); MEAN CORPUSCULAR VOLUME 91.6 fL (81.0-99.0); MEAN PLATELET VOLUME 9.2 fL (7.9-10.8); MONOCYTES # (AUTO) 0.8 10^3/uL (0.0-1.0); MONOCYTES % (AUTO) 10.9 %; NEUTROPHILS # (AUTO) 5.2 10^3/uL (1.5-6.6); NEUTROPHILS % (AUTO) 70.3 %; PLT - PLATELET COUNT 189 10^3/uL (130-450); RED BLOOD COUNT 2.99 10^6/uL (4.20-5.40); RED CELL DISTRIBUTION WIDTH 13.8 % (12.0-15.0); WHITE BLOOD COUNT 7.4 x10^3/uL (4.8-10.8)
[2020-12-20 05:58] LABS: CALCIUM 9.5 mg/dL (8.5-10.3); CREATININE 5.4 mg/dL (0.4-1.0); PHOSPHORUS 6.9 mg/dL (2.5-4.6); POTASSIUM 4.3 mmol/L (3.5-5.0)
[2020-12-20] MEDS: SEVELAMER 800 MG TABLET PO SCH ×3 (06:57→21:38)
[2020-12-20] MEDS ORDERED: hydrALAZINE 25 MG TABLET PO SCH (08:00)
[2020-12-20] MEDS: INSULIN ASPART 300 UNIT/3 ML PEN SUBQ SCH ×4 (08:00→21:48)
[2020-12-20] MEDS: SACCHAROMYCES BOULARDII 250 MG CAPSULE PO SCH ×2 (08:13→17:00)
[2020-12-20] MEDS: HEPARIN 5,000 UNIT/ML VIAL SUBQ SCH ×2 (08:43→21:37)
[2020-12-20] MEDS: polyethylene glycoL 3350 17 GM PACKET PO SCH ×2 (08:44→08:47)
[2020-12-20] MEDS: METOPROLOL SUCCINATE 50 MG TABLET PO SCH (08:44)
[2020-12-20] MEDS: FUROSEMIDE 40 MG TABLET PO SCH (08:44)
[2020-12-20] MEDS: calcitrioL 0.25 MCG CAPSULE PO SCH (08:55)
[2020-12-20] MEDS: SODIUM BICARBONATE 650 MG TABLET PO SCH ×2 (08:57→21:38)
--- NOTE | 2020-12-20 12:15 | PROVIDER PROGRESS NOTE ---
Assessment/Plan - Problem List (1) Pneumonia Qualifiers: Pneumonia type: due to unspecified organism Laterality: bilateral Lung location: lower lobe of lung Qualified Code(s): J18.9 - Pneumonia, unspecified organism Assessment/Plan: Improving, WBC became normal, RR is normal and pt has good O2 sats on room air as of yesterday. At presentation with hypoxia, she had altered mental status which has now improved We are continuing empiric Rocephin and azithromycin Continue Florastor (2) Fluid overloaded This is from her renal failure, not from CHF. She is diuresing with Lasix, since she still makes urine. On 12/18/20, patient's Echocardiogram showed preserved EF but with RVSP 47 mmHG and mild abnormal right heart pressure. Will change to p.o. Lasix today: Lasix 40 IV will be changed to 80 mg p.o. daily, in preparation for discharge. Our safety technician, Lisa, reached out to [facility] regarding discharging her back to them today and they have no RN available to evaluate her today for return or to accept her back today. Will attempt a discharge tomorrow, therefore will do oximetry exercise test tomorrow, to assess for possible new home oxygen order. (3) stage 5 chronic kidney disease, not on chronic dialysis BUN/creat has been slowly increasing. Is intermittently lethargic which may be from uremia. She has been offered hemodialysis by many providers and pt declines to have dialysis. Pt therefore had palliative care consult. She will eventually need referral to hospice care, as per continuous improvement analyst's recommendations (Fracisco Smith NP spoke to Dr PANKAJ Josue by phone yesterday). Her POLST states DNR and limited interventions. 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 pt report she had frequent falls when lived at home alone. The right foot had no acute fracture or dislocation. pt has no other focal jose rology deficient We ordered Gabapentin, which has helped alot, she said. (7) Hyperphosphatemia She has elevated phosphorus level as expected from renal failure, continue sincere gel treatment for phosphorus level (8) Type 2 diabetes mellitus, uncontrolled She was only on an oral agent before this admission and A1C was 7.5. Here she is getting Lantus and sliding scale insulin and a Carb controlled diet. Will need to determine if new Insulin sq dosing can be administered by RN when she returns to live at [facility] (9) Anemia in chronic kidney disease (CKD) This is caused by her chronic renal failure. Pt felt fatigue, and had HGB was 7.1, then was 9.4 after one unit of blood transfusion given, as per Palliative Care Provider recommendation. She recently received Aranesp, dextran on December 12. Follow H/H daily (10) Weakness This was the reason that she recently moved into [facility]. She was confused and weak at presentation here, probably from hypoxia and uremia. PT is ordered here. A Home Health referral was placed today for PT and OT when she returns back to [facility]. Our safety technician, Lisa, reached out to [facility] regarding discharging her back to them today and they have no RN available to evaluate her today for return or to accept her back today. Will attempt a discharge tomorrow (11) Elevated troponin level not due myocardial infarction Her high-sensitivity troponins with high normal being 14. In this patient she is in chronic renal failure and I suspect that her shortness of breath, cardiac work-up resulted in enzyme leak. Her trending is "flat". As such I do not suspect NSTEMI (12) Dyspnea Dyspnea has resolved. She is down to room air starting yesterday. We will assess for desaturations when she ambulates. On the day of discharge plan to do an oximetry walk test to see if she needs an order for home oxygen with diagnosis chronic renal failure (13) Acute respiratory failure with hypoxia Resolved with treatment of fluid overload and pneumonia - Current Meds Current Meds: Current Medications Generic Name Dose Route Start Last Admin Trade Name Freq PRN Reason Stop Dose Admin Acetaminophen 650 mg 12/15/20 03:21 12/19/20 16:52 Acetaminophen 325 Mg Tablet PO 650 mg Q4HR PRN Administration Pain 1 to 4 Albuterol 2.5 mg 12/15/20 03:23 12/16/20 07:32 Albuterol Neb 2.5 Mg/3 Ml INH 2.5 mg Q4HR PRN Administration Wheezing Calcitriol 0.5 mcg 12/17/20 11:00 12/19/20 09:29 Calcitriol 0.25 Mcg Capsule PO 0.5 mcg MoWeFr@0900 BRE Administration Calcitriol 0.25 mcg 12/18/20 09:00 12/20/20 08:55 Calcitriol 0.25 Mcg Capsule PO 0.25 mcg SUTUTHSA BRE Administration Docusate Sodium 250 - 500 mg 12/17/20 20:56 12/18/20 08:07 Docusate Sodium 250 Mg Capsule PO 250 mg DAILY PRN Administration Constipation Furosemide 80 mg 12/20/20 09:00 12/20/20 08:44 Furosemide 40 Mg Tablet PO 80 mg DAILY BRE Administration Gabapentin 100 mg 12/19/20 21:00 12/19/20 21:47 Gabapentin 100 Mg Capsule PO 100 mg Q24H BRE Administration Heparin Sodium (Porcine) 5,000 unit 12/17/20 09:00 12/20/20 08:43 Heparin 5,000 Unit/Ml Vial SUBQ 5,000 unit BID BRE Administration Hydralazine HCl 100 mg 12/20/20 08:00 12/20/20 08:44 Hydralazine 25 Mg Tablet PO 100 mg BID BRE Administration Insulin Aspart 2 - 10 unit 12/19/20 12:00 12/20/20 11:53 Insulin Aspart 300 Unit/3 Ml Pen SUBQ 4 unit 0800,1200,1700,2100 BRE Administration Protocol Insulin Glargine 20 unit 12/15/20 22:00 12/19/20 21:43 Insulin Glargine 300 Unit/3 Ml Pen SUBQ 20 unit QPM BRE Administration Metoprolol Succinate 100 mg 12/20/20 09:00 12/20/20 08:44 Metoprolol Succinate 50 Mg Tablet PO 100 mg DAILY BRE Administration Polyethylene Glycol 17 gm 12/17/20 09:00 12/20/20 08:47 Polyethylene Glycol 3350 17 Gm Packet PO Not Given DAILY BRE Saccharomyces Boulardii 250 mg 12/15/20 08:00 12/20/20 08:13 Saccharomyces Boulardii 250 Mg Capsule PO 250 mg BIDWM BRE Administration Senna 8.6 - 17.2 mg 12/17/20 20:56 12/18/20 08:07 Senna 8.6 Mg Tablet PO 8.6 mg DAILY PRN Administration Constipation Sevelamer HCl 1,600 mg 12/19/20 08:00 12/20/20 06:57 Sevelamer 800 Mg Tablet PO 1,600 mg TID BRE Administration Sodium Bicarbonate 650 mg 12/15/20 21:00 12/20/20 08:57 Sodium Bicarbonate 650 Mg Tablet PO 650 mg BID BRE Administration Sodium Chloride 10 ml 12/15/20 03:21 12/18/20 08:55 Sodium Chloride Flush 0.9% 10 Ml Syringe IVP 10 ml PRN PRN Administration NEEDED PER PROVIDER ORDERS Sodium Chloride 10 ml 12/15/20 09:00 12/20/20 08:55 Sodium Chloride Flush 0.9% 10 Ml Syringe IVP 10 ml 0100,0900,1700 BRE Administration - Lab Result Fish Bone Diagrams: 12/20/20 05:37 12/20/20 05:37 - Additional Planning My Orders: My Active Orders 12/20/20 Home Health Referral [CONS] Routine 12/20/20 07:54 Oxygen Desat. Study w/Exercise [RC] .ONCE 12/20/20 08:00 hydrALAZINE [Apresoline] 100 mg PO BID 12/20/20 09:00 Furosemide [Lasix] 80 mg PO DAILY Metoprolol Succinate [Toprol Xl] 100 mg PO DAILY 12/20/20 21:00 Atorvastatin [Lipitor] 40 mg PO QPM 12/24/20 09:00 Ergocalciferol [Vitamin D2] 50,000 unit PO WE Subjective - Subjective Patient Reports: Resting Comfortably, No Complaints Objective Vital Signs: Vital Signs - 24 hr 12/19/20 12/19/20 12/19/20 15:21 21:00 21:15 Temperature 36.5 C Heart Rate 81 Heart Rate [ 78 Brachial] Respiratory 18 18 Rate Blood Pressure [Left Brachial artery] Blood Pressure 111/90 H 177/78 H [Right Brachial artery] O2 Saturation 96 12/19/20 12/20/20 12/20/20 22:38 00:00 07:23 Temperature 36.7 C 36.3 C L Heart Rate Heart Rate [ 80 73 Brachial] Respiratory 16 22 Rate Blood Pressure 170/69 H [Left Brachial artery] Blood Pressure 161/77 H 170/68 H 172/70 H [Right Brachial artery] O2 Saturation 96 95 12/20/20 12/20/20 08:58 10:10 Temperature Heart Rate Heart Rate [ 66 Brachial] Respiratory Rate Blood Pressure 170/68 H 167/69 H [Left Brachial artery] Blood Pressure [Right Brachial artery] O2 Saturation Oxygen O2 Source Room air Oxygen Flow Rate 10 I&O (Last 24 Hrs): Intake and Output Totals x24h 12/18/20 12/19/20 12/20/20 23:59 23:59 23:59 Intake Total 1760 640 460 Output Total 2800 2600 1500 Balance -1040 -1960 -1040 General: Alert, Mild distress HEENT: Mucous membr. moist/pink, Other Neck: Supple, No JVD Neuro: Alert, Non Focal Cardiovascular: Regular rate Respiratory: No respiratory distress Abdomen: Soft Extremities: No edema - Results Results: Laboratory Results WBC 7.4 x10^3/uL (4.8-10.8) 12/20/20 05:37 RBC 2.99 10^6/uL (4.20-5.40) L 12/20/20 05:37 Hgb 9.1 g/dL (12.0-16.0) L 12/20/20 05:37 Hct 27.4 % (37.0-47.0) L 12/20/20 05:37 MCV 91.6 fL (81.0-99.0) 12/20/20 05:37 MCH 30.4 pg (27.0-31.0) 12/20/20 05:37 MCHC 33.2 g/dL (32.0-36.0) 12/20/20 05:37 RDW 13.8 % (12.0-15.0) 12/20/20 05:37 Plt Count 189 10^3/uL (130-450) 12/20/20 05:37 MPV 9.2 fL (7.9-10.8) 12/20/20 05:37 Reticulocyte % (Auto) 2.54 % (0.5-2.3) H 12/16/20 14:43 Neut # (Auto) 5.2 10^3/uL (1.5-6.6) 12/20/20 05:37 Lymph # (Auto) 0.9 10^3/uL (1.5-3.5) L 12/20/20 05:37 [place] # (Auto) 0.8 10^3/uL (0.0-1.0) 12/20/20 05:37 Eos # (Auto) 0.4 10^3/uL (0.0-0.7) 12/20/20 05:37 Baso # (Auto) 0.0 10^3/uL (0.0-0.1) 12/20/20 05:37 Absolute Nucleated RBC 0.00 x10^3/uL 12/20/20 05:37 Nucleated RBC % 0.0 /100WBC 12/20/20 05:37 Absolute Retic 0.065 10^6/uL (0.020-0.110) 12/16/20 14:43 PT 11.1 secs (9.9-12.6) 12/15/20 00:32 INR 1.0 (0.8-1.2) 12/15/20 00:32 D-Dimer 592.0 ng/mL (200.0-255.0) H 12/15/20 00:32 Bld Gas Analysis Time 0104 12/15/20 01:00 Sample Site RIGHT RADIAL 12/15/20 01:00 ABG pH 7.46 (7.35-7.45) H 12/15/20 01:00 ABG pCO2 27 mmHg (34-45) L 12/15/20 01:00 ABG pO2 82 mmHg (80-100) 12/15/20 01:00 ABG HCO3 18.6 mmol/L (22.0-26.0) L 12/15/20 01:00 ABG Total CO2 19.4 MMOL/L (21.0-29.0) L 12/15/20 01:00 ABG O2 Saturation 96 % (94-98) 12/15/20 01:00 ABG Base Excess -4.4 mmol/L (-2.0-3.0) L 12/15/20 01:00 Khadar Test POSITIVE 12/15/20 01:00 O2 Delivery Device SIMPLE MASK 12/15/20 01:00 FiO2 54.00 12/15/20 01:00 Sodium 140 mmol/L (135-145) 12/20/20 05:37 Potassium 4.3 mmol/L (3.5-5.0) 12/20/20 05:37 Chloride 107 mmol/L (101-111) 12/20/20 05:37 Carbon Dioxide 20 mmol/L (21-32) L 12/20/20 05:37 Anion Gap 13.0 (6-13) 12/20/20 05:37 BUN 80 mg/dL (6-20) H* 12/20/20 05:37 Creatinine 5.4 mg/dL (0.4-1.0) H 12/20/20 05:37 Estimated GFR (MDRD) 8 (>89) L 12/20/20 05:37 Glucose 195 mg/dL (70-100) H 12/20/20 05:37 POC Whole Bld Glucose 205 mg/dL (70 - 100) H 12/20/20 11:17 Estimat Average Glucose 169 mg/dL (70-100) H 12/15/20 07:03 Hemoglobin A1c % 7.5 % (4.27-6.07) H 12/15/20 07:03 Calcium 9.5 mg/dL (8.5-10.3) 12/20/20 05:37 Phosphorus 6.9 mg/dL (2.5-4.6) H 12/20/20 05:37 Magnesium 2.2 mg/dL (1.7-2.8) 12/19/20 04:25 Iron 34 ug/dL (28-170) 12/16/20 14:43 TIBC 255 ug/dL (250-450) 12/16/20 14:43 % Saturation 13 % (20-50) L 12/16/20 14:43 Transferrin 182 mg/dL (192-382) L 12/16/20 14:43 Ferritin 377.4 ng/mL (11.0-306.8) H 12/16/20 14:43 Total Bilirubin 0.9 mg/dL (0.2-1.0) 12/15/20 00:32 AST 15 IU/L (10-42) 12/15/20 00:32 ALT 11 IU/L (10-60) 12/15/20 00:32 Alkaline Phosphatase 71 IU/L (42-121) 12/15/20 00:32 Lactate Dehydrogenase 177 IU/L (91-225) 12/16/20 14:43 Troponin I High Sens 22.3 ng/L (2.3-14.8) H* 12/15/20 02:19 B-Natriuretic Peptide 1259 pg/mL (5-100) H 12/20/20 05:37 Total Protein 8.0 g/dL (6.7-8.2) 12/15/20 00:32 Albumin 3.6 g/dL (3.2-5.5) 12/15/20 00:32 Globulin 4.4 g/dL (2.1-4.2) H 12/15/20 00:32 Albumin/Globulin Ratio 0.8 (1.0-2.2) L 12/15/20 00:32 Lipase 46 U/L (22-51) 12/15/20 00:32 Vitamin B12 > 7000 pg/mL (180-914) H 12/16/20 14:43 Nasal Adenovirus (PCR) NOT DETECTED 12/15/20 01:20 Nasal B. parapertussis DNA (PCR) NOT DETECTED 12/15/20 01:20 Nasal Coronavir 229E PCR NOT DETECTED 12/15/20 01:20 Nasal Coronavir HKU1 PCR NOT DETECTED 12/15/20 01:20 Nasal Coronavir NL63 PCR NOT DETECTED 12/15/20 01:20 Nasal Coronavir OC43 PCR NOT DETECTED 12/15/20 01:20 Nasal Enterovir/Rhinovir PCR NOT DETECTED 12/15/20 01:20 Nasal Influenza B PCR NOT DETECTED 12/15/20 01:20 Nasal Influenza A PCR NOT DETECTED 12/15/20 01:20 Nasal Parainfluen 1 PCR NOT DETECTED 12/15/20 01:20 Nasal Parainfluen 2 PCR NOT DETECTED 12/15/20 01:20 Nasal Parainfluen 3 PCR NOT DETECTED 12/15/20 01:20 Nasal Parainfluen 4 PCR NOT DETECTED 12/15/20 01:20 Nasal RSV (PCR) NOT DETECTED 12/15/20 01:20 Nasal B.pertussis DNA PCR NOT DETECTED 12/15/20 01:20 Nasal C.pneumoniae (PCR) NOT DETECTED 12/15/20 01:20 Han Human Metapneumo PCR NOT DETECTED 12/15/20 01:20 Nasal M.pneumoniae (PCR) NOT DETECTED 12/15/20 01:20 Nasal SARS-CoV-2 (PCR) NOT DETECTED 12/15/20 01:20 Blood Type B POSITIVE 12/17/20 11:53 Blood Type Recheck B POSITIVE 12/17/20 05:25 Antibody Screen NEGATIVE 12/17/20 11:53 Crossmatch IS Only See Detail 12/17/20 11:53
[2020-12-20] MEDS ORDERED: ATORVASTATIN 40 MG TABLET PO SCH (21:00)
[2020-12-20] MEDS: hydrALAZINE 25 MG TABLET PO SCH (21:38)
[2020-12-20] MEDS: GABAPENTIN 100 MG CAPSULE PO SCH (21:43)
[2020-12-20] MEDS: INSULIN GLARGINE 300 UNIT/3 ML PEN SUBQ SCH (21:49)
[2020-12-20] MEDS: ACETAMINOPHEN 325 MG TABLET PO PRN (23:44)
[2020-12-21] MEDS: hydrALAZINE 25 MG TABLET PO SCH (05:39)
[2020-12-21] MEDS: SEVELAMER 800 MG TABLET PO SCH (05:39)
[2020-12-21 06:28] LABS: BASOPHILS % (AUTO) 0.3 %; EOSINOPHILS # (AUTO) 0.4 10^3/uL (0.0-0.7); EOSINOPHILS % (AUTO) 5.1 %; HCT - HEMATOCRIT 28.2 % (37.0-47.0); HGB - HEMOGLOBIN 9.4 g/dL (12.0-16.0); LYMPHOCYTES # (AUTO) 0.9 10^3/uL (1.5-3.5); LYMPHOCYTES % (AUTO) 11.3 %; MEAN CORPUSCULAR HEMOGLOBIN 30.6 pg (27.0-31.0); MEAN CORPUSCULAR HGB CONC 33.3 g/dL (32.0-36.0); MEAN CORPUSCULAR VOLUME 91.9 fL (81.0-99.0); MONOCYTES # (AUTO) 0.9 10^3/uL (0.0-1.0); MONOCYTES % (AUTO) 11.1 %; NEUTROPHILS # (AUTO) 5.5 10^3/uL (1.5-6.6); NEUTROPHILS % (AUTO) 70.5 %; PLT - PLATELET COUNT 194 10^3/uL (130-450); RED BLOOD COUNT 3.07 10^6/uL (4.20-5.40); RED CELL DISTRIBUTION WIDTH 13.7 % (12.0-15.0); WHITE BLOOD COUNT 7.9 x10^3/uL (4.8-10.8)
[2020-12-21 06:41] LABS: CALCIUM 9.7 mg/dL (8.5-10.3); CREATININE 5.1 mg/dL (0.4-1.0); PHOSPHORUS 7.2 mg/dL (2.5-4.6); POTASSIUM 4.6 mmol/L (3.5-5.0)
[2020-12-21] MEDS: INSULIN ASPART 300 UNIT/3 ML PEN SUBQ SCH (07:29)
[2020-12-21] MEDS: SACCHAROMYCES BOULARDII 250 MG CAPSULE PO SCH (08:37)
--- NOTE | 2020-12-21 09:29 | Discharge Plan ---
"Discharge Plan for SNF / T[facility] - Discharge Plan And Transition Orders Problem Reviewed?: Yes Disposition: 03 SNF DC/Xfer Condition: Stable Allergies and Adverse Reactions: Allergies Allergy/AdvReac Type Severity Reaction Status Date / Time No Known Drug Allergies Allergy Verified 11/28/20 11:58 Health Concerns: Patient admitted with shortness of breath due to pneumonia and volume overload from stage 5 chronic kidney disease. A course of antibiotics has been completed and a changed diuretic resulted in fluid removal and kidney function stabilization. She has declined dialysis. She is a diabetic, previously on oral agents only, but now needs to be on Insulin and have fingerstick checks and sliding scale Insulin coverage. She is now being followed by Palliative Care provider Melodie Moon NP. Plan of Treatment: Meds listed. Home Health PT and OT ordered. Care Goals: Improvement in symptoms and stabilization are the goals. Assessment: Written instructions and orders given to TANK/SNF, [facility]. - SNF / SHELTER Transition Orders Admit to (Facility): [facility] Medicare Certification Statement: I certify that Post Hospital half-way care is medically necessary on a continuing basis for any of the conditions for which she/he is receiving care during hospitalization. Notify PCP of admission and forward orders to primary provider for signature. Weight on admission and: Daily Call PCP immediately if weight increases by: 4 kg Other Notification Orders: Call PCP immediately if patient develops dyspnea, chest pain/tightness or edema. House Bowel Program: Yes Additional Bowel Program Orders: If no BM after 2 days, nurse may give M.O.M. 30ml PO PRN and/or ducolax Supp 1 [place] and/or CORTES 250mg P.O., and/or senna 1-2 tabs PO. On day 3 nurse may give repeat above order until residents constipation is resolved. Annual Influenza Vaccine (between Apr 01 and October 29): Yes Two-step PPD per [facility] [phone] or approved exception documents: Yes Treatments & Other Orders: Home Health PT and OT Medication Orders: PLEASE REFER TO THE DISCHARGE MEDICATION LIST. Insulin Orders?: Yes - Medications New Prescriptions: Docusate Sodium 250Mg Capsule [Colace 250Mg Capsule] 250 mg PO DAILY PRN #30 cap PRN Reason: Constipation Blood Sugar Diagnostic [Freestyle Lite Test Strip] 1 each ACHS #120 strip Blood-Glucose Meter [Glucometer] 1 each ACHS #1 each Hydralazine HCl 100 mg PO TID #180 tab Lancets 1 each ACHS #120 each Insulin Glargine [Lantus Solostar] 20 unit SUBQ QPM #1 pe Furosemide [Lasix] 80 mg PO DAILY #60 tablet Gabapentin [Neurontin] 100 mg PO DAILY #30 cap Insulin Aspart [NovoLOG] 3 - 11 unit SUBQ 0800,1200,1700,2100 #1 pe - Diet Type: Geriatric (Renal diet (60 gm protein/day) and Diabetic diet) Texture: Regular Liquids: Thin May have monthly special meal: Yes - Therapies | Activity Therapy: Evaluation | Treat if indicated: PT, OT Rehabilitation Potential: Maximize functional status, Maintain present ADL Functional Weight Bearing: Full Weight Assistance Devices: Walker Additional Instructions: See PCP and/or Elevated Motorman in 1-2 weeks for a hospital follow-up appointment. Insulin Orders - SNF Basal | Correction | Custom Orders: Diagnosis: Diabetes Initiate hypo and hyperglycemia protocols for BG <70 and BG >375. May check BG PRN for signs/symptoms of dysglycemia. Frequency of BG checks: [AC/HS] Basal Insulin: Lantus 100 units / ml inject subq as follows: 20 U sq qpm Correction Insulin: - Select the type of insulin below [id number] units /ml insulin inject subq per orders indicate below [] LOW DOSE [X] MODERATE DOSE [] MODERATE/HIGH DOSE [] HIGH DOSE GB UNITS GB UNITS GB UNITS GB UNITS 61-140 0 UNITS 61-140 0 UNITS 61-140 0 UNITS 61-140 0 UNITS 141-175 1 UNITS 141-175 1 UNITS 141-175 2 UNITS 141-175 3 UNITS 176-225 2 UNITS 176-225 3 UNITS 176-225 4 UNITS 176-225 5 UNITS 226-275 3 UNITS 226-275 5 UNITS 226-275 6 UNITS 226-275 7 UNITS 276-325 4 UNITS 276-325 7 UNITS 276-325 8 UNITS 276-325 9 UNITS 326-375 5 UNITS 326-375 9 UNITS 326-375 10 UNITS 326-375 11 UNITS >375 CONTACT MD >375 CONTACT MD >375 CONTACT MD >375 CONTACT MD"
[2020-12-21] MEDS: SODIUM BICARBONATE 650 MG TABLET PO SCH (09:52)
[2020-12-21] MEDS: FUROSEMIDE 40 MG TABLET PO SCH (09:52)
[2020-12-21] MEDS: METOPROLOL SUCCINATE 50 MG TABLET PO SCH (09:52)
[2020-12-21] MEDS: polyethylene glycoL 3350 17 GM PACKET PO SCH (09:53)
[2020-12-21] MEDS: SODIUM CHLORIDE FLUSH 0.9% 10 ML SYRINGE IVP SCH (09:53)
[2020-12-21] MEDS: HEPARIN 5,000 UNIT/ML VIAL SUBQ SCH (09:53)
[2020-12-21] MEDS: calcitrioL 0.25 MCG CAPSULE PO SCH (09:56)
--- NOTE | 2020-12-21 10:20 | DISCHARGE SUMMARY ---
Discharge Summary Admit Date: 12/15/20 Discharge Date: 12/21/20 Discharging Provider: Dr Denisa Saleem Primary Care Provider: Dr Chari Hawkins Code Status: Do Not Attempt Resuscitation Condition at Discharge: Stable Discharge Disposition: 03 SNF DC/Xfer - HPI History of Present Illness: From the admission H&P of Dr. Nitza Vinson: This is a 70-year-old female who has a history of chronic kidney disease stage V and is followed by nephrology, and anemia of chronic disease and is followed by oncology. She is on Aranesp, iron, B12. She presents with cough, weakness, shortness of breath for the last few days. She recently moved into [facility] in [place] due to chronic falls requiring EMS help, and right lower extremity weakness. Her oncologist did order an MRI and there is no focal lesion or spinal nerve compression causing the right lower leg weakness and she has been referred to neurology for evaluation. She was due to see them October 27 but canceled due to taxes having to be done. She does not have a history of lung disease. No history of asthma or emphysema. The cough is nonproductive. No hemoptysis. No one else around her is sick. She did receive her Covid vaccine. Most of her history is from the emergency room physicians as the patient is a poor historian with dyspnea. When EMS went to her assisted living facility to pick her up her O2 sats were 78% on room air. She was put on a nonrebreather mask, and DuoNeb. Wheezing was noted. She was evaluated by Dr. Soto in the emergency room. Temperature is 36.8, heart rate was 121, blood pressure 138/87 with a respiratory rate of 35 with moderate respiratory distress. She was unable to complete full sentences without taking a breath in the middle. Decreased air movement bilaterally with fine wheezing. Room air saturation was 78%. Chest x-ray shows multifocal consolidation throughout her right lung and consolidation in the left lower lo be. Initial troponin was 23, and repeat troponin is 22. Her BNP is elevated at 1339. White cell count is 12, hemoglobin 9.1. After treatment for pneumonia with antibiotics, nebulizers, steroids, and oxygen the patient is feeling better. She is less tachypneic. 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 She does not want dialysis. Patient is now admitted to the inpatient setting for treatment of bilateral pneumonia in a patient with chronic renal failure. - HOSPITAL COURSE Hospital Course: (1) Acute respiratory failure with hypoxia This was felt to be due to fluid overload and pneumonia. With treatment of both, her supplemental oxygen was weaned to off, and she did not require a home O2 order at discharge, based on an oximetry walk test. (2) Pneumonia She had bilateral lower lobe infiltrates, hypoxia, and altered mental status at admission. She was treated with empiric Rocephin and azithromycin, and Florastor probiotic. Her WBC became normal, and dyspnea, desaturation and confusion all resolved. She completed a course of antibiotics. Blood cultures were negative to date, there was no sputum culture. (3) Fluid overloaded This was felt to be due her renal failure, not from CHF. On 12/18/20, she had an Echocardiogram that showed preserved EF but with RVSP 47 mmHG (mild elevated right heart pressure). She was diuresing adequately with Lasix iv that was eventually transitioned to oral Lasix and she was discharged on a different Lasix dose. (4) stage 5 chronic kidney disease, not on chronic dialysis BUN/creat increased slightly and we felt she was intermittently lethargic from uremia. She has been offered hemodialysis by many providers and pt repeatedly declined to have dialysis. She, therefore, had Palliative Care consult and will be followed by Melodie Moon NP, and she will be transitioned into Hospice in the future. At discharge, her BUN/creat had stabilized and slightly improved. (5) HTN Patient was already on Hydralazine orally before this admission, consistent with advanced CKD. We continued her BP meds kieran needed to increase her Hydralazine dose from 50 twice daily to 100 twice daily then 3 times daily, since she ran 170s systolic frequently. (6) Right leg paresthesia and weakness Pt reported this was a chronic problem, it is likely caused by neuropathy from her renal failure. She has had frequent falls when she lived at home alone, and had recently moved into [facility]. The right foot had no acute fracture or dislocation and there was no other focal neurology deficient. We ordered Gabapentin, which helped alot, she said. (7) Vit D deficiency We continued her Rocaltrol, as commonly used in renal patients. (8) Hyperphosphatemia She has elevated phosphorus levels as expected from renal failure. We continued Renagel treatment for phosphorus levels. (9) Type 2 diabetes mellitus, uncontrolled She was only on an oral agent before this admission and her A1c was 7.5. Here she was getting Lantus and sliding scale Reg insulin coverage and was getting a carb-controlled diet. At discharge, new Insulin sq dosing was ordered to be administered when she returns to live at [facility], plus new prescription for a glucometer, lancets, strips and pen needles were ordered. (10) Anemia in chronic kidney disease (CKD) Pt felt fatigue and had a Hgb of 7.1, which ion to 9.4 after one unit of blood transfused, as per Palliative Care Provider recommendation. She recently received Aranespand and Dextran on December 12. (11) Weakness This was the reason that she recently moved into [facility]. She was confused and weak at presentation here, probably from hypoxia and uremia. She eventually worked with PT and a Home Health referral was placed for PT and OT, for when she returns back to her [facility]. (12) Elevated troponin level not due myocardial infarction Her high-sensitivity troponins were 14 but were flat. In this patient, with elevation from chronic renal failure, we did not suspect NSTEMI. - ALLERGIES Allergies/Adverse Reactions: Allergies Allergy/AdvReac Type Severity Reaction Status Date / Time No Known Drug Allergies Allergy Verified 12/25/20 05:42 - MEDICATIONS Home Medications: Ambulatory Orders Medication Instructions Recorded Confirmed Aspirin [Aspirin EC] 81 mg PO DAILY 06/20/20 12/25/20 Sevelamer Carbonate [Renvela] 1,600 mg PO BID 06/20/20 12/24/20 Sodium Bicarbonate 650 mg PO BID 06/20/20 12/24/20 calcitrioL [Rocaltrol] 0.25 mcg PO SUTUTHSA 06/20/20 12/25/20 Ergocalciferol [Vitamin D2] 50,000 unit PO WE 07/09/20 12/25/20 Amlodipine Besylate/Benazepril 1 each PO DAILY 12/15/20 12/25/20 [Lotrel 10-40 mg Capsule] Atorvastatin Calcium 40 mg PO QPM 12/15/20 12/25/20 Metoprolol Succinate [Toprol Xl] 100 mg PO DAILY 12/15/20 12/25/20 calcitrioL [Rocaltrol] 0.5 mcg PO MOWEFR 12/15/20 12/25/20 Acetaminophen [Tylenol] 650 mg PO Q4HR PRN tablet 12/21/20 12/25/20 Docusate Sodium 250Mg Capsule 250 mg PO DAILY PRN #30 cap 12/21/20 12/25/20 [Colace 250Mg Capsule] Hydralazine HCl 100 mg PO TID #180 tab 12/21/20 12/25/20 Insulin Aspart [NovoLOG] 3 - 11 unit SUBQ 12/21/20 12/25/20 0800,1200,1700,2100 #1 pe Furosemide [Lasix] 40 mg PO DAILY 12/24/20 12/25/20 Gabapentin [Neurontin] 100 mg PO QPM 12/24/20 12/25/20 Insulin Glargine [Lantus Solostar] 25 unit SUBQ QPM 12/24/20 12/25/20 - PHYSICAL EXAM AT DISCHARGE General Appearance: positive: No acute distress, Alert Eyes Bilateral: positive: Normal inspection, EOMI ENT: positive: ENT inspection nml, No signs of dehydration Neck: positive: Nml inspection, No JVD Respiratory: positive: No respiratory distress, Breath sounds nml Cardiovascular: positive: Regular rate & rhythm Abdomen: positive: Non-tender, No distention Skin: positive: Warm, Dry, Other (Tanned vs dark skin) Extremities: positive: No pedal edema Neurologic/Psychiatric: positive: Oriented x3 (Non-focal) - LABS Result Diagrams: 12/21/20 06:20 12/21/20 06:20 - DIAGNOSTIC IMAGING Diagnostic Imaging Results: Final report reviewed - FOLLOW UP Follow Up: See PCP in 1-2 weeks for a hospital follow-up appointment. - TIME SPENT Time Spent in Discharge (Minutes): 60
[2020-12-21 11:08] VITALS: BP 166/63
[2020-12-24] MEDS ORDERED: ERGOCALCIFEROL 50,000 UNIT CAPSULE PO SCH (09:00)
== END 2020-12-21 11:40 | DRG 189 ==
LOC: EDUNIT# → ED 00:09 → MS2 03:21
PROVIDERS: ADMIT Specialist; ATTEND Internal Medicine
PROC: 30233N1 Transfusion of Nonautologous Red Blood Cells into Peripheral Vein, Percutaneous Approach (ICD-10-PCS; principal; 2020-12-17)
DX: R06.03 Acute respiratory distress (principal); J96.01 Acute respiratory failure with hypoxia; R09.02 Hypoxemia; N18.4 Chronic kidney disease, stage 4 (severe); J18.9 Pneumonia, unspecified organism; Z20.822 Contact with and (suspected) exposure to COVID-19; N18.5 Chronic kidney disease, stage 5; N17.9 Acute kidney failure, unspecified; I13.2 Hypertensive heart and chronic kidney disease with heart failure and with stage 5 chronic kidney disease, or end stage renal disease; I50.30 Unspecified diastolic (congestive) heart failure; E87.79 Other fluid overload; E11.22 Type 2 diabetes mellitus with diabetic chronic kidney disease; E11.65 Type 2 diabetes mellitus with hyperglycemia; Z79.4 Long term (current) use of insulin; J98.01 Acute bronchospasm; E86.0 Dehydration; D63.1 Anemia in chronic kidney disease; R77.8 Other specified abnormalities of plasma proteins; R53.1 Weakness; Z99.3 Dependence on wheelchair; R20.0 Anesthesia of skin; Z91.81 History of falling; Z66 Do not resuscitate; R53.83 Other fatigue; E11.42 Type 2 diabetes mellitus with diabetic polyneuropathy; F32.9 Major depressive disorder, single episode, unspecified; Z51.5 Encounter for palliative care; E55.9 Vitamin D deficiency, unspecified; R63.0 Anorexia
CPT/HCPCS: 36415; 36600; 71045; 73502; 73552; 73630; 80048; 80053; 82607; 82728; 82803; 83036; 83540; 83615; 83690; 83735; 83880; 84100; 84466; 84484; 85014; 85018; 85025; 85045; 85379; 85610; 86850; 86900; 86901; 86920; 87040; 87631; 93005; 93306; 93970; 94640; 96365; 96366; 96368; 97162; 97166; 97530; 99223; 99233; 99291; A9270; J1650; J1815; P9016; 0202U; 82310

== ENCOUNTER 2020-12-23 15:15 | Outpatient (CLI) | payer MEDICARE, OTHER ==
--- NOTE | 2020-12-23 17:33 | CONSULTATION NOTE ---
Palliative Care Follow Up - Referral Referring Provider: Dr. Chari Hawkins Time of Visit: [id number] Referral setting: Assisted living Referral Reason: CKD Stage V/FTT/RLE neuropathy - Information Sources Records reviewed: RN notes reviewed, Previous records reviewed History/Review of Systems obtained from: Patient Exam limitations: No limitations - History of Present Illness Update Brief HPI Update: This is a 70-year-old woman who has recently discharged on 12/21/2020 for diagnosis of pneumonia, she did have some further complications related to her stage V chronic kidney disease not on dialysis, with fluid overload. She does not have a diagnosis of CHF, she does have known preserved ejection fraction and only mild abnormal right heart pressure. The other complicating factor when she had uncontrolled diabetes type 2, unfortunately she was transitioned to Lantus and sliding scale, she is not very happy with the frequent fingersticks, agreed we would try and stabilize and look at decreasing her sliding scale. She has been followed by hematology for her anemia of chronic renal failure, her hemoglobin did float down, she received 1 unit of blood for a hemoglobin of 7.1, with increase to 9.4 after transfusion. On admit she was also experiencing acute respiratory failure with hypoxia, this is since resolved. She also had mental confusion this is improved as well. Patient's other chronic issue has been her right lower extremity pain and neuropathy, it is only on her right, has improved some, but continues with severe weakness, concern for falls, and is currently needing 2-3 person assist for transfers in the facility. On arrival, patient is in bed, she had been up most of the morning, she reports it is uncomfortable on her tailbone, she does have a recliner in her room, as well as a hospital bed. The physical therapist from [facility] is there as well, recommendation for commode at least for nighttime toileting. She does complain of fatigue, she reports her appetite has been good, she does have some high anxiety related to needing assistance with toileting, and needing to wait for several staff together for her transfers. She reports she did have a regular BM today, she reports her confusion is better, she does present with some persistent tearfulness and depression, discussion with [place] PT, he is going to request [employer] for support and counseling. Patient also presents with dizziness, her blood pressure is 108/62 which is somewhat low for her, and dizziness mostly with position change on examination. Past Medical History: Hypertension, severe right lower extremity weakness, right shoulder humerus fracture, nonunion, osteoarthritis, depression, type 2 diabetes, Social History - Living Situation Living arrangement: Assisted living Living Situation: Alone Support System: Patient is newly at [facility], she has not really been able to settle in she did have acute illness and and hospitalization. She had been living independently in a house, though with more frequent falls and less able to meet her care needs. [place] and had been checking on her, as well as the daughter who is coming to visit in December. 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 Medications/Allergies - Medications Home Medications: Ambulatory Orders Medication Instructions Recorded Confirmed Aspirin [Aspirin EC] 81 mg PO DAILY 06/20/20 12/24/20 Sevelamer Carbonate [Renvela] 1,600 mg PO BID 06/20/20 12/24/20 Sodium Bicarbonate 650 mg PO BID 06/20/20 12/24/20 calcitrioL [Rocaltrol] 0.25 mcg PO SUTUTHSA 06/20/20 12/24/20 Ergocalciferol [Vitamin D2] 50,000 unit PO WE 07/09/20 12/24/20 Amlodipine Besylate/Benazepril 1 each PO DAILY 12/15/20 12/24/20 [Lotrel 10-40 mg Capsule] Atorvastatin Calcium 40 mg PO QPM 12/15/20 12/24/20 Metoprolol Succinate [Toprol Xl] 100 mg PO DAILY 12/15/20 12/24/20 calcitrioL [Rocaltrol] 0.5 mcg PO MOWEFR 12/15/20 12/24/20 Acetaminophen [Tylenol] 650 mg PO Q4HR PRN tablet 12/21/20 12/24/20 Docusate Sodium 250Mg Capsule 250 mg PO DAILY PRN #30 cap 12/21/20 12/24/20 [Colace 250Mg Capsule] Hydralazine HCl 100 mg PO TID #180 tab 12/21/20 12/24/20 Insulin Aspart [NovoLOG] 3 - 11 unit SUBQ 12/21/20 12/24/20 0800,1200,1700,2100 #1 pe Furosemide [Lasix] 40 mg PO DAILY 12/24/20 12/24/20 Gabapentin [Neurontin] 100 mg PO QPM 12/24/20 12/24/20 Insulin Glargine [Lantus Solostar] 25 unit SUBQ QPM 12/24/20 12/24/20 - Allergies Allergies/Adverse Reactions: Allergies Allergy/AdvReac Type Severity Reaction Status Date / Time No Known Drug Allergies Allergy Verified 11/28/20 11:58 Review of Systems - Constitutional Constitutional: reports: Fatigue (persistent), Weight loss. denies: Fever, Chills - Eyes Eyes: reports: Blurred vision, Vision loss - Cardiovascular Cardiovascular: reports: Exertional dyspnea, Decr. exercise tolerance. denies: Chest pain, Edema - Respiratory Respiratory: reports: Cough (improved occasional dry), SOB with exertion. denies: SOB at rest - Gastrointestinal Gastrointestinal: reports: Early satiety, Good appetite. denies: Constipation, Diarrhea, Nausea, Reflux/heartburn - Genitourinary Genitourinary: reports: Incontinence (mostly if cannot get to bathroom timely) - Musculoskeletal Musculoskeletal: reports: Muscle aches, Stiffness, Limited range of motion (ri ght side;), Muscle weakness, Transfer issues (using wheelchair at [facility]; working with PT; plan to work with PT/OT at [facility]) - Integumentary Integumentary: reports: Dryness - Neurological Neurological: reports: General weakness, Numbness (right leg; painful to touch), Memory problems (feeling improved today; reports some blurring when waking from dreams last couple of months) - Psychiatric Psychiatric: reports: Depression (remains tearful when talking about st/lt goals), Anxiety (does not want to stress/worry her childrean) - Endocrine Endocrine: reports: Diabetes type 2 (have been running mostly greater than 200 and needing s/s) - Hematologic/Lymphatic Hematologic/Lymph: reports: Anemia (received 1 unit PRBCs with 9.4 hgb 12/21) - All Other Systems All Other Systems: reports: Reviewed and negative Physical Exam - Vital Signs Temperature: 97.6 C Pulse Rate: 96 Respiratory Rate: 18 O2 Saturation: 96 Blood Pressure: 108/62 - Physical Exam General Appearance: positive: Alert, Mild distress Eyes Bilateral: positive: Normal inspection ENT: positive: No signs of dehydration Neck: positive: Trachea midline Cardiovascular: positive: Regular rate & rhythm Respiratory: positive: Diminished in bases. negative: Wheezes Abdomen: positive: Non-tender, Soft, Obese Skin: positive: Pallor, Dryness Extremities: positive: No pedal edema Neurologic/Psychiatric: positive: Mood/affect nml, Flat affect, Other (tearful through conversation) Palliative Care - POLST Patient has POLST: Yes POLST Status: DNR, Selective Treatment Pain: Pain improved, Location (RLE), Severity (2/10 at rest; pain worsens with touch and weight bearing) Tiredness/Fatigue: Moderate (4-6) Drowsiness/Sedation: Mild (1-3) Nausea: None Anorexia: None Dyspnea: Mild (1-3) Depression: Moderate (4-6) Anxiety: Moderate (4-6) Feelings of wellbeing/Perceived Quality of Life: Fair, Acceptable, Improved Sleep: Sleeps well Constipation: Yes, Intermittent constipation Performance Status: Patient has mostly been wheelchair-bound, does need max assist for transfers to her wheelchair, goal is for her to be able to pivot transfer using her walker. Physical therapy will be working with her, they also have OT coming. Patient is able to self feed. Patient has had steady functional decline over the last 6 months. - Palliative Care Discussion: Patient is happy to be back at the facility, feels much more comfortable and safe. Discussed the "what next". She is still wanting to make sure and very clear she does not want dialysis as talking to her about a referral to a second grade teacher. We discussed the goal would be to maximize her medications and help us follow her with her labs. She is feeling somewhat overwhelmed, but is f eeling better overall. Patient does have a POLST, with DN AR and limited interventions, her short-term goals are to be able to acclimate to her new environment, is hoping to have a chance to improve her strength, and increase her independence. She does remain a high fall risk and is quite dependent on the staff. Did discuss with her son, my findings yesterday. Dr. Hawkins is out of town, will make adjustments and partner with her when she is back. Discussed referral to Dr. Swanson for nephrology, his understanding was there was a pending referral. He is unclear why she is so against dialysis, when explored further with him he has very little understanding, when discussed patient would need surgery for shunt, and all that was involved, he did verbalize better understanding as she is not wanted anything very aggressive or to prolong her suffering. He is available on Fridays, could help her facilitate a telehealth visit with her iPad. We will see if this is an option. Results - Lab Results Lab results reviewed: Yes Impression and Recommendations - Palliative Care Impression: This is a 70-year-old woman with stage V chronic kidney disease not on dialysis, recently discharged from [facility] for treatment of pneumonia. She has recently transition to assisted living, [facility], and presents with fairly high symptom burden. She has had functional decline, mild cognitive decline, and newly transition to insulin for management of her diabetes. Palliative care providing support for pain and symptom management and anticipatory guidance as well as coordination of care. Recommendations/Counseling Done: 1. Diabetes type 2. Patient newly on insulin, had been discharged on Lantus 20 units at bedtime, has needed correction for most meals. We will go ahead and increase to Lantus 25 units. Patient very much would like to transition to no meal correction. Did discuss would need to wait for a couple weeks until we find her new normal with both her recovery from her pneumonia, new eating patterns, and adjustment with medication changes. 2. Depression. Patient is quite tearful, has experienced significant changes, and now transition to a new setting. She does understand the seriousness of her illness, is hoping both for quality and quantity of time, though recognizes both may be limited. Patient may benefit from an antidepressant, will see how patient adjust as well as [facility] will be providing support with [facility]. 3. CKD stage V, not on dialysis. Had been recommended patient follow-up with nephrology, spoke with both patient and son no current pending referrals. Dr. Hawkins out of town, did follow-up with Dr. HUSSEIN MARCIAL, does come to the [facility] monthly but no opening till January. In speaking with the office [phone], he would be able to accommodate at telehealth visit. Son would be available on Fridays to help facilitate an iPad and provide support. Patient with new medication changes, would benefit from further titration and supervision of both labs and medications. 4. Anemia of renal disease. Patient does see overhauler bus truck, due for Tuesday visit, patient is too weak at this point in time to be able to come in for visit. Did send message, patient did receive 1 unit of packed red blood cells, with request to confirm when would like to see patient again. 5. Right lower extremity pain. This does appear neuropathic in nature, though of concern only in one limb. She is responding to low-dose gabapentin 100 mg, feels this is improved her overall discomfort. Patient could have it titrated, at this point would like to wait and see how she settles in, will continue to monitor. 6. Hypotension. Patient was some symptomatic dizziness, had been discharged on 80 mg of furosemide, patient without any crackles nor signs or symptoms of fluid overload no lower extremity edema. She did have overload related to IV fluids in the hospital. We will decrease her furosemide to 40 mg, did follow-up with PCP office has been on 20 mg in the past so this is not on her original medication list.Requested staff do daily weights as well as check blood pressure daily and send them to me weekly 7. Advanced care planning. Patient continues to be clear on her long-term goals which is no dialysis, short-term goals are to improve her overall sense of wellbeing, improve her independence, and settle into her new setting. 60 minutes with greater than 50% of this done in counseling, coordination of care with PCP out of office, overhauler bus truck/oncology office, as well as facilitate referral for nephrology. Coordination of care with [facility] staff and [facility] health.
== END 2020-12-23 15:16 | disposition home or self-care (01) ==
LOC: PC 15:15
PROVIDERS: ATTEND Nurse Practitioner Adult Health
DX: Z51.5 Encounter for palliative care (principal); E11.22 Type 2 diabetes mellitus with diabetic chronic kidney disease; E11.40 Type 2 diabetes mellitus with diabetic neuropathy, unspecified; I12.0 Hypertensive chronic kidney disease with stage 5 chronic kidney disease or end stage renal disease; N18.5 Chronic kidney disease, stage 5; F32.9 Major depressive disorder, single episode, unspecified; D63.1 Anemia in chronic kidney disease; I95.9 Hypotension, unspecified; Z79.4 Long term (current) use of insulin; Z91.81 History of falling; Z66 Do not resuscitate

== ENCOUNTER 2020-12-25 05:13 | Outpatient (CLI) | payer MEDICARE, OTHER | END 2020-12-25 05:14 | disposition critical access hospital (66) | LOC: EMS 05:13 | DX: M79.661 Pain in right lower leg (principal) | CPT/HCPCS: A0425; A0429 ==

== ENCOUNTER 2020-12-25 05:34 | Emergency (ER) | payer MEDICARE, OTHER ==
--- OUTSIDE RECORDS SUMMARY | 2020-12-25 05:41 | EXTERNAL MEDICAL SUMMARY RPT | Continuity of Care Document ---
:1950 Demographics Phone Unavailable Preferred Language Unknown Marital Status Unknown Christian Affiliation Unknown Race Unknown Ethnic Group Unknown Author Organization [facility] Address [address] [phone] Phone Allergies Encounters Medications Problems date description facility [id number] Chronic kidney disease, stage 3 [facility] [employer] unspecified Results
--- NOTE | 2020-12-25 06:52 | ED Physician Documentation ---
PD HPI LOWER EXT INJURY - Stated complaint Stated Complaint: FALL/LEG PX - Chief complaint Chief Complaint: Trauma Ext - History obtained from History obtained from: Patient - History of Present Illness PD HPI LOW EXT INJURY LOCATION: Right, Lower leg Type of injury: Fall Where injury occurred: Home Timing - onset: Today Timing - duration: Hours Timing - details: Abrupt onset, Now resolved Improved by: Rest Worsened by: Moving, Palpating Associated symptoms: No: Weakness, Numbness, Tingling, Swelling Contributing factors: No: Anticoagulated Similar symptoms before: Diagnosis (contusion) Recently seen: Admitted - Additional information Additional information: This 70-year-old female with chronic renal failure who is refusing dialysis has recently been admitted in the hospital for pneumonia and CHF and she has been returned to her home at [facility] and this morning when caregivers were attempting to help her out of bed she had a fall and she is complaining of right leg pain. She has chronic right leg pain. She is put into an ambulance and sent to the hospital for further evaluation. Review of Systems Constitutional: denies: Fever Eyes: denies: Decreased vision Ears: denies: Ear pain Nose: denies: Congestion Throat: denies: Sore throat Cardiac: denies: Chest pain / pressure Respiratory: denies: Cough GI: denies: Vomiting Musculoskeletal: reports: Extremity pain Neurologic: reports: Generalized weakness, Focal weakness PD PAST MEDICAL HISTORY - Past Medical History Past Medical History: Yes Cardiovascular: Hypertension Respiratory: None Neuro: Other Endocrine/Autoimmune: Type 2 diabetes GI: None TAR POT MAN: Other : Renal insuffiency HEENT: None Psych: Depression Musculoskeletal: Osteoarthritis, Fatigue, Other Derm: None - Past Surgical History Past Surgical History: No - Present Medications Home Medications: Ambulatory Orders Medication Instructions Recorded Confirmed Aspirin [Aspirin EC] 81 mg PO DAILY 06/20/20 12/25/20 Sevelamer Carbonate [Renvela] 1,600 mg PO BID 06/20/20 12/24/20 Sodium Bicarbonate 650 mg PO BID 06/20/20 12/24/20 calcitrioL [Rocaltrol] 0.25 mcg PO SUTUTHSA 06/20/20 12/25/20 Ergocalciferol [Vitamin D2] 50,000 unit PO WE 07/09/20 12/25/20 Amlodipine Besylate/Benazepril 1 each PO DAILY 12/15/20 12/25/20 [Lotrel 10-40 mg Capsule] Atorvastatin Calcium 40 mg PO QPM 12/15/20 12/25/20 Metoprolol Succinate [Toprol Xl] 100 mg PO DAILY 12/15/20 12/25/20 calcitrioL [Rocaltrol] 0.5 mcg PO MOWEFR 12/15/20 12/25/20 Acetaminophen [Tylenol] 650 mg PO Q4HR PRN tablet 12/21/20 12/25/20 Docusate Sodium 250Mg Capsule 250 mg PO DAILY PRN #30 cap 12/21/20 12/25/20 [Colace 250Mg Capsule] Hydralazine HCl 100 mg PO TID #180 tab 12/21/20 12/25/20 Insulin Aspart [NovoLOG] 3 - 11 unit SUBQ 12/21/20 12/25/20 0800,1200,1700,2100 #1 pe Furosemide [Lasix] 40 mg PO DAILY 12/24/20 12/25/20 Gabapentin [Neurontin] 100 mg PO QPM 12/24/20 12/25/20 Insulin Glargine [Lantus Solostar] 25 unit SUBQ QPM 12/24/20 12/25/20 - Allergies Allergies/Adverse Reactions: Allergies Allergy/AdvReac Type Severity Reaction Status Date / Time No Known Drug Allergies Allergy Verified 12/25/20 05:42 - Social History Does the pt smoke?: No Smoking Status: Never smoker Does the pt drink ETOH?: No Does the pt have substance abuse?: No - Immunizations Immunizations are current?: Yes - POLST Patient has POLST: Yes POLST Status: DNR PD ED PE NORMAL - Vitals Vital signs reviewed: Yes (hypertensive ) - General General: No acute distress, Well developed/nourished - HEENT HEENT: Atraumatic, PERRL, EOMI - Neck Neck: Supple, no meningeal sign, No bony TTP - Cardiac Cardiac: RRR, No murmur - Respiratory Respiratory: No respiratory distress, Clear bilaterally - Abdomen Abdomen: Normal bowel sounds, Soft, Non tender, Non distended, No organomegaly - Back Back: No CVA TTP, No spinal TTP - Derm Derm: Normal color, Warm and dry, No rash - Extremities Extremities: No deformity, Other (There is pain to palpation of the lower ext and to movement and the pain is out of proportion to exam. There is minimal edema) - Neuro Neuro: No motor deficit, No sensory deficit Eye Opening: Spontaneous Motor: Obeys Commands Verbal: Oriented GCS Score: 15 - Psych Psych: Other (mood is sad and affect is labile. ) Results - Vitals Vitals: Vital Signs - 24 hr 12/25/20 12/25/20 12/25/20 19:33 21:30 22:49 Temperature 36.6 C Heart Rate 62 65 63 Respiratory 16 16 16 Rate Blood Pressure 166/59 H 159/62 H 131/54 H O2 Saturation 97 95 97 12/26/20 12/26/20 06:00 09:40 Temperature 36.2 C L Heart Rate 65 72 Respiratory 16 18 Rate Blood Pressure 155/74 H 160/66 H O2 Saturation 95 99 Oxygen O2 Source Room air - Labs Labs: Laboratory Tests 12/25/20 12/25/20 12/25/20 07:53 07:53 14:44 WBC 6.7 RBC 2.98 L Hgb 8.9 L Hct 28.5 L MCV 95.6 MCH 29.9 MCHC 31.2 L RDW 14.0 Plt Count 159 MPV 10.0 Neut # (Auto) 4.5 Lymph # (Auto) 0.9 L Hand # (Auto) 0.9 Eos # (Auto) 0.3 Baso # (Auto) 0.0 Absolute Nucleated RBC 0.00 Nucleated RBC % 0.0 Sodium 138 Potassium 3.9 Chloride 108 Carbon Dioxide 20 L Anion Gap 10.0 BUN 79 H Creatinine 5.5 H Estimated GFR (MDRD) 8 L Glucose 172 H Calcium 10.2 Total Bilirubin 0.6 AST 23 ALT 29 Alkaline Phosphatase 61 Total Protein 6.3 L Albumin 3.1 L Globulin 3.2 Albumin/Globulin Ratio 1.0 Lipase 71 H Urine Color YELLOW Urine Clarity CLEAR Urine pH 6.0 Ur Specific [place] 1.020 Urine Protein >=300 H Urine Glucose (UA) 100 H Urine Ketones NEGATIVE Urine Occult Blood NEGATIVE Urine Nitrite NEGATIVE Urine Bilirubin NEGATIVE Urine Urobilinogen 0.2 (NORMAL) Ur Leukocyte Esterase NEGATIVE Urine RBC 0-5 Urine WBC 0-3 Ur Squamous Epith Cells FEW Squamous Urine Bacteria None Seen Urine Mucus Few Strands Ur Microscopic Review INDICATED Urine Culture Comments NOT INDICATED - Rads (name of study) tib/fib Radiology: Prelim report reviewed (Patient: No visualized acute fracture or dislocation.), EMP read indepedently, See rad report PD MEDICAL DECISION MAKING - ED course Complexity details: reviewed results, re-evaluated patient, considered differential, d/w patient ED course: 70-year-old female was being assisted this morning when she collapsed injuring her right leg and she was sent to the emergency department for evaluation of pain in her right leg. The patient has pain in this extremity and has had for the past 3 weeks and she has a reduced ability to ambulate. She has been seen by neurology she has been evaluated and she has chronic renal failure and has not reached the point of dialysis. She is refusing dialysis services at this time and does not want to proceed with preparation for dialysis. The patient is refusing treatments and she is not on hospice. [facility] will not take her back unless she is on hospice. The patient does not want to be on dialysis. The patient is in need of physical therapy for improved strength in the right leg and physical therapy did come to evaluate the patient and have recommended assisted facility with physical therapy for best result. We were not able to place the patient in a assisted facility today and she will board overnight in the emergency department. I discussed with the patient her desires to forego dialysis treatment and I have recommended that she follow-up with Dr. Duong regarding any and all treatments available for worsening renal failure as this is a long process of dying and there are number of issues that will need addressing as she progresses. The patient has boarded overnight in the emergency department and a assisted facility was identified for the patient and arrangements were made for transfer the patient to the assisted facility. They subsequently declined the patient and we are continuing to work on finding a suitable facility for this patient. At shift change care is turned over to Dr. Guerrero pending disposition. The patient is now boarding in the ED. 12-26-2020 1530 Departure - Departure Disposition: 01 Home, Self Care Clinical Impression: Right leg weakness Anemia in chronic kidney disease (CKD) Qualifiers: Chronic kidney disease stage: stage 5, not on chronic dialysis Qualified Code(s): N18.5 - Chronic kidney disease, stage 5 Condition: Stable Instructions: ED Neuropathy Peripheral Follow-Up: Chari Hawkins MD [Primary Care Provider] -
[2020-12-25 08:00] LABS: BASOPHILS % (AUTO) 0.6 %; EOSINOPHILS # (AUTO) 0.3 10^3/uL (0.0-0.7); EOSINOPHILS % (AUTO) 3.9 %; HCT - HEMATOCRIT 28.5 % (37.0-47.0); HGB - HEMOGLOBIN 8.9 g/dL (12.0-16.0); LYMPHOCYTES # (AUTO) 0.9 10^3/uL (1.5-3.5); LYMPHOCYTES % (AUTO) 13.6 %; MEAN CORPUSCULAR HEMOGLOBIN 29.9 pg (27.0-31.0); MEAN CORPUSCULAR HGB CONC 31.2 g/dL (32.0-36.0); MEAN CORPUSCULAR VOLUME 95.6 fL (81.0-99.0); MONOCYTES # (AUTO) 0.9 10^3/uL (0.0-1.0); MONOCYTES % (AUTO) 13.6 %; NEUTROPHILS # (AUTO) 4.5 10^3/uL (1.5-6.6); NEUTROPHILS % (AUTO) 67.6 %; PLT - PLATELET COUNT 159 10^3/uL (130-450); RED BLOOD COUNT 2.98 10^6/uL (4.20-5.40); WHITE BLOOD COUNT 6.7 x10^3/uL (4.8-10.8)
[2020-12-25 08:17] LABS: ALBUMIN 3.1 g/dL (3.2-5.5); BILIRUBIN,TOTAL 0.6 mg/dL (0.2-1.0); CALCIUM 10.2 mg/dL (8.5-10.3); CREATININE 5.5 mg/dL (0.4-1.0); POTASSIUM 3.9 mmol/L (3.5-5.0); TOTAL PROTEIN 6.3 g/dL (6.7-8.2)
--- NOTE | 2020-12-25 10:59 | XRAY Report ---
PROCEDURE: Tib/Fib RT INDICATIONS: Injury from transferring resident @ the nursing [facility] TECHNIQUE: 2 views of the tibia and fibula were acquired. COMPARISON: Right foot 12/16/2020 FINDINGS: Bones: No fractures or dislocations. No suspicious bony lesions. Soft tissues: No suspicious soft tissue calcifications or masses. IMPRESSION: No visualized acute fracture or dislocation. However, occult injury cannot be excluded. Recommend almaz rt interval imaging follow-up in 7-10 days as clinically indicated for additional evaluation. The above findings are concordant with preliminary report. Reviewed by: Angelica Crenshaw MD on 12/25/2020 10:58 AM PDT Approved by: Angelica Crenshaw MD on 12/25/2020 10:58 AM PDT Station ID: [id number]
[2020-12-25 14:46] LABS: BILIRUBIN,URINE NEGATIVE (NEGATIVE); GLUCOSE, URINE (UA) 100 mg/dL (NEGATIVE); KETONES,URINE (UA) NEGATIVE (NEGATIVE); LEUKOCYTE ESTERASE, URINE NEGATIVE (NEGATIVE); NITRITE,URINE NEGATIVE (NEGATIVE); OCCULT BLOOD,URINE NEGATIVE (NEGATIVE); PROTEIN,URINE >=300 mg/dL (NEGATIVE); UROBILINOGEN,URINE 0.2 (NORMAL) E.U./dL (NORMAL)
[2020-12-25 14:47] LABS: CLARITY,URINE CLEAR (CLEAR)
[2020-12-25 14:52] LABS: BACTERIA,URINE None Seen /HPF (None Seen); MUCUS,URINE Few Strands; RBC,URINE 0-5 /HPF (0-5); SQUAMOUS EPITHELIAL CELL,UR FEW Squamous (<= Few); WBC,URINE 0-3 /HPF (0-5)
[2020-12-25] MEDS ORDERED: GABAPENTIN 100 MG CAPSULE PO STA (17:47)
[2020-12-25] MEDS ORDERED: amLODIPine 5 MG TABLET PO STA (17:51)
[2020-12-25] MEDS ORDERED: FUROSEMIDE 20 MG TABLET PO STA (18:09)
[2020-12-25] MEDS ORDERED: hydrALAZINE 25 MG TABLET PO SCH ×2 (21:00)
[2020-12-25] MEDS: hydrALAZINE 25 MG TABLET PO SCH (21:47)
[2020-12-25] MEDS: SEVELAMER 800 MG TABLET PO SCH (21:47)
[2020-12-25] MEDS: ATORVASTATIN 40 MG TABLET PO SCH (21:47)
[2020-12-25] MEDS: INSULIN GLARGINE 300 UNIT/3 ML PEN SUBQ SCH (21:48)
[2020-12-25] MEDS: SODIUM BICARBONATE 650 MG TABLET PO SCH (21:58)
[2020-12-26] MEDS: hydrALAZINE 25 MG TABLET PO SCH ×3 (06:05→21:51)
[2020-12-26] MEDS: METOPROLOL SUCCINATE 50 MG TABLET PO SCH (09:45)
[2020-12-26] MEDS: SODIUM BICARBONATE 650 MG TABLET PO SCH ×2 (10:00→21:12)
[2020-12-26] MEDS: SEVELAMER 800 MG TABLET PO SCH ×2 (10:00→21:10)
[2020-12-26] MEDS: ATORVASTATIN 40 MG TABLET PO SCH (21:08)
[2020-12-26] MEDS: INSULIN GLARGINE 300 UNIT/3 ML PEN SUBQ SCH (21:14)
[2020-12-27] MEDS: hydrALAZINE 25 MG TABLET PO SCH ×2 (05:54→14:19)
[2020-12-27] MEDS: ATORVASTATIN 40 MG TABLET PO SCH (10:55)
[2020-12-27] MEDS: METOPROLOL SUCCINATE 50 MG TABLET PO SCH (10:55)
[2020-12-27] MEDS: SEVELAMER 800 MG TABLET PO SCH (11:32)
[2020-12-27] MEDS: SODIUM BICARBONATE 650 MG TABLET PO SCH (11:33)
[2020-12-27 12:33] LABS: B. PARAPERTUSSIS- RESP PCR PAN NOT DETECTED; B. PERTUSSIS- RESP PCR PANEL NOT DETECTED; C. PNEUMONIAE- RESP PCR PANEL NOT DETECTED; CORONAVIRUS 229E-RESP PCR NOT DETECTED; CORONAVIRUS HKU1-RESP PCR NOT DETECTED; CORONAVIRUS NL63-RESP PCR NOT DETECTED; CORONAVIRUS OC43-RESP PCR NOT DETECTED; HUMAN METAPNEUMOVIRUS NOT DETECTED; INFLUENZA A- RESP PCR PANEL NOT DETECTED; INFLUENZA B - RESP PCR PANEL NOT DETECTED; M. PNEUMONIAE- RESP PCR PANEL NOT DETECTED; PARAINFLUENZA VIRUS 1 NOT DETECTED; PARAINFLUENZA VIRUS 2 NOT DETECTED; PARAINFLUENZA VIRUS 3 NOT DETECTED; PARAINFLUENZA VIRUS 4 NOT DETECTED; RHINOVIRUS/ENTEROVIRUS NOT DETECTED; RSV- RESP PCR PANEL NOT DETECTED; SARS-CoV-2 -RESP PCR PANEL NOT DETECTED
[2020-12-27 14:23] VITALS: BP 170/73
== END 2020-12-27 15:00 | disposition home or self-care (01) ==
LOC: EDSEX → ED 05:34
DX: M79.604 Pain in right leg (principal); W18.39XA Other fall on same level, initial encounter; Y92.122 Bedroom in nursing home as the place of occurrence of the external cause; R29.898 Other symptoms and signs involving the musculoskeletal system; R53.1 Weakness; Z20.822 Contact with and (suspected) exposure to COVID-19; I12.0 Hypertensive chronic kidney disease with stage 5 chronic kidney disease or end stage renal disease; E11.22 Type 2 diabetes mellitus with diabetic chronic kidney disease; N18.5 Chronic kidney disease, stage 5; Z79.4 Long term (current) use of insulin; Z79.82 Long term (current) use of aspirin; Z53.20 Procedure and treatment not carried out because of patient's decision for unspecified reasons
CPT/HCPCS: 36415; 73590; 80053; 81001; 83690; 85025; 87631; 99284; A9270; J1815; 0202U; 81003; 87086